=== PATIENT | female | born 1955 | race Caucasian/White ===

== ENCOUNTER 2019-11-22 09:13 | Inpatient (IN) ==
[2019-11-22] MEDS ORDERED: 0.9 % SODIUM CHLORIDE 1,000 ML IV ONE ×3 (09:20→16:19)
[2019-11-22] MEDS ORDERED: cefTRIAXone 1 GM VIAL IV ONE (09:20)
--- NOTE | 2019-11-22 09:20 | Emergency Department Note ---
HPI General Chief complaint: Trauma Stated complaint: blood sugar Time Seen by Provider: 11/22/19 09:17 Mode of arrival: wheelchair History of Present Illness HPI Narrative: 64-year-old patient presenting to the emergency department chief complaint of altered mentation. Historical clues assessed for include recent febrile illness, history of organ failure, medication list evaluation, alcohol drug abuse, recent depression. Patient is confused at time of evaluation and history is limited. There are no exacerbating or ameliorating factors identified at this time. Time course is acute on chronic. Patient with multiple falls history of elevated blood sugar does have a blood sugar monitor continuously assesses her blood sugar and sends updates to her 's phone. received a text alert saying her blood sugar was elevated he went into check on her and noted that she was face down and with decreased responsiveness. EMS was notified and patient was brought into the emergency department. Patient had line started in the field no medications or other actions were taken. Patient was responsive to name and questioning during stay and initial presentation to the ED. Related Data Home Medications Medication Instructions Recorded Confirmed albuterol sulfate [ProAir HFA] 1 - 2 puff IH PRN PRN 12/30/14 01/29/17 mdiavpzxkb-xabhpqwxqk-uof-cod 1 cap PO DAILYP PRN 12/30/14 01/29/17 cholecalciferol (vitamin D3) 2,000 unit PO QDAY 12/30/14 01/29/17 cilostazol [Pletal] 200 mg PO BID 12/30/14 01/29/17 furosemide 40 mg PO BIDD 12/30/14 01/29/17 glucosamine sulfate 2KCl 1,000 mg PO BID 12/30/14 01/29/17 insulin aspart U-100 [Novolog 24 - 28 unit SQ TID 12/30/14 01/29/17 U-100 Insulin aspart] insulin glargine U-300 conc 34 unit SQ HS 12/30/14 01/29/17 [Toujeo SoloStar U-300 Insulin] hzbndmhmntew-dnha-apsbi acid 1 ea PO QDAY 12/30/14 01/29/17 [Centrum Complete] nitroglycerin 0.4 mg SL Q5M PRN 12/30/14 01/29/17 potassium chloride 10 meq PO BIDCC 12/30/14 01/29/17 pregabalin [Lyrica] 150 mg PO TID 12/30/14 01/29/17 venlafaxine 75 mg PO BID 12/30/14 01/29/17 zolpidem 10 mg PO HSP PRN 12/30/14 01/29/17 rabeprazole [AcipHex] 20 mg PO ACB 10/13/15 01/29/17 Hydrocodone/Apap 7.5/325mg [[place] 1 tab PO TIDP PRN 02/01/16 01/29/17 7.5-325mg] aspirin 325 mg PO DAILY 02/07/16 01/29/17 amiodarone 200 mg tablet 200 mg PO .unknown tab 09/09/19 09/09/19 apixaban 5 mg tablet 5 mg PO .unknown tab 09/09/19 09/09/19 calcipotriene 0.005 % topical cream 1 applic TOPICAL .unknown g 09/09/19 09/09/19 carbidopa 10 mg-levodopa 100 mg 1 tab PO .unknown tab 09/09/19 09/09/19 tablet lorazepam 2 mg tablet 2 mg PO .unknown PRN tab 09/09/19 09/09/19 metoprolol tartrate 100 mg tablet 100 mg PO .unknown tab 09/09/19 09/09/19 morphine 15 mg tablet,extended 15 mg PO BID tab 09/09/19 09/09/19 release naloxone 4 mg/actuation nasal spray 4 mg INTRANASAL Q2M PRN 09/09/19 09/09/19 pregabalin 75 mg capsule 75 mg PO QID cap 09/09/19 09/09/19 Previous Rx's Medication Instructions Recorded methocarbamol 750 mg PO Q6HP PRN #30 tablet 02/09/16 Allergies Allergy/AdvReac Type Severity Reaction Status Date / Time indomethacin [From Indocin] Allergy Severe Rash Verified 05/28/16 09:16 Amoxicillin [From Augmentin] Allergy Intermediate Rash Verified 05/28/16 09:16 clavulanic acid Allergy Intermediate Rash Verified 05/28/16 09:16 [From Augmentin] Penicillins Allergy Intermediate Rash Verified 05/28/16 09:16 fentanyl Allergy burning Verified 09/09/19 13:32 sesation throughout body hydromorphone [From Dilaudid] Allergy HTN, Verified 09/09/19 13:32 Migraines NSAIDS (Non-Steroidal Allergy unknown Verified 09/09/19 13:32 Anti-Inflamma pregabalin [From Lyrica] Allergy Edema Verified 09/09/19 13:32 clonidine [From Catapres] AdvReac Severe Hypertensio Verified 05/28/16 09:16 n gabapentin [From Neurontin] AdvReac Severe Abdominal Verified 05/28/16 09:16 Pain Iodinated Contrast Media AdvReac Severe Hives Verified 05/28/16 09:16 [Iodinated Contrast Media - IV Dye] methadone [Methadone] AdvReac Severe Swelling Verified 05/28/16 09:16 propranolol [From Inderal LA] AdvReac Severe Difficulty Verified 05/28/16 09:16 Breathing ziconotide [From Prialt] AdvReac Severe Other Verified 05/28/16 09:16 Review of Systems All systems ED: reviewed and negative except as stated. [facility] Medical/Surgical/Family History All Active Problems (Updated 11/22/19 @ 19:07 by Simone Young MD) Sepsis (Acute) Complex regional pain syndrome i of upper limb, bilateral (Chronic) Complex regional pain syndrome i of lower limb, bilateral (Chronic) Chronic pain (Chronic) Cervical spondylosis with radiculopathy (Chronic) Spondylosis without myelopathy or radiculopathy, lumbar region (Chronic) Knee osteoarthritis (Acute) S/P total knee arthroplasty (Acute) Urinary tract infection (Acute) Medical History (Updated 11/22/19 @ 19:07 by Simone Young MD) Cervical spondylosis with radiculopathy (Chronic) Chronic pain (Chronic) Complex regional pain syndrome i of lower limb, bilateral (Chronic) Complex regional pain syndrome i of upper limb, bilateral (Chronic) Knee osteoarthritis (Acute) Spondylosis without myelopathy or radiculopathy, lumbar region (Chronic) Urinary tract infection (Acute) Surgical History (Updated 10/18/16 @ 14:10 by [employer] [place]) S/P total knee arthroplasty (Acute) Social History Smoking Status: Former smoker Exam Narrative Narrative: General: Alert, somnolent poorly interactive initially this did improve during stay in the emergency department store salesperson: Atraumatic, normocephalic Eyes: Extraocular movements intact, sclera anicteric, no conjunctival injection Ears: Pinnae normal, no discharge Mouth: Oral mucosa moist, no acute swelling or evidence of infection Nares: No nasal discharge, patent bilaterally Neck: Trachea midline, full range of motion Chest: Symmetrical chest wall rise, breathing normally; nonlabored respirations Cardiovascular: Patient with excellent perfusion to the extremities; without tachycardia/bradycardia Skin: Patient without area of erythema, patient is without rash, no ascending lymphangitis or lymphadenopathy Extremities: Full range of motion joints, no obvious deformities; patient with erythema and some swelling to the left distal leg, states that this has been present for at least a month Neuro: Alert, disoriented except to person, cranial nerves II through XII grossly intact, patient without lateralizing findings such as weakness, or abnormal reflexes Psychiatric: Patient with some altered mentation Course Course Course Narrative: 64-year-old female noted to have elevated blood sugar by and was found facedown. Patient here noted to be febrile with some confusion and altered mentation. Patient with elevated lactate as well as white blood cell count. Chest x-ray and routine labs are otherwise negative do not indicate a source. Blood cultures are obtained CT chest abdomen pelvis is also obtained, considered spinal tap run initial attempt with a 4-1/2 inch needle was only able to get to bony structures with needle fully inserted. Patient is also had prior back surgery as result radiology is called to perform spinal tap. We did attempt in the ED 2 separate spinal tap. Initially with a 4-1/2 inch needle and then a 7-1/2 inch needle and were unable to obtain CSF. Patient did receive Rocephin immediately after blood cultures were obtained, as well as vancomycin. Patient with improved mentation after fluids and Rocephin however her lactate did increase rather than decrease additional fluids are provided. Findings include increasing temperature, elevated white blood cell count, elevated creatinine at 1.2 received a total of 3 L of IV fluids during her stay in the emergency department. Vital Signs Vital signs: Vital Signs Temperature 102.4 F H 11/22/19 09:14 Pulse Rate 81 11/22/19 09:14 Respiratory Rate 25 H 11/22/19 09:14 Blood Pressure 175/85 11/22/19 09:14 Pulse Oximetry (%) 97 11/22/19 09:14 Temperature 103.3 F H 11/22/19 18:10 Pulse Rate 102 H 11/22/19 18:20 Respiratory Rate 28 H 11/22/19 18:10 Blood Pressure 182/59 11/22/19 18:10 Pulse Oximetry (%) 95 11/22/19 18:20 MDM MDM Narrative Medical decision making narrative: 64-year-old patient presenting to the emergency department chief complaint of altered mental status. Patient's recent medical history is evaluated for infectious illnesses, history of organ failure, medication list, drug/alcohol history, and depression patient's mental status made them unable to provide significant clues to current symptoms differential diagnosis included but not limited to stroke, intracranial hemorrhage, electrolyte derangement, DKA/HHS, sepsis, toxicology including alcohol and overdose, status epilepticus. Presentation patient's vital signs are noted to be abnormal with elevated temperature. Blood cultures CBC CMP, CT head chest abdomen pelvis, chest x-ray are obtained as well as urinalysis. Patient without focus for infection identified with these methods and we attempted to obtain spinal fluid. Discussed the case with Dr. Garcia and the consensus medical opinion is to admit the patient to the ICU for ongoing care related to sepsis. Lab Data Result diagrams: 11/22/19 10:47 11/22/19 10:47 Labs: Lab Results 11/22/19 11/22/19 11/22/19 Range/Units 10:27 10:27 10:43 WBC TNP RBC TNP Hgb TNP Hct TNP MCV TNP MCH TNP MCHC TNP RDW TNP Plt Count TNP MPV TNP Gran % (38.0-78.0) % Lymph % (Auto) (15.5-49.0) % [place] % (Auto) (1.0-12.0) % Eos % (Auto) (0.0-7.0) % Baso % (Auto) (0.0-2.0) % Gran # (1.80-8.00) K/mcL Lymph # (Auto) (1.50-4.80) K/mcL [place] # (Auto) (0.10-0.90) K/mcL Eos # (Auto) (0.00-0.70) K/mcL Baso # (Auto) (0.00-0.30) K/mcL PT 14.9 H (11.9-14.5) sec INR 1.1 (0.9-1.1) VBG Lactic Acid (0.5-2.0) mmol/L Sodium TNP Potassium TNP Chloride TNP Carbon Dioxide TNP Anion Gap TNP BUN TNP Creatinine TNP GFR Calculation TNP Glucose TNP Calcium TNP Total Bilirubin TNP AST TNP ALT TNP Alkaline Phosphatase TNP Total Protein TNP Albumin TNP Globulin TNP Albumin/Globulin Ratio TNP Urine Color Urine Appearance Urine pH (5.0-9.0) Ur Specific [place] (1.000-1.035) Urine Protein (NEG) mg/dL Urine Glucose (UA) (NEG) mg/dL Urine Ketones (NEG) mg/dL Urine Occult Blood (<0.03) mg/dL Urine Nitrate (NEG) Urine Bilirubin (NEG) mg/dL Urine Urobilinogen (NEG) mg/dL Ur Leukocyte Esterase (NEG) /uL Urine RBC (0-1) /hpf Urine WBC (0-4) /hpf Ur Squamous Epith Cells (0-4) /hpf Ur Transition Epith Cell (0-2) /hpf Amorphous Crystals (0) /hpf Urine Bacteria (0) /hpf Urine Mucus (0) /hpf Ur Culture Indicated? 11/22/19 11/22/19 11/22/19 Range/Units 10:47 10:47 10:47 WBC 27.6 H RBC 4.93 Hgb 13.8 Hct 42.5 MCV 86.2 MCH 28.0 MCHC 32.5 RDW 13.9 Plt Count 201 MPV 11.4 H Gran % 94.7 H (38.0-78.0) % Lymph % (Auto) 2.2 L (15.5-49.0) % [place] % (Auto) 2.7 (1.0-12.0) % Eos % (Auto) 0.1 (0.0-7.0) % Baso % (Auto) 0.3 (0.0-2.0) % Gran # 26.15 H (1.80-8.00) K/mcL Lymph # (Auto) 0.60 L (1.50-4.80) K/mcL [place] # (Auto) 0.75 (0.10-0.90) K/mcL Eos # (Auto) 0.02 (0.00-0.70) K/mcL Baso # (Auto) 0.09 (0.00-0.30) K/mcL PT (11.9-14.5) sec INR (0.9-1.1) VBG Lactic Acid 2.9 H (0.5-2.0) mmol/L Sodium 137 Potassium 4.0 Chloride 97 Carbon Dioxide 26 Anion Gap 14.0 BUN 11 Creatinine 1.2 H GFR Calculation 48 Glucose 205 H Calcium 8.6 Total Bilirubin 0.5 AST 21 ALT 15 Alkaline Phosphatase 118 H Total Protein 6.9 Albumin 2.9 L Globulin 4.0 H Albumin/Globulin Ratio 0.7 L Urine Color Urine Appearance Urine pH (5.0-9.0) Ur Specific [place] (1.000-1.035) Urine Protein (NEG) mg/dL Urine Glucose (UA) (NEG) mg/dL Urine Ketones (NEG) mg/dL Urine Occult Blood (<0.03) mg/dL Urine Nitrate (NEG) Urine Bilirubin (NEG) mg/dL Urine Urobilinogen (NEG) mg/dL Ur Leukocyte Esterase (NEG) /uL Urine RBC (0-1) /hpf Urine WBC (0-4) /hpf Ur Squamous Epith Cells (0-4) /hpf Ur Transition Epith Cell (0-2) /hpf Amorphous Crystals (0) /hpf Urine Bacteria (0) /hpf Urine Mucus (0) /hpf Ur Culture Indicated? 11/22/19 11/22/19 Range/Units 12:38 13:30 WBC RBC Hgb Hct MCV MCH MCHC RDW Plt Count MPV Gran % (38.0-78.0) % Lymph % (Auto) (15.5-49.0) % [place] % (Auto) (1.0-12.0) % Eos % (Auto) (0.0-7.0) % Baso % (Auto) (0.0-2.0) % Gran # (1.80-8.00) K/mcL Lymph # (Auto) (1.50-4.80) K/mcL [place] # (Auto) (0.10-0.90) K/mcL Eos # (Auto) (0.00-0.70) K/mcL Baso # (Auto) (0.00-0.30) K/mcL PT (11.9-14.5) sec INR (0.9-1.1) VBG Lactic Acid 4.3 H* (0.5-2.0) mmol/L Sodium Potassium Chloride Carbon Dioxide Anion Gap BUN Creatinine GFR Calculation Glucose Calcium Total Bilirubin AST ALT Alkaline Phosphatase Total Protein Albumin Globulin Albumin/Globulin Ratio Urine Color Yellow Urine Appearance Hazy Urine pH 6.0 (5.0-9.0) Ur Specific [place] 1.016 (1.000-1.035) Urine Protein >=500 A (NEG) mg/dL Urine Glucose (UA) 50 A (NEG) mg/dL Urine Ketones Neg (NEG) mg/dL Urine Occult Blood >=1.0 A (<0.03) mg/dL Urine Nitrate Neg (NEG) Urine Bilirubin Neg (NEG) mg/dL Urine Urobilinogen Neg (NEG) mg/dL Ur Leukocyte Esterase Neg (NEG) /uL Urine RBC 176 H (0-1) /hpf Urine WBC 5 H (0-4) /hpf Ur Squamous Epith Cells 2 (0-4) /hpf Ur Transition Epith Cell 1 (0-2) /hpf Amorphous Crystals Few A (0) /hpf Urine Bacteria 0 (0) /hpf Urine Mucus Few (0) /hpf Ur Culture Indicated? No CC TIME Critical Care Time Critical Care Time: Yes Total Critical Care Time: 120 Attestation: This critical care time was direct patient care exclusive of other procedures. Discharge Plan Patient/Caregiver Discharge Instructions Pt seen by ACADEMY DIRECTOR/PA only: No Clinical Impression: Sepsis Prescriptions: No Action Narcan 4 mg/actuation spray,non-aerosol 4 mg INTRANASAL Q2M PRNRF: 0 morphine 15 mg tablet extended release 15 mg PO BID RF: 0 carbidopa-levodopa 10-100 mg tablet 1 tab PO .unknown RF: 0 Eliquis 5 mg tablet 5 mg PO .unknown RF: 0 amiodarone 200 mg tablet 200 mg PO .unknown RF: 0 metoprolol tartrate 100 mg tablet 100 mg PO .unknown RF: 0 pregabalin [Lyrica] 75 mg capsule 75 mg PO QID RF: 0 lorazepam 2 mg tablet 2 mg PO .unknown PRNRF: 0 calcipotriene [Dovonex] 0.005 % cream 1 applic TOPICAL .unknown RF: 0 furosemide 40 MG tablet 40 mg PO BIDD RF: 0 venlafaxine 75 MG tablet 75 mg PO BID RF: 0 cilostazol [Pletal] 50 MG tablet 200 mg PO BID RF: 0 potassium chloride 10 MEQ tablet extended release 10 meq PO BIDCC RF: 0 insulin aspart U-100 [Novolog U-100 Insulin aspart] 100 UNIT/ML solution 24 - 28 unit SQ TID RF: 0 oktomizlit-hncsdoinym-llq-cod 1 EACH capsule 1 cap PO DAILYP PRN (Reason: Migraine Headache) RF: 0 nitroglycerin 0.4 MG tablet, sublingual 0.4 mg SL Q5M PRN (Reason: Chest Pain) RF: 0 zolpidem 10 MG tablet 10 mg PO HSP PRN (Reason: Insomnia) RF: 0 pregabalin [Lyrica] 150 MG capsule 150 mg PO TID RF: 0 insulin glargine U-300 conc [Toujeo SoloStar U-300 Insulin] 300 UNIT/ML insulin pen 34 unit SQ HS RF: 0 glucosamine sulfate 2KCl 1,000 MG tablet 1,000 mg PO BID RF: 0 cholecalciferol (vitamin D3) 2,000 UNIT tablet 2,000 unit PO QDAY RF: 0 qbxnunplvjtj-ayfj-tgrfn acid [Centrum Complete] 1 EACH tablet 1 ea PO QDAY RF: 0 albuterol sulfate [ProAir HFA] 8.5 GM HFA aerosol inhaler 1 - 2 puff IH PRN PRN (Reason: Shortness Of Breath) RF: 0 rabeprazole [AcipHex] 20 MG tablet,delayed release (DR/EC) 20 mg PO ACB RF: 0 Hydrocodone/Apap 7.5/325mg [[place] 7.5-325mg] 1 TAB Tablet 1 tab PO TIDP PRN (Reason: Pain) RF: 0 aspirin 325 MG tablet,delayed release (DR/EC) 325 mg PO DAILY RF: 0 methocarbamol 750 MG tablet 750 mg PO Q6HP PRN (Reason: Muscle Spasm) Qty: 30 RF: 0 Follow up with: Derrek Keen MD [Primary Care Provider] - Patient Disposition: Xfer As Inpt ([facility]) Overall status at discharge: patient is not back to baseline
--- NOTE | 2019-11-22 10:41 | XRay Report ---
INDICATION: CP/dyspnea TECHNIQUE: AP portable semiupright chest x-ray COMPARISON: Previous examination dated 12/23/2013 FINDINGS:Suboptimal chest x-ray due to large body habitus Lungs:Lungs are negative. No focal pulmonary parenchymal infiltrate or mass Heart, vascular:No significant cardiomegaly. Pulmonary vascularity is normal. No pulmonary edema or pulmonary congestion Mediastinum, josette:No mediastinal widening. No hilar mass Pleura:No pleural fluid. No pleural-based mass or calcification Skeletal:Negative. IMPRESSION: Negative AP portable chest x-ray Interpreted and Authenticated by: Ramses Cantor 11/22/19
[2019-11-22 12:09] LABS: Basophils # (Auto) 0.09 K/mcL (0.00-0.30); Basophils % (Auto) 0.3 % (0.0-2.0); Eosinophils # (Auto) 0.02 K/mcL (0.00-0.70); Eosinophils % (Auto) 0.1 % (0.0-7.0); Granulocytes % (Auto) 94.7 % (38.0-78.0); Hematocrit 42.5 % (34.1-44.9); Hemoglobin 13.8 g/dL (11.2-15.7); Lymphocytes % (Auto) 2.2 % (15.5-49.0); Mean Cell Volume 86.2 fL (80.0-100.0); Mean Corpuscular HGB Conc 32.5 g/dL (31.0-36.0); Mean Platelet Volume 11.4 fL (7.4-10.4); Monocytes # (Auto) 0.75 K/mcL (0.10-0.90); Monocytes % (Auto) 2.7 % (1.0-12.0); Platelet Count 201 K/mcL (140-440); RBC 4.93 M/mcL (3.59-5.38); Red Cell Distribution Width 13.9 % (11.5-14.5); WBC 27.6 K/mcL (4.50-11.00)
[2019-11-22 12:11] LABS: ALT/SGPT 15 U/l (0-40); AST/SGOT 21 U/l (0-37); Albumin 2.9 gm/dL (3.2-5.2); Albumin/Globulin Ratio 0.7 (1.0-2.3); Alkaline Phosphatase 118 U/L (39-117); Bilirubin,Total 0.5 mg/dL (0.0-1.0); Blood Urea Nitrogen 11 mg/dl (8-23); Calcium 8.6 mg/dl (8.6-10.4); Carbon Dioxide 26 mmol/L (22-30); Chloride 97 mmol/L (96-108); Glomerular Filtration Rate 48; Glucose 205 mg/dL (70-105)
--- NOTE | 2019-11-22 14:33 | Cat Scan Report ---
INDICATION: trauma, fell face down COMPARISON: None. TECHNIQUE: Axial noncontrast-enhanced images through the brain. Sagittally and coronally reformatted images. FINDINGS: Cerebral hemispheres:Negative. No intra-axial abnormality. No intra-axial hematoma. No localized mass effect. Brain volume is within normal limits. No hydrocephalus Brainstem and cerebellum:No intra-axial abnormality Extra-axial:No acute hemorrhage. No subdural or epidural hematoma. No subarachnoid hemorrhage. Basilar cisterns are normal Calvarial:No calvarial fracture. No lytic lesion Temporal bones are negative. No destructive lesions Soft tissue:Orbits and visualized facial soft tissues are grossly normal. IMPRESSION: Negative noncontrast enhanced brain CT scan The exam was performed using radiation dose optimization techniques including, but not limited to, automated exposure control, adjustment of the mA and/or kV according to patient size and use of iterative reconstruction technique. Interpreted and Authenticated by: Ramses Cantor 11/22/19
--- NOTE | 2019-11-22 14:35 | Cat Scan Report ---
INDICATION: fall COMPARISON: None. TECHNIQUE: Axial thin section images through the cervical spine. Sagittally and coronally reformatted images. The exam was performed using radiation dose optimization techniques including, but not limited to, automated exposure control, adjustment of the mA and/or kV according to patient size and use of iterative reconstruction technique. FINDINGS: Vertebral bodies, spinous processes:No vertebral body or spinous process fracture. No acute abnormality. Alignment is anatomic without anterolisthesis. Odontoid process is normal. Occipital condyles and C1 are negative. No atlantoaxial subluxation Facets:No perched or locked facet. No facet complex fracture. Disc spaces:Severe degenerative disc disease at C5-6. Mild to moderate degenerative disc disease at C4-5 and C6-7. Temporal bones:Negative. No basilar skull fracture Cervical soft tissues:Negative. No prevertebral soft tissue swelling. No focal soft tissue mass or acute abnormality Lung apices:No pneumothorax. No pulmonary contusion. IMPRESSION: 1. Degenerative disc disease 2. No cervical spine fracture Interpreted and Authenticated by: Ramses Cantor 11/22/19
[2019-11-22 14:40] LABS: Appearance,Urine HAZY; Bacteria,Urine 0 /hpf (0); Bilirubin,Urine NEG (NEG); Color,Urine YELLOW; Culture Indicated,Urine NO; Glucose,Urine (UA) 50 mg/dL (NEG); Ketones,Urine NEG (NEG); Leukocyte Esterase,Urine NEG /uL (NEG); Mucus,Urine FEW /hpf (0); Nitrate,Urine NEG (NEG); Protein,Urine >=500 mg/dL (NEG); Specific Gravity,Urine 1.016 (1.000-1.035); Urine Amorphous Crystals FEW /hpf (0); Urine Blood >=1.0 mg/dL (<0.03); Urine RBC 176 /hpf (0-1); Urine Squamous Epithelial Cell 2 /hpf (0-4); Urine Transitional Epi Cells 1 /hpf (0-2); Urine WBC 5 /hpf (0-4); Urobilinogen,Urine NEG (NEG)
--- NOTE | 2019-11-22 14:48 | Cat Scan Report ---
INDICATION: sepsis no source identified, pt with AMS/confusion COMPARISON: None. TECHNIQUE: Axial images were obtained through the chest,abdomen and pelvis. Sagittally and coronally reformatted images. Patient apparently has a contrast allergy and intravenous contrast material was not administered. Patient was unable to drink oral contrast material FINDINGS: Patient was unable to suspend respirations. Patient was scanned with her arms at her sides. This patient is also very large causing image degradation from quantum mottle Chest CT: Lungs: Lungs are suboptimally demonstrated due to shallow inspiration and inability to suspend respiration. Lungs are negative. No parenchymal infiltrate or mass. No calcified or noncalcified nodule Mediastinum:No mediastinal or hilar lymphadenopathy. Thoracic aorta is negative. No aneurysmal enlargement or dissection. Main pulmonary artery is within normal limits. Heart: Mild cardiomegaly. No pericardial effusion. There is calcified coronary artery disease Pleura:No pleural effusion. No pleural-based mass or calcification Axilla, supraclavicular regions, chest wall:No pathologic axillary or supraclavicular lymphadenopathy Musculoskeletal:No thoracic compression fracture. No lytic or sclerotic lesions. Sternum and ribs are negative Abdomen/Pelvis: Liver:Negative to the limits of noncontrast enhanced examination. No detectable mass. Liver contour is smooth Gallbladder, bilary:Previous cholecystectomy. No dilated bile ducts Spleen:No splenomegaly. Pancreas:No pancreatic mass. No pancreatic duct dilatation. No peripancreatic abnormality Adrenal glands:Negative Kidneys, ureters, bladder: Right kidney is negative for the limits of noncontrast enhanced examination. There is no hydronephrosis. No detectable mass. No calculi. Previous left nephrectomy. No hydroureter or ureteral stone No bladder calculi. There is a [place] catheter within the urinary bladder. Gastrointestinal: Previous hemicolectomy. There is a small bowel - transverse colon anastomosis. No detectable colonic mass. No evidence for diverticulitis or significant diverticulosis Small bowel is negative. No mechanical small bowel obstruction Stomach and duodenum are unremarkable. Appendix: The appendix is not present Vascular:No abdominal aortic aneurysm. Origins of the superior mesenteric artery and celiac artery are normal. There is atherosclerotic calcification of the abdominal aorta. Lymphatic:No retroperitoneal or pathologic mesenteric adenopathy Mesentery, peritoneum:No intra-peritoneal fluid. No intra-abdominal abscess. No pneumoperitoneum Reproductive:Previous hysterectomy. No adnexal mass Musculoskeletal:No compression fractures. No lytic lesions. Sacrum, pelvis, hips are negative. There is a left lumbar hernia with slight protrusion of colon. Hernia defect measures approximately 12 cm in mediolateral dimension and 13 cm in craniocaudal dimension. IMPRESSION: 1. Negative noncontrast enhanced chest CT scan. There is no pneumonia 2. Previous left nephrectomy. Previous hemicolectomy with anterolateral colonic anastomosis. Previous hysterectomy. Previous cholecystectomy 3. Left lumbar hernia with slight colonic protrusion. There is no obstruction or incarceration 4. No intra-abdominal abscess. No free intraperitoneal fluid The exam was performed using radiation dose optimization techniques including, but not limited to, automated exposure control, adjustment of the mA and/or kV according to patient size and use of iterative reconstruction technique. Interpreted and Authenticated by: Ramses Cantor 11/22/19
[2019-11-22] MEDS ORDERED: VANCOMYCIN 1,000 MG in 0.9 % SODIUM CHLORIDE 250 ML IV ONE (16:20)
[2019-11-22] MEDS ORDERED: ACETAMINOPHEN 1,000 MG/100 ML BOTTLE IV ONE (17:09)
[2019-11-22 17:33] LABS: INR 1.1 (0.9-1.1); Prothrombin Time 14.9 sec (11.9-14.5)
[2019-11-22] MEDS ORDERED: hydrALAZINE 20 MG/ML VIAL IV PRN ×2 (17:49→18:57)
--- NOTE | 2019-11-22 18:03 | Internal Med History&Physical ---
HPI History of Present Illness Patient information: Note initiated : 11/22/19 at 6:02 pm Service Date, if different from initiated Date: [] Patient: Bobbi Murphy a 64 y/o F admitted on for blood sugar. Chief Complaint: [] History of present illness: Ms. Murphy is a 64 year old F Who presented to the ED after her was notified via monitor that her blood sugar was elevated and checking on her she was obtunded and facedown. She actually had nearly an identical presentation in September 2018 she was found obtunded with a fever. She was started on broad-spectrum Bactrim antibiotics including acyclovir and did have a elevated lactate with the increase in her repeat lactate as well [place]. Lumbar puncture was ordered but no seen results that were ever done. Her septic picture is attributed to left lower extremity infection which she has had before and what I suspect is the current source. Does not report that her says she was a DNR but I have not talked to the and unable to gather accurate history from the given her altered mental state. She is on significant number of medications that may be contributing to her altered mental state. unAble to gather review of systems [facility] Medical History (Updated 09/09/19 @ 13:44 by Angela Uribe RN) Cervical spondylosis with radiculopathy (Chronic) Chronic pain (Chronic) Complex regional pain syndrome i of lower limb, bilateral (Chronic) Complex regional pain syndrome i of upper limb, bilateral (Chronic) Knee osteoarthritis (Acute) Spondylosis without myelopathy or radiculopathy, lumbar region (Chronic) Urinary tract infection (Acute) Surgical History (Updated 10/18/16 @ 14:10 by Brandfolder MI) S/P total knee arthroplasty (Acute) Social History (Updated 08/01/17 @ 09:32 by Kyra Bradley, CELESTE, LD, CD) smoking status: Former smoker MEDS/ALLERGIES Home Medications and Allergies Home Medications Medication Instructions Recorded Confirmed Type albuterol sulfate [ProAir HFA] 1 - 2 puff IH PRN PRN 12/30/14 01/29/17 History wcwknehzzg-mfkgortmrc-cmo-cod 1 cap PO DAILYP PRN 12/30/14 01/29/17 History cholecalciferol (vitamin D3) 2,000 unit PO QDAY 12/30/14 01/29/17 History cilostazol [Pletal] 200 mg PO BID 12/30/14 01/29/17 History furosemide 40 mg PO BIDD 12/30/14 01/29/17 History glucosamine sulfate 2KCl 1,000 mg PO BID 12/30/14 01/29/17 History insulin aspart U-100 [Novolog 24 - 28 unit SQ TID 12/30/14 01/29/17 History U-100 Insulin aspart] insulin glargine U-300 conc 34 unit SQ HS 12/30/14 01/29/17 History [Toujeo SoloStar U-300 Insulin] fmcxywrwgrdp-inzl-wxxxo acid 1 ea PO QDAY 12/30/14 01/29/17 History [Centrum Complete] nitroglycerin 0.4 mg SL Q5M PRN 12/30/14 01/29/17 History potassium chloride 10 meq PO BIDCC 12/30/14 01/29/17 History pregabalin [Lyrica] 150 mg PO TID 12/30/14 01/29/17 History venlafaxine 75 mg PO BID 12/30/14 01/29/17 History zolpidem 10 mg PO HSP PRN 12/30/14 01/29/17 History rabeprazole [AcipHex] 20 mg PO ACB 10/13/15 01/29/17 History Hydrocodone/Apap 7.5/325mg [[place] 1 tab PO TIDP PRN 02/01/16 01/29/17 History 7.5-325mg] aspirin 325 mg PO DAILY 02/07/16 01/29/17 History methocarbamol 750 mg PO Q6HP PRN #30 tablet 02/09/16 01/29/17 Rx amiodarone 200 mg tablet 200 mg PO .unknown tab 09/09/19 09/09/19 History apixaban 5 mg tablet 5 mg PO .unknown tab 09/09/19 09/09/19 History calcipotriene 0.005 % topical cream 1 applic TOPICAL .unknown g 09/09/19 09/09/19 History carbidopa 10 mg-levodopa 100 mg 1 tab PO .unknown tab 09/09/19 09/09/19 History tablet lorazepam 2 mg tablet 2 mg PO .unknown PRN tab 09/09/19 09/09/19 History metoprolol tartrate 100 mg tablet 100 mg PO .unknown tab 09/09/19 09/09/19 History morphine 15 mg tablet,extended 15 mg PO BID tab 09/09/19 09/09/19 History release naloxone 4 mg/actuation nasal spray 4 mg INTRANASAL Q2M PRN 09/09/19 09/09/19 History pregabalin 75 mg capsule 75 mg PO QID cap 09/09/19 09/09/19 History Allergies Allergy/AdvReac Type Severity Reaction Status Date / Time indomethacin [From Indocin] Allergy Severe Rash Verified 05/28/16 09:16 Amoxicillin [From Augmentin] Allergy Intermediate Rash Verified 05/28/16 09:16 clavulanic acid Allergy Intermediate Rash Verified 05/28/16 09:16 [From Augmentin] Penicillins Allergy Intermediate Rash Verified 05/28/16 09:16 fentanyl Allergy burning Verified 09/09/19 13:32 sesation throughout body hydromorphone [From Dilaudid] Allergy HTN, Verified 09/09/19 13:32 Migraines NSAIDS (Non-Steroidal Allergy unknown Verified 09/09/19 13:32 Anti-Inflamma pregabalin [From Lyrica] Allergy Edema Verified 09/09/19 13:32 clonidine [From Catapres] AdvReac Severe Hypertensio Verified 05/28/16 09:16 n gabapentin [From Neurontin] AdvReac Severe Abdominal Verified 05/28/16 09:16 Pain Iodinated Contrast Media AdvReac Severe Hives Verified 05/28/16 09:16 [Iodinated Contrast Media - IV Dye] methadone [Methadone] AdvReac Severe Swelling Verified 05/28/16 09:16 propranolol [From Inderal LA] AdvReac Severe Difficulty Verified 05/28/16 09:16 Breathing ziconotide [From Prialt] AdvReac Severe Other Verified 05/28/16 09:16 EXAM Constitutional Vitals: Temp Pulse Resp BP Pulse Ox 103.7 F H 85 26 H 211/71 90 11/22/19 16:19 11/22/19 16:19 11/22/19 16:19 11/22/19 16:10 11/22/19 16:19 Exam: General: Appears agitated, confused, obese Eyes/N/T: EOMI, PERRL, Head/Neck: neck supple, normocephalic atraumatic CV: RRR, 2/6 SM Pulm: Clear b/l, no wheezing/rhonchi/rales Abd: soft, nontender, +BS x4 Ext: no clubbing/cyanosis, b/l LE 2-3+ edema. LLE erythematous/hot to touch/tender to touch Neuro: awake, occasionally follows a command but otherwise not following most. Answered only a couple questions, seemed to understand some of my questions but nodded head no that she was unable to answer correctly skin: warm/dry DATA Data Completed and Pending Labs on day of discharge: Labs from last 24 hours 11/22/19 11/22/19 11/22/19 13:30 12:38 10:47 WBC RBC Hgb Hct MCV MCH MCHC RDW Plt Count MPV Gran % Lymph % (Auto) Kerr % (Auto) Eos % (Auto) Baso % (Auto) Gran # Lymph # (Auto) Kerr # (Auto) Eos # (Auto) Baso # (Auto) PT INR VBG Lactic Acid 4.3 H* Sodium 137 Potassium 4.0 Chloride 97 Carbon Dioxide 26 Anion Gap 14.0 BUN 11 Creatinine 1.2 H GFR Calculation 48 Glucose 205 H Calcium 8.6 Total Bilirubin 0.5 AST 21 ALT 15 Alkaline Phosphatase 118 H Total Protein 6.9 Albumin 2.9 L Globulin 4.0 H Albumin/Globulin Ratio 0.7 L Urine Color Yellow Urine Appearance Hazy Urine pH 6.0 Ur Specific [place] 1.016 Urine Protein >=500 A Urine Glucose (UA) 50 A Urine Ketones Neg Urine Occult Blood >=1.0 A Urine Nitrate Neg Urine Bilirubin Neg Urine Urobilinogen Neg Ur Leukocyte Esterase Neg Urine RBC 176 H Urine WBC 5 H Ur Squamous Epith Cells 2 Ur Transition Epith Cell 1 Amorphous Crystals Few A Urine Bacteria 0 Urine Mucus Few Ur Culture Indicated? No 11/22/19 11/22/19 11/22/19 10:47 10:47 10:43 WBC 27.6 H RBC 4.93 Hgb 13.8 Hct 42.5 MCV 86.2 MCH 28.0 MCHC 32.5 RDW 13.9 Plt Count 201 MPV 11.4 H Gran % 94.7 H Lymph % (Auto) 2.2 L Kerr % (Auto) 2.7 Eos % (Auto) 0.1 Baso % (Auto) 0.3 Gran # 26.15 H Lymph # (Auto) 0.60 L Kerr # (Auto) 0.75 Eos # (Auto) 0.02 Baso # (Auto) 0.09 PT 14.9 H INR 1.1 VBG Lactic Acid 2.9 H Sodium Potassium Chloride Carbon Dioxide Anion Gap BUN Creatinine GFR Calculation Glucose Calcium Total Bilirubin AST ALT Alkaline Phosphatase Total Protein Albumin Globulin Albumin/Globulin Ratio Urine Color Urine Appearance Urine pH Ur Specific [place] Urine Protein Urine Glucose (UA) Urine Ketones Urine Occult Blood Urine Nitrate Urine Bilirubin Urine Urobilinogen Ur Leukocyte Esterase Urine RBC Urine WBC Ur Squamous Epith Cells Ur Transition Epith Cell Amorphous Crystals Urine Bacteria Urine Mucus Ur Culture Indicated? 11/22/19 11/22/19 10:27 10:27 WBC TNP RBC TNP Hgb TNP Hct TNP MCV TNP MCH TNP MCHC TNP RDW TNP Plt Count TNP MPV TNP Gran % Lymph % (Auto) Kerr % (Auto) Eos % (Auto) Baso % (Auto) Gran # Lymph # (Auto) Kerr # (Auto) Eos # (Auto) Baso # (Auto) PT INR VBG Lactic Acid Sodium TNP Potassium TNP Chloride TNP Carbon Dioxide TNP Anion Gap TNP BUN TNP Creatinine TNP GFR Calculation TNP Glucose TNP Calcium TNP Total Bilirubin TNP AST TNP ALT TNP Alkaline Phosphatase TNP Total Protein TNP Albumin TNP Globulin TNP Albumin/Globulin Ratio TNP Urine Color Urine Appearance Urine pH Ur Specific [place] Urine Protein Urine Glucose (UA) Urine Ketones Urine Occult Blood Urine Nitrate Urine Bilirubin Urine Urobilinogen Ur Leukocyte Esterase Urine RBC Urine WBC Ur Squamous Epith Cells Ur Transition Epith Cell Amorphous Crystals Urine Bacteria Urine Mucus Ur Culture Indicated? A/P Narrative A/P Narrative: A: *Sepsis: 2/2 likely LLE *Lactic acidosis: 2/2 above *Cellulitis LLE: *Encephalopathy, acute: 2/2 above + polypharmacy *HTN urgency: *FABIAN, mild: *DM: On insulin at home *PAF: On amiodarone and apixaban *Polypharmacy: *CKD III: *Depression/anxiety: *Morbid obesity: *PVD: On cilostazol *GERD: *Complex regional pain syndrome: Follows with Dr. Bernard *?home med Sinemet P: -IVF, f/u lactate -pending LP -Vanc/Cefepime, pending BC -UDS/ABG/PCT pending -prn hydralazine, monitor bp closely; clarify if on home BP meds -basal and ssi -cont home amio -clarify home meds - -pt/ot -ppx:apixaban/home ppi Time Spent With Patient Time: Total time spent is greater than 50% in coordination of care (as documented) at patient's floor/unit and/or counseling patient:
[2019-11-22] MEDS ORDERED: LORazepam 2 MG/ML VIAL IV ONE (18:26)
--- NOTE | 2019-11-22 18:53 | XRay Report ---
INDICATION: Elevated WBC. TECHNIQUE: Fluoroscopic lumbar puncture was attempted. The emergency room nurses were present to sedate the patient. Despite giving intravenous medication this patient would not stop moving. She was combative and we were unable to successfully perform a lumbar puncture. IMPRESSION: Unsuccessful attempt at fluoroscopic guided lumbar puncture due to patient combativeness Interpreted and Authenticated by: Ramses Cantor 11/22/19
[2019-11-22] MEDS ORDERED: BISACODYL 10 MG SUPP.RECT PR PRN (18:57)
[2019-11-22] MEDS ORDERED: SENNOSIDES 1 TABLET PO PRN (18:57)
[2019-11-22] MEDS ORDERED: ONDANSETRON 4 MG/2 ML VIAL IV PRN (18:57)
[2019-11-22] MEDS ORDERED: METOCLOPRAMIDE 10 MG/2 ML VIAL IV PRN ×2 (18:57→19:45)
[2019-11-22] MEDS ORDERED: LORazepam 2 MG/ML VIAL IV PRN (18:57)
[2019-11-22] MEDS ORDERED: ACETAMINOPHEN 650 MG SUPP.RECT PR PRN (18:57)
[2019-11-22] MEDS ORDERED: VANCOMYCIN PER PHARMACY IV SCH (18:57)
[2019-11-22] MEDS: LACTATED RINGERS 1,000 ML IV SCH (19:21)
[2019-11-22] MEDS: CEFEPIME 2 GM VIAL IV SCH (19:34)
[2019-11-22 19:57] LABS: Estimated Average Glucose(eAG) 174 mg/dL; Hemoglobin A1C 7.7 % HGB (4.0-6.0)
[2019-11-22 20:11] LABS: INR 1.1 (0.9-1.1); Prothrombin Time 14.8 sec (11.9-14.5)
[2019-11-22] MEDS ORDERED: LACTATED RINGERS 1,000 ML IV ONE (20:21)
[2019-11-22 20:27] LABS: Insulin 63.4 uU/mL (2.6-24.9)
[2019-11-22 20:51] LABS: POC Blood Urea Nitrogen 13 mg/dl (8-23); POC CO2 21 mmol/L (22-30); POC Calcium, Ionized 0.99 mmol/L (1.16-1.32); POC Chloride 104 mmol/L (96-108); POC Creatinine 1.1 mg/dl (0.6-1.1); POC Glucose, Random 254 mg/dL (70-105); POC Potassium 3.5 mmol/L (3.3-5.1); POC Sodium 140 mmol/L (133-145)
[2019-11-22] MEDS ORDERED: CLINDAMYCIN 900 MG in DEXTROSE 5% IN WATER 50 ML IV ONE (21:00)
[2019-11-22] MEDS ORDERED: VANCOMYCIN 500 MG in 0.9 % SODIUM CHLORIDE 100 ML IV ONE (21:00)
[2019-11-22] MEDS: DOCUSATE SODIUM 100 MG CAPSULE PO SCH (22:01)
[2019-11-22] MEDS: 0.9 % SODIUM CHLORIDE 10 ML SYRINGE IV SCH (22:01)
[2019-11-22 22:02] LABS: Amphetamine Screen,Urine NONE DETECTED (NONDETECTED); Barbiturate Screen,Urine SUSPECT POSITIVE (NONDETECTED); Benzodiazepines Screen,Urine NONE DETECTED (NONDETECTED); Cannabinoid Screen,Urine NONE DETECTED (NONDETECTED); Cocaine Screen,Urine NONE DETECTED (NONDETECTED); Opiate Screen,Urine SUSPECT POSITIVE (NONDETECTED); Oxycodone, Urine Screen NONE DETECTED (NONDETECTED); Phencyclidine Screen,Urine NONE DETECTED (NONDETECTED)
[2019-11-22] MEDS ORDERED: ACYCLOVIR SODIUM 500 MG VIAL IV SCH (23:00)
[2019-11-22] MEDS: LORazepam 2 MG/ML VIAL IV PRN (23:00)
[2019-11-22] MEDS ORDERED: DEXMEDETOMIDINE 100 ML IV ONE (23:12)
[2019-11-22] MEDS: DEXMEDETOMIDINE 400 MCG in PREMIX 1 BAG IV SCH (23:20)
[2019-11-23] MEDS ORDERED: VANCOMYCIN 750 MG in 0.9 % SODIUM CHLORIDE 250 ML IV ONE
[2019-11-23] MEDS ORDERED: ACETAMINOPHEN 1,000 MG/100 ML BOTTLE IV ONE (00:51)
[2019-11-23] MEDS: INSULIN LISPRO 1 UNIT/0.01 ML UNIT SQ SCH ×5 (01:19→21:21)
[2019-11-23] MEDS: FAMOTIDINE/PF 20 MG/2 ML VIAL IV SCH ×3 (01:22→21:21)
[2019-11-23] MEDS: DEXMEDETOMIDINE 400 MCG in PREMIX 1 BAG IV SCH ×4 (04:36→20:29)
[2019-11-23] MEDS ORDERED: DEXMEDETOMIDINE 100 ML IV ONE (04:39)
--- NOTE | 2019-11-23 05:32 | Cat Scan Report ---
INDICATION: Leg pain and erythema. Possible necrotizing fasciitis TECHNIQUE: Axial images through the left lower extremity. Sagittal and coronal reformatted images COMPARISON: None. FINDINGS: The examination was initially interpreted by [facility] Patient has undergone previous left total knee arthroplasty. There is beam hardening artifact. In the left lower extremity caudal to the knee replacement there is subcutaneous edema. This is anterior, posterior, and lateral with relative sparing medially. Appearance is consistent with nonspecific edema. No focal fluid collection identified. No soft tissue gas or radiopaque foreign body. Cellulitis is possible. Deep muscle compartments are grossly normal. No detectable compartmental mass. No soft tissue gas. No detectable abscess. Tibia and fibula are negative for new cortical destruction. No evidence for osteomyelitis IMPRESSION: 1. Diffuse subcutaneous edema. No discrete abscess 2. No soft tissue gas. No deep compartment abnormality Interpreted and Authenticated by: Ramses Cantor 11/23/19
[2019-11-23 06:56] LABS: INR 1.3 (0.9-1.1); Prothrombin Time 16.6 sec (11.9-14.5)
[2019-11-23 07:00] LABS: ALT/SGPT 12 U/l (0-40); AST/SGOT 23 U/l (0-37); Albumin 2.2 gm/dL (3.2-5.2); Alkaline Phosphatase 78 U/L (39-117); Bilirubin,Direct < 0.2 mg/dL (0.0-0.3); Bilirubin,Total 0.3 mg/dL (0.0-1.0); Blood Urea Nitrogen 17 mg/dl (8-23); Calcium 7.6 mg/dl (8.6-10.4); Carbon Dioxide 23 mmol/L (22-30); Chloride 102 mmol/L (96-108); Glomerular Filtration Rate 48; Glucose 218 mg/dL (70-105); Lactate Dehydrogenase 301 U/L (94-250); Triglycerides 76 mg/dl (<150)
[2019-11-23] MEDS ORDERED: ACYCLOVIR SODIUM IV SCH (07:00)
[2019-11-23] MEDS ORDERED: SODIUM CHLORIDE 0.9% IV SCH (07:00)
[2019-11-23 07:01] LABS: Albumin/Globulin Ratio 0.7 (1.0-2.3); Globulin 3.3 gm/dL (2.2-3.7); Phosphorous 1.6 mg/dL (2.7-4.5)
--- NOTE | 2019-11-23 07:19 | Internal Med Progress Note ---
SUBJECTIVE Subjective Patient information: Note initiated : 11/23/19 at 7:14 am Service Date, if different from initiated Date: [] Patient: Bobbi Murphy a 64 y/o F admitted on 11/22/19 for blood sugar. Chief Complaint: [] Ms. Murphy is a 64 year old F Who presented to the ED after her was notified via monitor that her blood sugar was elevated and checking on her she was obtunded and facedown. She actually had nearly an identical presentation in September 2018 she was found obtunded with a fever. She was started on broad-spectrum Bactrim antibiotics including acyclovir and did have a elevated lactate with the increase in her repeat lactate as well [place]. Lumbar puncture was ordered but no seen results that were ever done. Her septic picture is attributed to left lower extremity infection which she has had before and what I suspect is the current source. Does not report that her says she was a DNR but I have not talked to the and unable to gather accurate history from the given her altered mental state. She is on significant number of medications that may be contributing to her altered mental state. unAble to gather review of systems 11/22 Patient was on Precedex drip last night for agitation and confusion concern for risk of pulling out lines. On drip this morning but does respond to voice but otherwise does not follow commands. Lactic acid improving, leukocytosis improving. Fever curve improving. Good urine output. Unable to gather review of systems given current mentation Constitutional Vitals: Vital Signs Temp Pulse Resp BP Pulse Ox 100.6 F H 66 27 H 120/51 97 11/23/19 07:01 11/23/19 07:01 11/23/19 07:01 11/23/19 07:01 11/23/19 07:01 Period Temp Pulse Resp BP Sys/Nichols Pulse Ox Last 24 Hr 100.5 F-104.0 F 66-102 16-41 109-228/31-128 90-100 Intake and Output 11/22/19 11/23/19 11/23/19 21:59 05:59 13:59 Intake Total 2350 429 Output Total 1803 580 Balance 547 -151 Weight 144.696 kg Intake & Output: Intake & Output 11/22/19 11/23/19 11/23/19 21:59 05:59 13:59 Intake Total 2350 429 Output Total 1803 580 Balance 547 -151 Weight 144.696 kg Intake: IV 2350 429 Sodium Chloride 0.9% 1,000 ml @ 2000 Wide Open IV BOLUS ONE Rx#: [id number] Precedex 400 Mcg/100 ml 106 Dextrose 400 Mcg In Premix 1 Bag @ 0.2 MCG/KG/HR 7.552 mls/ hr IV .[id number] [facility], [facility] Rx#: [id number] Lactated Ringers 1,000 ml @ 100 100 323 mls/hr IV .Q10H [facility], [facility]1983 Rx#: [id number] Vancomycin 1,000 mg In Sodium 250 Chloride 0.9% 250 ml @ 250 mls/ hr IV ONCE ONE Rx#:[id number] Output: Urine Catheter Amount 1800 580 # of times incontinent of urine 3 Other: Urine Appearance Clear Clear Urine Color Light Ashwini Light Ashwini Urine Odor Foul Stool Size Moderate Stool Color Brown Stool Consistency Soft Loose # of times incontinent of 1 Bowels Exam: General: confused, obese, no acute distress Eyes/N/T: EOMI, Head/Neck: neck supple, CV: RRR, 2/6 SM Pulm: Clear b/l, no wheezing/rhonchi/rales Abd: soft, nontender, +BS x4 Ext: no clubbing/cyanosis, b/l LE 2-3+ edema. LLE erythematous/warm tender to touch Neuro: Confusion, does partially open eyes to voice, does not follow commands but moves all extremities spontaneously skin: warm/dry OBJ DATA Labs CBC & Chem 7: 11/23/19 04:22 11/23/19 04:22 Labs: Abnormal Lab Results 11/23/19 11/23/19 11/23/19 04:22 04:22 04:22 WBC MPV Gran % Lymph % (Auto) Gran # Lymph # (Auto) ESR PT 16.6 H INR 1.3 H VBG Lactic Acid 2.6 H POC Total CO2 Creatinine 1.2 H Glucose 218 H POC Glucose Hemoglobin A1c Insulin Level Calcium 7.6 L POC WB Ioniz Calcium Phosphorus 1.6 L GGT 147 H Alkaline Phosphatase Lactate Dehydrogenase 301 H C-Reactive Protein Total Protein 5.5 L Albumin 2.2 L Globulin Albumin/Globulin Ratio 0.7 L Urine Protein Urine Glucose (UA) Urine Occult Blood Urine RBC Urine WBC Amorphous Crystals Urine Opiates Screen Ur Barbiturates Screen 11/22/19 11/22/19 11/22/19 20:52 20:43 19:10 WBC MPV Gran % Lymph % (Auto) Gran # Lymph # (Auto) ESR PT INR VBG Lactic Acid POC Total CO2 21 L Creatinine Glucose POC Glucose 254 H Hemoglobin A1c Insulin Level Calcium POC WB Ioniz Calcium 0.99 L Phosphorus GGT Alkaline Phosphatase Lactate Dehydrogenase C-Reactive Protein 13.9 H Total Protein Albumin Globulin Albumin/Globulin Ratio Urine Protein Urine Glucose (UA) Urine Occult Blood Urine RBC Urine WBC Amorphous Crystals Urine Opiates Screen Suspect positive A Ur Barbiturates Screen Suspect positive A 11/22/19 11/22/19 11/22/19 19:10 19:10 19:10 WBC MPV Gran % Lymph % (Auto) Gran # Lymph # (Auto) ESR 54 H PT 14.8 H INR VBG Lactic Acid POC Total CO2 Creatinine Glucose POC Glucose Hemoglobin A1c 7.7 H Insulin Level 63.4 H Calcium POC WB Ioniz Calcium Phosphorus GGT Alkaline Phosphatase Lactate Dehydrogenase C-Reactive Protein Total Protein Albumin Globulin Albumin/Globulin Ratio Urine Protein Urine Glucose (UA) Urine Occult Blood Urine RBC Urine WBC Amorphous Crystals Urine Opiates Screen Ur Barbiturates Screen 11/22/19 11/22/19 11/22/19 18:56 13:30 12:38 WBC MPV Gran % Lymph % (Auto) Gran # Lymph # (Auto) ESR PT INR VBG Lactic Acid 5.5 H* 4.3 H* POC Total CO2 Creatinine Glucose POC Glucose Hemoglobin A1c Insulin Level Calcium POC WB Ioniz Calcium Phosphorus GGT Alkaline Phosphatase Lactate Dehydrogenase C-Reactive Protein Total Protein Albumin Globulin Albumin/Globulin Ratio Urine Protein >=500 A Urine Glucose (UA) 50 A Urine Occult Blood >=1.0 A Urine RBC 176 H Urine WBC 5 H Amorphous Crystals Few A Urine Opiates Screen Ur Barbiturates Screen 11/22/19 11/22/19 11/22/19 10:47 10:47 10:47 WBC 27.6 H MPV 11.4 H Gran % 94.7 H Lymph % (Auto) 2.2 L Gran # 26.15 H Lymph # (Auto) 0.60 L ESR PT INR VBG Lactic Acid 2.9 H POC Total CO2 Creatinine 1.2 H Glucose 205 H POC Glucose Hemoglobin A1c Insulin Level Calcium POC WB Ioniz Calcium Phosphorus GGT Alkaline Phosphatase 118 H Lactate Dehydrogenase C-Reactive Protein Total Protein Albumin 2.9 L Globulin 4.0 H Albumin/Globulin Ratio 0.7 L Urine Protein Urine Glucose (UA) Urine Occult Blood Urine RBC Urine WBC Amorphous Crystals Urine Opiates Screen Ur Barbiturates Screen 11/22/19 10:43 WBC MPV Gran % Lymph % (Auto) Gran # Lymph # (Auto) ESR PT 14.9 H INR VBG Lactic Acid POC Total CO2 Creatinine Glucose POC Glucose Hemoglobin A1c Insulin Level Calcium POC WB Ioniz Calcium Phosphorus GGT Alkaline Phosphatase Lactate Dehydrogenase C-Reactive Protein Total Protein Albumin Globulin Albumin/Globulin Ratio Urine Protein Urine Glucose (UA) Urine Occult Blood Urine RBC Urine WBC Amorphous Crystals Urine Opiates Screen Ur Barbiturates Screen Meds: Medications Acetaminophen (Tylenol) 650 mg NV Q4-6HP PRN PRN Reason: PAIN/FEVER > 101 Bisacodyl (Dulcolax) 10 mg NV Q2-3DAYS PRN PRN Reason: Constipation Cefepime HCl (Maxipime) 2 gm IV Q12H [facility], [facility]; Protocol Last Admin: 11/22/19 19:34 Dose: 2 gm Documented by: Docusate Sodium (Colace) 100 mg PO BID [facility] Last Admin: 11/22/19 22:01 Dose: Not Given Documented by: Famotidine (Pepcid) 20 mg IV Q12 [facility] Last Admin: 11/23/19 01:22 Dose: Not Given Documented by: Hydralazine HCl (Apresoline) 0 mg IV Q2HP PRN PRN Reason: Hypertension Last Admin: 11/23/19 01:25 Dose: 20 mg Documented by: Lactated Ringer's (Lactated Ringers) 1,000 mls @ 100 mls/hr IV .Q10H [facility] Stop: 11/23/19 14:56 Last Infusion: 11/23/19 04:40 Dose: 100 mls/hr Documented by: Vancomycin HCl 1,500 mg/ (Sodium Chloride) 500 mls @ 333.3 mls/hr IV Q12H [facility], [facility] Clindamycin Phosphate 600 mg/ (Dextrose) 54 mls @ 100 mls/hr IV Q8H [facility], [facility]; Protocol Dexmedetomidine HCl 400 mcg/ (Premix) 100 mls @ 7.552 mls/hr IV .[id number] [facility], [facility]; Protocol Last Titration: 11/23/19 05:08 Dose: 0.5 mcg/kg/hr, 18.881 mls/hr Documented by: Acetaminophen (Ofirmev) 650 mg in 65 mls @ 130 mls/hr IV Q6HP PRN; Protocol PRN Reason: PAIN/FEVER > 101 Acyclovir Sodium 870 mg/ (Sodium Chloride) 150 mls @ 150 mls/hr IV Q8H [facility] Insulin Human Lispro (Humalog) 0 unit SQ ACHS [facility], [facility]; Protocol Last Admin: 11/23/19 01:19 Dose: Not Given Documented by: Lorazepam (Ativan) 0.5 mg IV Q4HP PRN PRN Reason: ANXIETY/SEDATION Last Admin: 11/22/19 23:00 Dose: 0.5 mg Documented by: Metoclopramide HCl (Reglan) 10 mg IV Q6HP PRN PRN Reason: nausea Morphine Sulfate (Morphine) 1 - 4 mg IV Q3HP PRN; Protocol PRN Reason: Per Pain Protocol Last Admin: 11/23/19 03:29 Dose: 2 mg Documented by: Ondansetron HCl (Zofran) 4 mg IV Q4-6HP PRN PRN Reason: Nausea And Vomiting Senna (Senokot) 1 tab PO HSP PRN PRN Reason: Constipation Sodium Chloride (Saline Flush) 10 ml IV Q8 [facility] Last Admin: 11/22/19 22:01 Dose: Not Given Documented by: Vancomycin HCl (Vancomycin Per Pharmacy) 1 [place] [facility] [place] Protocol A/P Narrative A/P Narrative: A: *Sepsis: 2/2 appears to be LLE cellulitis, -fever curve improving - *Lactic acidosis: 2/2 above -improving *Cellulitis LLE: -CT leg no gas/deep compartment abnormality, diffuse edema/cellulitis *Encephalopathy, acute: 2/2 above + polypharmacy *HTN urgency: improved *?FABIAN mild, on CKD III: *DM: On insulin at home -A1c 7.7 *PAF: On amiodarone and apixaban *Polypharmacy: *CKD III: *Depression/anxiety: *Morbid obesity: *PVD: On cilostazol *GERD: *Complex regional pain syndrome: Follows with Dr. Bernard *?home med Sinemet P: -IVF maintenance until PO intake -wean off sedation -Vanc/Cefepime, pending BC, MRSA screen -electrolyte replacement prn -f/u PCT -prn hydralazine, monitor bp closely; clarify if on home BP meds -basal and ssi -cont home amio -clarify home meds - -pt/ot -ppx:apixaban/home ppi Time Spent With Patient Time: Total time spent is greater than 50% in coordination of care (as documented) at patient's floor/unit and/or counseling patient:
[2019-11-23] MEDS ORDERED: POTASSIUM PHOSPHATE 40 MEQ in DEXTROSE 5% IN WATER 500 ML IV ONE (07:25)
[2019-11-23 07:42] LABS: Hematocrit 36.4 % (34.1-44.9); Hemoglobin 11.5 g/dL (11.2-15.7); Mean Cell Volume 88.6 fL (80.0-100.0); Mean Corpuscular HGB Conc 31.6 g/dL (31.0-36.0); Mean Platelet Volume 12.1 fL (7.4-10.4); Platelet Count 165 K/mcL (140-440); RBC 4.11 M/mcL (3.59-5.38); Red Cell Distribution Width 14.6 % (11.5-14.5); WBC 20.3 K/mcL (4.50-11.00)
[2019-11-23] MEDS: CEFEPIME 2 GM VIAL IV SCH ×2 (07:47→21:21)
[2019-11-23] MEDS ORDERED: CLINDAMYCIN 600 MG/4 ML VIAL ONE (08:08)
[2019-11-23 08:30] LABS: Band Neutrophils % 11 % (0-10); Lymphocytes % 1 % (15-49); Monocytes % (Manual) 2 % (1-12); Platelet Estimate NORMAL (NORMAL); RBC Morphology NORMAL (NORMAL); Segmented Neutrophils % 86 % (38-78)
[2019-11-23] MEDS: 0.9 % SODIUM CHLORIDE 10 ML SYRINGE IV SCH ×3 (08:33→21:15)
[2019-11-23] MEDS: CLINDAMYCIN 600 MG in DEXTROSE 5% IN WATER 50 ML IV SCH ×3 (08:58→22:14)
[2019-11-23] MEDS: DOCUSATE SODIUM 100 MG CAPSULE PO SCH ×2 (09:00→21:09)
[2019-11-23] MEDS ORDERED: VANCOMYCIN 1,500 MG in 0.9 % SODIUM CHLORIDE 500 ML IV SCH (10:00)
[2019-11-23] MEDS ORDERED: [UNRECOGNIZED DRUG - OTHER] IV ONE (10:41)
[2019-11-23] MEDS: ACETAMINOPHEN 650 MG/65 ML BOTTLE IV PRN (12:04)
[2019-11-23] MEDS: LORazepam 2 MG/ML VIAL IV PRN ×2 (12:43→20:35)
[2019-11-23] MEDS: LACTATED RINGERS 1,000 ML IV SCH (15:12)
[2019-11-24] MEDS: LORazepam 2 MG/ML VIAL IV PRN (01:59)
[2019-11-24] MEDS: DEXMEDETOMIDINE 400 MCG in PREMIX 1 BAG IV SCH ×3 (02:48→15:06)
[2019-11-24] MEDS: 0.9 % SODIUM CHLORIDE 10 ML SYRINGE IV SCH ×3 (05:34→22:00)
[2019-11-24] MEDS: CLINDAMYCIN 600 MG in DEXTROSE 5% IN WATER 50 ML IV SCH ×3 (05:34→21:11)
[2019-11-24 06:17] LABS: INR 1.1 (0.9-1.1); Prothrombin Time 14.6 sec (11.9-14.5)
[2019-11-24 06:24] LABS: Hematocrit 36.4 % (34.1-44.9); Hemoglobin 11.6 g/dL (11.2-15.7); Mean Cell Volume 87.5 fL (80.0-100.0); Mean Corpuscular HGB Conc 31.9 g/dL (31.0-36.0); Platelet Count 156 K/mcL (140-440); RBC 4.16 M/mcL (3.59-5.38); Red Cell Distribution Width 14.6 % (11.5-14.5)
[2019-11-24] MEDS: INSULIN LISPRO 1 UNIT/0.01 ML UNIT SQ SCH ×4 (07:15→21:08)
[2019-11-24 07:18] LABS: Lymphocytes % 7 % (15-49); Monocytes % (Manual) 2 % (1-12); Platelet Estimate NORMAL (NORMAL); RBC Morphology NORMAL (NORMAL); Segmented Neutrophils % 91 % (38-78)
[2019-11-24] MEDS ORDERED: NON FORMULARY MEDICATION 1 DOSE MISCELL (Insulin Aspart U-100 [Novolog Flexpen U-100 Insul SUB-Q PRN (07:30)
--- NOTE | 2019-11-24 07:42 | Internal Med Progress Note ---
SUBJECTIVE Subjective Patient information: Note initiated : 11/24/19 at 7:34 am Service Date, if different from initiated Date: [] Patient: Bobbi Murphy a 64 y/o F admitted on 11/22/19 for blood sugar. Chief Complaint: [] Interval history: Ms. Murphy is a 64 year old F Who presented to the ED after her was notified via monitor that her bloo d sugar was elevated and checking on her she was obtunded and facedown. She actually had nearly an identical presentation in September 2018 she was found obtunded with a fever. She was started on broad-spectrum Bactrim antibiotics including acyclovir and did have a elevated lactate with the increase in her repeat lactate as well Ogema. Lumbar puncture was ordered but no seen results that were ever done. Her septic picture is attributed to left lower extremity infection which she has had before and what I suspect is the current source. Does not report that her says she was a DNR but I have not talked to the and unable to gather accurate history from the given her altered mental state. She is on significant number of medications that may be contributing to her alt ered mental state. unAble to gather review of systems 11/22 Patient was on Precedex drip last night for agitation and confusion concern for risk of pulling out lines. On drip this morning but does respond to voice but otherwise does not follow commands. Lactic acid improving, leukocytosis improvi ng. Fever curve improving. Good urine output. 11/23 She was weaned down on the Precedex last night but then became agitated and started pulling at lines. Started back up in the starting to wean again today. This morning she is more alert cooperative and mentation is improving. Cytosis continues to improve, no bandemia today. Renal function good Review of Systems: denies headache/fever/chills/nausea/vomiting/chest or abdominal pain/cough/dyspnea/diarrhea. Otherwise see above. Constitutional Vitals: Vital Signs Temp Pulse Resp BP Pulse Ox 100.4 F H 66 24 H 150/66 96 11/24/19 07:01 11/24/19 07:01 11/24/19 07:01 11/24/19 07:01 11/24/19 07:01 Period Temp Pulse Resp BP Sys/Nichols Pulse Ox Last 24 Hr 100.3 F-101.4 F 58-81 11-28 116-163/44-72 94-98 Intake and Output 11/23/19 11/24/19 11/24/19 21:59 05:59 13:59 Intake Total 372.0909 1154 Output Total 495 600 100 Balance -122.9091 554 -100 Weight 145.422 kg Intake & Output: Intake & Output 11/23/19 11/24/19 11/24/19 21:59 05:59 13:59 Intake Total 372.0909 1154 Output Total 495 600 100 Balance -122.9091 554 -100 Weight 145.422 kg Intake: IV 372.0909 1154 Cleocin 600 mg In Dextrose 5% 54 54 in Water 50 ml @ 100 mls/hr IV Q8H [facility] Rx#:[id number] Precedex 400 Mcg/100 ml 177 120 Dextrose 400 Mcg In Premix 1 Bag @ 0.2 MCG/KG/HR 7.552 mls/ hr IV .[id number] [facility] Rx#: [id number] Lactated Ringers 1,000 ml @ 100 82 980 mls/hr IV .Q10H [facility] Rx#: [id number] Potassium Phosphate 40 Meq In 59.0909 Dextrose 5% in Water 500 ml @ 127.273 mls/hr IV ONCE ONE Rx#: [id number] Output: Urine Catheter Amount 375 600 100 Void Amount 120 Other: Urine Appearance Clear Clear Clear Urine Color Light Ashwini Dark Ashwini Light Ashwini Urine Odor Normal Exam: General: still has some confusion but improved, calm on my exam, obese, no acute distress Eyes/N/T: EOMI, Head/Neck: neck supple, CV: RRR, 2/6 SM Pulm: Clear b/l, no wheezing/rhonchi/rales Abd: soft, nontender, +BS x4 Ext: no clubbing/cyanosis, b/l LE 2-3+ edema. LLE erythematous/warm tender to touch Neuro: Confusion improving, follows commands, extremities spontaneously, answers most questions today skin: warm/dry OBJ DATA Labs CBC & Chem 7: 11/24/19 05:00 11/24/19 05:00 Labs: Abnormal Lab Results 11/24/19 11/24/19 11/23/19 05:00 05:00 04:22 WBC 13.0 H 20.3 H RDW 14.6 H 14.6 H MPV 12.0 H 12.1 H Gran % Lymph % (Auto) Gran # Lymph # (Auto) Seg Neutrophils % 91 H 86 H Band Neutrophils % 11 H Lymphocytes % 7 L 1 L ESR PT 14.6 H INR VBG Lactic Acid POC Total CO2 Creatinine Glucose POC Glucose Hemoglobin A1c Insulin Level Calcium POC WB Ioniz Calcium Phosphorus GGT Alkaline Phosphatase Lactate Dehydrogenase C-Reactive Protein Total Protein Albumin Globulin Albumin/Globulin Ratio Prolactin Urine Protein Urine Glucose (UA) Urine Occult Blood Urine RBC Urine WBC Amorphous Crystals Urine Opiates Screen Ur Barbiturates Screen 11/23/19 11/23/19 11/23/19 04:22 04:22 04:22 WBC RDW MPV Gran % Lymph % (Auto) Gran # Lymph # (Auto) Seg Neutrophils % Band Neutrophils % Lymphocytes % ESR PT INR VBG Lactic Acid 2.6 H POC Total CO2 Creatinine 1.2 H Glucose 218 H POC Glucose Hemoglobin A1c Insulin Level Calcium 7.6 L POC WB Ioniz Calcium Phosphorus 1.6 L GGT 147 H Alkaline Phosphatase Lactate Dehydrogenase 301 H C-Reactive Protein Total Protein 5.5 L Albumin 2.2 L Globulin Albumin/Globulin Ratio 0.7 L Prolactin 23.5 H Urine Protein Urine Glucose (UA) Urine Occult Blood Urine RBC Urine WBC Amorphous Crystals Urine Opiates Screen Ur Barbiturates Screen 11/23/19 11/22/19 11/22/19 04:22 20:52 20:43 WBC RDW MPV Gran % Lymph % (Auto) Gran # Lymph # (Auto) Seg Neutrophils % Band Neutrophils % Lymphocytes % ESR PT 16.6 H INR 1.3 H VBG Lactic Acid POC Total CO2 21 L Creatinine Glucose POC Glucose 254 H Hemoglobin A1c Insulin Level Calcium POC WB Ioniz Calcium 0.99 L Phosphorus GGT Alkaline Phosphatase Lactate Dehydrogenase C-Reactive Protein Total Protein Albumin Globulin Albumin/Globulin Ratio Prolactin Urine Protein Urine Glucose (UA) Urine Occult Blood Urine RBC Urine WBC Amorphous Crystals Urine Opiates Screen Suspect positive A Ur Barbiturates Screen Suspect positive A 11/22/19 11/22/19 11/22/19 19:10 19:10 19:10 WBC RDW MPV Gran % Lymph % (Auto) Gran # Lymph # (Auto) Seg Neutrophils % Band Neutrophils % Lymphocytes % ESR 54 H PT INR VBG Lactic Acid POC Total CO2 Creatinine Glucose POC Glucose Hemoglobin A1c 7.7 H Insulin Level 63.4 H Calcium POC WB Ioniz Calcium Phosphorus GGT Alkaline Phosphatase Lactate Dehydrogenase C-Reactive Protein 13.9 H Total Protein Albumin Globulin Albumin/Globulin Ratio Prolactin Urine Protein Urine Glucose (UA) Urine Occult Blood Urine RBC Urine WBC Amorphous Crystals Urine Opiates Screen Ur Barbiturates Screen 11/22/19 11/22/19 11/22/19 19:10 18:56 13:30 WBC RDW MPV Gran % Lymph % (Auto) Gran # Lymph # (Auto) Seg Neutrophils % Band Neutrophils % Lymphocytes % ESR PT 14.8 H INR VBG Lactic Acid 5.5 H* POC Total CO2 Creatinine Glucose POC Glucose Hemoglobin A1c Insulin Level Calcium POC WB Ioniz Calcium Phosphorus GGT Alkaline Phosphatase Lactate Dehydrogenase C-Reactive Protein Total Protein Albumin Globulin Albumin/Globulin Ratio Prolactin Urine Protein >=500 A Urine Glucose (UA) 50 A Urine Occult Blood >=1.0 A Urine RBC 176 H Urine WBC 5 H Amorphous Crystals Few A Urine Opiates Screen Ur Barbiturates Screen 11/22/19 11/22/19 11/22/19 12:38 10:47 10:47 WBC 27.6 H RDW MPV 11.4 H Gran % 94.7 H Lymph % (Auto) 2.2 L Gran # 26.15 H Lymph # (Auto) 0.60 L Seg Neutrophils % Band Neutrophils % Lymphocytes % ESR PT INR VBG Lactic Acid 4.3 H* POC Total CO2 Creatinine 1.2 H Glucose 205 H POC Glucose Hemoglobin A1c Insulin Level Calcium POC WB Ioniz Calcium Phosphorus GGT Alkaline Phosphatase 118 H Lactate Dehydrogenase C-Reactive Protein Total Protein Albumin 2.9 L Globulin 4.0 H Albumin/Globulin Ratio 0.7 L Prolactin Urine Protein Urine Glucose (UA) Urine Occult Blood Urine RBC Urine WBC Amorphous Crystals Urine Opiates Screen Ur Barbiturates Screen 11/22/19 11/22/19 10:47 10:43 WBC RDW MPV Gran % Lymph % (Auto) Gran # Lymph # (Auto) Seg Neutrophils % Band Neutrophils % Lymphocytes % ESR PT 14.9 H INR VBG Lactic Acid 2.9 H POC Total CO2 Creatinine Glucose POC Glucose Hemoglobin A1c Insulin Level Calcium POC WB Ioniz Calcium Phosphorus GGT Alkaline Phosphatase Lactate Dehydrogenase C-Reactive Protein Total Protein Albumin Globulin Albumin/Globulin Ratio Prolactin Urine Protein Urine Glucose (UA) Urine Occult Blood Urine RBC Urine WBC Amorphous Crystals Urine Opiates Screen Ur Barbiturates Screen Meds: Medications Acetaminophen (Tylenol) 650 mg PA Q4-6HP PRN PRN Reason: PAIN/FEVER > 101 Hydrocodone Bitart/Acetaminophen ([place] 7.5/325mg) 1 tab PO TID PRN; Protocol PRN Reason: Pain Amiodarone HCl (Cordarone) 200 mg PO DAILY [facility] Apixaban (Eliquis) 5 mg PO BID [facility] Aspirin (Ecotrin) 81 mg PO DAILY [facility] Bisacodyl (Dulcolax) 10 mg PA Q2-3DAYS PRN PRN Reason: Constipation Carbidopa/Levodopa (Sinemet 10/100) 1 tab PO BID [facility] Cefepime HCl (Maxipime) 2 gm IV Q12H [facility]; Protocol Last Admin: 11/23/19 21:21 Dose: 2 gm Documented by: Diagnostic Test (Pha) (Accu-Chek) 1 each FS ACHS [facility] Last Admin: 11/24/19 07:11 Dose: 1 each Documented by: Docusate Sodium (Colace) 100 mg PO BID [facility] Last Admin: 11/23/19 21:09 Dose: Not Given Documented by: Famotidine (Pepcid) 20 mg IV Q12 [facility] Last Admin: 11/23/19 21:21 Dose: 20 mg Documented by: Hydralazine HCl (Apresoline) 0 mg IV Q2HP PRN PRN Reason: Hypertension Last Admin: 11/23/19 01:25 Dose: 20 mg Documented by: Clindamycin Phosphate 600 mg/ (Dextrose) 54 mls @ 100 mls/hr IV Q8H [facility]; Protocol Last Admin: 11/24/19 05:34 Dose: 100 mls/hr Documented by: Dexmedetomidine HCl 400 mcg/ (Premix) 100 mls @ 7.552 mls/hr IV .[id number] [facility]; Protocol Last Titration: 11/24/19 04:35 Dose: 0.5 mcg/kg/hr, 18.881 mls/hr Documented by: Acetaminophen (Ofirmev) 650 mg in 65 mls @ 130 mls/hr IV Q6HP PRN; Protocol PRN Reason: PAIN/FEVER > 101 Last Infusion: 11/23/19 13:24 Dose: Infused Documented by: Insulin Human Lispro (Humalog) 0 unit SQ ACHS [facility]; Protocol Last Admin: 11/24/19 07:15 Dose: 6 unit Documented by: Lorazepam (Ativan) 0.5 mg IV Q4HP PRN PRN Reason: ANXIETY/SEDATION Last Admin: 11/24/19 01:59 Dose: 0.5 mg Documented by: Metoclopramide HCl (Reglan) 10 mg IV Q6HP PRN PRN Reason: nausea Morphine Sulfate (Morphine) 1 - 4 mg IV Q3HP PRN; Protocol PRN Reason: Per Pain Protocol Last Admin: 11/24/19 04:42 Dose: 4 mg Documented by: Morphine Sulfate (Ms Contin) 15 mg PO BID [facility]; Protocol Non-Formulary Medication (Cilostazol [Pletal]) 200 mg PO BID [facility] Non-Formulary Medication (Insulin Glargine U-300 Conc [Toujeo Solostar U-300 Insulin]) 34 unit SQ HS [facility] Non-Formulary Medication (Metoprolol Tartrate) 100 mg PO DAILY [facility] Non-Formulary Medication (Insulin Aspart U-100 [Novolog Flexpen U-100 Insulin]) 1 unit SUB-Q PRN PRN PRN Reason: Hyperglycemia Ondansetron HCl (Zofran) 4 mg IV Q4-6HP PRN PRN Reason: Nausea And Vomiting Pregabalin (Lyrica) 150 mg PO TID [facility] Senna (Senokot) 1 tab PO HSP PRN PRN Reason: Constipation Sodium Chloride (Saline Flush) 10 ml IV Q8 [facility] Last Admin: 11/24/19 05:34 Dose: 10 ml Documented by: Venlafaxine HCl (Effexor) 75 mg PO BID [facility] A/P Narrative A/P Narrative: A: *Sepsis: 2/2 appears to be LLE cellulitis, -continued fevers but lower than initially -leukocytosis improving *Lactic acidosis: 2/2 above -improving *Cellulitis LLE: -CT leg no gas/deep compartment abnormality, diffuse edema/cellulitis *Encephalopathy, acute: 2/2 above + polypharmacy -improving *HTN urgency: improved, home meds lisinopril/lopressor *?FABIAN mild, on CKD III: *DM: On insulin at home -A1c 7.7 *PAF: On amiodarone and apixaban *Polypharmacy: *CKD III: *Depression/anxiety: *Morbid obesity: *PVD: On cilostazol/ASA *GERD: *Complex regional pain syndrome: Follows with Dr. Bernard *?home med Sinemet P: -IVF maintenance until PO intake -wean off sedation -Vanc(d/c )/Cefepime, d/c clinda after 48hrs, pending BC, MRSA screen neg and no +BC will d/c vanco -electrolyte replacement prn -f/u PCT -prn hydralazine, monitor bp closely; restart home BP meds -basal and ssi -cont home amio -cont ACEI/Lopressor, - -pt/ot -ppx:apixaban/home ppi DNR Time Spent With Patient Time: Total time spent is greater than 50% in coordination of care (as documented) at patient's floor/unit and/or counseling patient:
[2019-11-24 08:02] LABS: ALT/SGPT 12 U/l (0-40); AST/SGOT 18 U/l (0-37); Albumin 2.2 gm/dL (3.2-5.2); Albumin/Globulin Ratio 0.6 (1.0-2.3); Alkaline Phosphatase 81 U/L (39-117); Bilirubin,Direct < 0.2 mg/dL (0.0-0.3); Bilirubin,Total 0.3 mg/dL (0.0-1.0); Blood Urea Nitrogen 19 mg/dl (8-23); Calcium 7.7 mg/dl (8.6-10.4); Carbon Dioxide 25 mmol/L (22-30); Chloride 106 mmol/L (96-108); Globulin 3.6 gm/dL (2.2-3.7); Glomerular Filtration Rate 53; Glucose 226 mg/dL (70-105); Lactate Dehydrogenase 239 U/L (94-250); Triglycerides 181 mg/dl (<150); Uric Acid 5.2 mg/dL (2.5-8.0)
[2019-11-24 08:03] LABS: C-Reactive Protein 28.1 mg/dl (0.0-0.8); Phosphorous 2.5 mg/dL (2.7-4.5)
[2019-11-24] MEDS: morphine 15 MG TAB.SR.12H PO SCH ×2 (08:33→21:22)
[2019-11-24] MEDS: AMIODARONE HCL 200 MG TABLET PO SCH (08:34)
[2019-11-24] MEDS: APIXABAN 5 MG TABLET PO SCH ×2 (08:49→21:22)
[2019-11-24] MEDS: CARBIDOPA/LEVODOPA 10/100 TABLET PO SCH ×2 (08:49→21:22)
[2019-11-24] MEDS: PREGABALIN 150 MG CAPSULE PO SCH ×3 (08:49→21:22)
[2019-11-24] MEDS: CILOSTAZOL 100 MG TABLET PO SCH ×2 (08:49→21:22)
[2019-11-24] MEDS: ASPIRIN 81 MG TAB.CHEW PO SCH (08:50)
[2019-11-24] MEDS: DOCUSATE SODIUM 100 MG CAPSULE PO SCH ×2 (08:58→21:07)
[2019-11-24] MEDS ORDERED: METOPROLOL TARTRATE 50 MG TABLET PO SCH (09:00)
[2019-11-24] MEDS ORDERED: LISINOPRIL 20 MG TABLET PO SCH (09:00)
[2019-11-24] MEDS: CEFEPIME 2 GM VIAL IV SCH ×2 (09:01→21:27)
[2019-11-24] MEDS: FAMOTIDINE/PF 20 MG/2 ML VIAL IV SCH ×2 (09:06→21:12)
[2019-11-24] MEDS: LACTOBACILLUS 1 CAPSULE PO SCH ×2 (12:49→21:21)
[2019-11-24] MEDS: VENLAFAXINE 150 MG CAP.XL.24H PO SCH (12:50)
[2019-11-24] MEDS: ACETAMINOPHEN 650 MG/65 ML BOTTLE IV PRN (20:53)
[2019-11-24] MEDS ORDERED: INSULIN GLARGINE, HUMAN 1 UNIT/0.01 ML SQ SCH (21:00)
[2019-11-25] MEDS: HYDROCODONE/APAP 7.5/325MG TABLET PO PRN ×2 (00:01→11:13)
[2019-11-25] MEDS: LOPERAMIDE 2 MG CAPSULE PO PRN ×2 (00:01→09:52)
[2019-11-25] MEDS ORDERED: LOPERAMIDE 2 MG CAPSULE PO ONE (00:01)
[2019-11-25] MEDS: CLINDAMYCIN 600 MG in DEXTROSE 5% IN WATER 50 ML IV SCH (05:32)
[2019-11-25] MEDS: DEXMEDETOMIDINE 400 MCG in PREMIX 1 BAG IV SCH (06:37)
[2019-11-25] MEDS: 0.9 % SODIUM CHLORIDE 10 ML SYRINGE IV SCH ×3 (06:40→21:50)
--- NOTE | 2019-11-25 07:43 | Internal Med Progress Note ---
SUBJECTIVE Subjective Patient information: Note initiated : 11/25/19 at 7:35 am Service Date, if different from initiated Date: [] Patient: Bobbi Murphy a 64 y/o F admitted on 11/22/19 for blood sugar. Chief Complaint: [] Interval history: Narrative: Ms. Murphy is a 64 year old F Who presented to the ED after her was notified via monitor that her blood sugar was elevated and checking on her she was obtunded and facedown. She actually had nearly an identical presentation in September 2018 she was found obtunded with a fever. She was started on broad-spectrum Bactrim antibiotics including acyclovir and did have a elevated lactate with the increase in her repeat lactate as well [place]. Lumbar puncture was ordered but no seen resu lts that were ever done. Her septic picture is attributed to left lower extremity infection which she has had before and what I suspect is the current source. Does not report that her says she was a DNR but I have not talked to the and unable to gather accurate history from the given her altered mental state. She is on significant number of medications that may be contributing to her altered mental state. unAble to gather review of systems 11/22 Patient was on Precedex drip last night for agitation and confusion concern for risk of pulling out lines. On drip this morning but does respond to voice but otherwise does not follow commands. Lactic acid improving, leukocytosis improving. Fever curve improving. Good urine output. 11/23 She was weaned down on the Precedex last night but then became agitated and started pulling at lines. Started back up in the starting to wean again today. This morning she is more alert cooperative and mentation is improving. Cytosis continues to improve, no bandemia today. Renal function good *Patient was supposed to see Dr. Huber but has not yet. Patient was started on Sinemet empirically has it was difficult to get patient in to see the neurologist. 11/24 Feeling better today. Sitting up eating breakfast. Mentation resolved. Did have diarrhea last night C. difficile negative. Review of Systems: denies headache/fever/chills/nausea/vomiting/chest or abdominal pain/cough/dyspnea. Otherwise see above. Constitutional Vitals: Vital Signs Temp Pulse Resp BP Pulse Ox 97.0 F 55 L 11 L 127/57 97 11/25/19 07:01 11/25/19 07:01 11/25/19 07:01 11/25/19 07:01 11/25/19 07:01 Period Temp Pulse Resp BP Sys/Nichols Pulse Ox Last 24 Hr 96.8 F-100.4 F 50-68 9-24 76-158/26-78 91-99 Intake and Output 11/24/19 11/25/19 11/25/19 21:59 05:59 13:59 Intake Total 64 119 54 Output Total 231 186 110 Balance -167 -67 -56 Weight 146.193 kg Intake & Output: Intake & Output 11/24/19 11/25/19 11/25/19 21:59 05:59 13:59 Intake Total 64 119 54 Output Total 231 186 110 Balance -167 -67 -56 Weight 146.193 kg Intake: IV 64 119 54 Cleocin 600 mg In Dextrose 5% 54 54 54 in Water 50 ml @ 100 mls/hr IV Q8H AMAURY Rx#:[id number] Precedex 400 Mcg/100 ml 10 Dextrose 400 Mcg In Premix 1 Bag @ 0.2 MCG/KG/HR 7.552 mls/ hr IV .[id number] AMAURY Rx#: [id number] Output: Urine Catheter Amount 231 186 110 Other: Meal Dinner Percent of Meal Consumed Refused Feeding Ability Assist with Tray Set Up Urine Appearance Clear Clear Clear Uretheral ([place]) Clear Clear Urine Color Bright Yellow Light Ashwini Straw Uretheral ([place]) Light Ashwini Light Ashwini Urine Odor Normal Normal Stool Size Moderate Copious Stool Color Brown Brown Yellow Yellow Stool Consistency Watery Watery # Bowel Movements 1 # of times incontinent of 1 2 Bowels Exam: General: Alert and awake , obese, no acute distress Eyes/N/T: EOMI, Head/Neck: neck supple, CV: RRR, 2/6 SM Pulm: Clear b/l, no wheezing/rhonchi/rales Abd: soft, nontender, +BS x4 Ext: no clubbing/cyanosis, b/l LE 2+ edema. LLE erythematous/warm tender to touch -improving Neuro: Alert and awake no focal deficits, her mentation cleared, follows commands, skin: warm/dry OBJ DATA Labs CBC & Chem 7: 11/24/19 05:00 11/24/19 05:00 Labs: Abnormal Lab Results 11/24/19 11/24/19 11/24/19 05:00 05:00 05:00 WBC 13.0 H RDW 14.6 H MPV 12.0 H Gran % Lymph % (Auto) Gran # Lymph # (Auto) Seg Neutrophils % 91 H Band Neutrophils % Lymphocytes % 7 L ESR PT 14.6 H INR VBG Lactic Acid POC Total CO2 Creatinine Glucose 226 H POC Glucose Hemoglobin A1c Insulin Level Calcium 7.7 L POC WB Ioniz Calcium Phosphorus 2.5 L GGT 131 H Alkaline Phosphatase Lactate Dehydrogenase C-Reactive Protein 28.1 H Total Protein 5.8 L Albumin 2.2 L Globulin Albumin/Globulin Ratio 0.6 L Triglycerides 181 H Prolactin Urine Protein Urine Glucose (UA) Urine Occult Blood Urine RBC Urine WBC Amorphous Crystals Urine Opiates Screen Ur Barbiturates Screen 11/23/19 11/23/19 11/23/19 04:22 04:22 04:22 WBC 20.3 H RDW 14.6 H MPV 12.1 H Gran % Lymph % (Auto) Gran # Lymph # (Auto) Seg Neutrophils % 86 H Band Neutrophils % 11 H Lymphocytes % 1 L ESR PT INR VBG Lactic Acid 2.6 H POC Total CO2 Creatinine Glucose POC Glucose Hemoglobin A1c Insulin Level Calcium POC WB Ioniz Calcium Phosphorus GGT Alkaline Phosphatase Lactate Dehydrogenase C-Reactive Protein Total Protein Albumin Globulin Albumin/Globulin Ratio Triglycerides Prolactin 23.5 H Urine Protein Urine Glucose (UA) Urine Occult Blood Urine RBC Urine WBC Amorphous Crystals Urine Opiates Screen Ur Barbiturates Screen 11/23/19 11/23/19 11/22/19 04:22 04:22 20:52 WBC RDW MPV Gran % Lymph % (Auto) Gran # Lymph # (Auto) Seg Neutrophils % Band Neutrophils % Lymphocytes % ESR PT 16.6 H INR 1.3 H VBG Lactic Acid POC Total CO2 Creatinine 1.2 H Glucose 218 H POC Glucose Hemoglobin A1c Insulin Level Calcium 7.6 L POC WB Ioniz Calcium Phosphorus 1.6 L GGT 147 H Alkaline Phosphatase Lactate Dehydrogenase 301 H C-Reactive Protein Total Protein 5.5 L Albumin 2.2 L Globulin Albumin/Globulin Ratio 0.7 L Triglycerides Prolactin Urine Protein Urine Glucose (UA) Urine Occult Blood Urine RBC Urine WBC Amorphous Crystals Urine Opiates Screen Suspect positive A Ur Barbiturates Screen Suspect positive A 11/22/19 11/22/19 11/22/19 20:43 19:10 19:10 WBC RDW MPV Gran % Lymph % (Auto) Gran # Lymph # (Auto) Seg Neutrophils % Band Neutrophils % Lymphocytes % ESR 54 H PT INR VBG Lactic Acid POC Total CO2 21 L Creatinine Glucose POC Glucose 254 H Hemoglobin A1c Insulin Level Calcium POC WB Ioniz Calcium 0.99 L Phosphorus GGT Alkaline Phosphatase Lactate Dehydrogenase C-Reactive Protein 13.9 H Total Protein Albumin Globulin Albumin/Globulin Ratio Triglycerides Prolactin Urine Protein Urine Glucose (UA) Urine Occult Blood Urine RBC Urine WBC Amorphous Crystals Urine Opiates Screen Ur Barbiturates Screen 11/22/19 11/22/19 11/22/19 19:10 19:10 18:56 WBC RDW MPV Gran % Lymph % (Auto) Gran # Lymph # (Auto) Seg Neutrophils % Band Neutrophils % Lymphocytes % ESR PT 14.8 H INR VBG Lactic Acid 5.5 H* POC Total CO2 Creatinine Glucose POC Glucose Hemoglobin A1c 7.7 H Insulin Level 63.4 H Calcium POC WB Ioniz Calcium Phosphorus GGT Alkaline Phosphatase Lactate Dehydrogenase C-Reactive Protein Total Protein Albumin Globulin Albumin/Globulin Ratio Triglycerides Prolactin Urine Protein Urine Glucose (UA) Urine Occult Blood Urine RBC Urine WBC Amorphous Crystals Urine Opiates Screen Ur Barbiturates Screen 11/22/19 11/22/19 11/22/19 13:30 12:38 10:47 WBC RDW MPV Gran % Lymph % (Auto) Gran # Lymph # (Auto) Seg Neutrophils % Band Neutrophils % Lymphocytes % ESR PT INR VBG Lactic Acid 4.3 H* POC Total CO2 Creatinine 1.2 H Glucose 205 H POC Glucose Hemoglobin A1c Insulin Level Calcium POC WB Ioniz Calcium Phosphorus GGT Alkaline Phosphatase 118 H Lactate Dehydrogenase C-Reactive Protein Total Protein Albumin 2.9 L Globulin 4.0 H Albumin/Globulin Ratio 0.7 L Triglycerides Prolactin Urine Protein >=500 A Urine Glucose (UA) 50 A Urine Occult Blood >=1.0 A Urine RBC 176 H Urine WBC 5 H Amorphous Crystals Few A Urine Opiates Screen Ur Barbiturates Screen 11/22/19 11/22/19 11/22/19 10:47 10:47 10:43 WBC 27.6 H RDW MPV 11.4 H Gran % 94.7 H Lymph % (Auto) 2.2 L Gran # 26.15 H Lymph # (Auto) 0.60 L Seg Neutrophils % Band Neutrophils % Lymphocytes % ESR PT 14.9 H INR VBG Lactic Acid 2.9 H POC Total CO2 Creatinine Glucose POC Glucose Hemoglobin A1c Insulin Level Calcium POC WB Ioniz Calcium Phosphorus GGT Alkaline Phosphatase Lactate Dehydrogenase C-Reactive Protein Total Protein Albumin Globulin Albumin/Globulin Ratio Triglycerides Prolactin Urine Protein Urine Glucose (UA) Urine Occult Blood Urine RBC Urine WBC Amorphous Crystals Urine Opiates Screen Ur Barbiturates Screen Meds: Medications Acetaminophen (Tylenol) 650 mg MI Q4-6HP PRN PRN Reason: PAIN/FEVER > 101 Hydrocodone Bitart/Acetaminophen ([place] 7.5/325mg) 1 tab PO TIDP PRN; Protocol PRN Reason: Pain Last Admin: 11/25/19 00:01 Dose: 1 tab Documented by: [facility] Last Admin: 11/24/19 08:34 Dose: 200 mg Documented by: Apixaban (Eliquis) 5 mg PO BID PENDING SALE TO [facility] Last Admin: 11/24/19 21:22 Dose: 5 mg Documented by: Aspirin (Aspirin) 81 mg PO DAILY PENDING SALE TO [facility] Last Admin: 11/24/19 08:50 Dose: 81 mg Documented by: Bisacodyl (Dulcolax) 10 mg MI Q2-3DAYS PRN PRN Reason: Constipation Carbidopa/Levodopa (Sinemet 10/100) 1 tab PO BID PENDING SALE TO [facility] Last Admin: 11/24/19 21:22 Dose: 1 tab Documented by: Cefepime HCl (Maxipime) 2 gm IV Q12H PENDING SALE TO [facility]; Protocol Last Admin: 11/24/19 21:27 Dose: 2 gm Documented by: Cilostazol (Pletal) 200 mg PO BID PENDING SALE TO [facility] Last Admin: 11/24/19 21:22 Dose: 200 mg Documented by: Diagnostic Test (Pha) (Accu-Chek) 1 each FS ACHS PENDING SALE TO [facility] Last Admin: 11/25/19 05:04 Dose: 1 each Documented by: Docusate Sodium (Colace) 100 mg PO BID PENDING SALE TO [facility] Last Admin: 11/24/19 21:07 Dose: Not Given Documented by: Famotidine (Pepcid) 20 mg IV Q12 PEND[facility] SALE TO [facility] Last Admin: 11/24/19 21:12 Dose: 20 mg Documented by: Hydralazine HCl (Apresoline) 0 mg IV Q2HP PRN PRN Reason: Hypertension Last Admin: 11/23/19 01:25 Dose: 20 mg Documented by: Clindamycin Phosphate 600 mg/ (Dextrose) 54 mls @ 100 mls/hr IV Q8H PENDING SALE TO [facility]; Pro tocol Last Infusion: 11/25/19 06:38 Dose: Infused Documented by: Dexmedetomidine HCl 400 mcg/ (Premix) 100 mls @ 7.552 mls/hr IV .[id number] PENDING SALE TO [facility]; Protocol Last Admin: 11/25/19 06:37 Dose: Not Given Documented by: Acetaminophen (Ofirmev) 650 mg in 65 mls @ 130 mls/hr IV Q6HP PRN; Protocol PRN Reason: PAIN/FEVER > 101 Last Infusion: 11/25/19 00:54 Dose: Infused Documented by: Insulin Glargine (Lantus) 34 unit SQ HS PENDING SALE TO [facility] Last Admin: 11/24/19 21:26 Dose: 34 units Documented by: Insulin Human Lispro (Humalog) 0 unit SQ ACHS PENDING SALE TO [facility]; Protocol Last Admin: 11/24/19 21:08 Dose: Not Given Documented by: Lactobacillus Rhamnosus (Culturelle) 1 cap PO BID PENDING SALE TO [facility] Last Admin: 11/24/19 21:21 Dose: 1 cap Documented by: Lisinopril (Zestril) 20 mg PO DAILY PENDING SALE TO [facility] Last Admin: 11/24/19 09:06 Dose: 20 mg Documented by: Loperamide HCl (Imodium) 2 mg PO PRN PRN PRN Reason: Diarrhea Last Admin: 11/25/19 00:01 Dose: 2 mg Documented by: Lorazepam (Ativan) 0.5 mg IV Q4HP PRN PRN Reason: ANXIETY/SEDATION Last Admin: 11/24/19 01:59 Dose: 0.5 mg Documented by: Metoclopramide HCl (Reglan) 10 mg IV Q6HP PRN PRN Reason: nausea Metoprolol Succinate (Toprol Xl) 100 mg PO DAILY PENDING SALE TO [facility] Morphine Sulfate (Morphine) 1 - 4 mg IV Q3HP PRN; Protocol PRN Reason: Per Pain Protocol Last Admin: 11/25/19 05:31 Dose: 2 mg Documented by: Morphine Sulfate (Ms Contin) 15 mg PO BID PENDING SALE TO [facility]; Protocol Last Admin: 11/24/19 21:22 Dose: 15 mg Documented by: Ondansetron HCl (Zofran) 4 mg IV Q4-6HP PRN PRN Reason: Nausea And Vomiting Last Admin: 11/25/19 05:32 Dose: 4 mg Documented by: Pregabalin (Lyrica) 150 mg PO TID PENDING SALE TO [facility] Last Admin: 11/24/19 21:22 Dose: 150 mg Documented by: Rakan (Senokot) 1 tab PO HSP PRN PRN Reason: Constipation Sodium Chloride (Saline Flush) 10 ml IV Q8 PENDING SALE TO [facility] Last Admin: 11/25/19 06:40 Dose: 10 ml Documented by: Venlafaxine HCl (Effexor Xr) 150 mg PO DAILY PENDING SALE TO [facility] Last Admin: 11/24/19 12:50 Dose: 150 mg Documented by: A/P Narrative A/P Narrative: Narrative: A: *Sepsis: 2/2 LLE cellulitis -afebrile now, leukocytosis improving -BC neg *Lactic acidosis: 2/2 above -improvED *Cellulitis LLE: -CT leg no gas/deep compartment abnormality, diffuse edema/cellulitis *Encephalopathy, acute: 2/2 above + polypharmacy -resolved *HTN urgency: improved, home meds lisinopril/lopressor *?FABIAN mild, on CKD III: *DM: On insulin at home -A1c 7.7 *PAF: On amiodarone and apixaban *Polypharmacy: *CKD III: *Depression/anxiety: *Morbid obesity: *PVD: On cilostazol/ASA *GERD: *Complex regional pain syndrome: Follows with Dr. Bernard *on sinemet for tremors: started outpt empirically until seen by neurology P: -Cefepime, d/c clinda, pending final BC -electrolyte replacement prn -f/u PCT -prn hydralazine; bp now low overnight, hold lisinopril, cont toprol -cont home amio --basal and ssi -pt/ot -ppx:apixaban/home ppi DNR Time Spent With Patient Time: Total time spent is greater than 50% in coordination of care (as documented) at patient's floor/unit and/or counseling patient:
--- NOTE | 2019-11-25 07:48 | Internal Med Progress Note ---
SUBJECTIVE Subjective Patient information: Note initiated : 11/25/19 at 7:43 am Service Date, if different from initiated Date: [] Patient: Bobbi Murphy 64 y/o F admitted on 11/22/19 for blood sugar. Chief Complaint: [] Interval history: Narrative: Ms. Collins is a 89 year old F Presents from [facility] living [facility] for weakness and fall with bruising around her right breast. Fell at some point, I believe off a recliner, falling onto right chest area. She is tachycardic and hypotensive, she was afebrile. She did have leukocytosi s. Her INR was 5. And her creatinine was elevated above baseline. She appeared dry and was given a little fluid initially cautiously given her history of heart failure however blood pressure continued to decline and she was much up on vasopressors. Repeat hemoglobin showed a 7.9 to a 6.7 drop. She is given 3 units of blood and imaging was obtained which showed a large hematoma with concern for possible abscess. She was treated for infection with broad-spectrum antibiotics. The question was is a septic or hemorrhagic shock, appears to be more of hemorrhagic as radiologist was able to draw out blood but no purulence, however this does not mean the hematoma is not infected. He had 3 L of IV fluid in ED prior to Levophed starting. He was given vitamin K and fresh frozen plasma. Lactate went from 7.4 to 3.2. Procalcitonin was unremarkable. Circumstances were discussed with her POA multiple times. She is a DNR status and he would like to continue current measures, vasopressors are okay for now. Willing for drainage of the fluid collection. Otherwise no other aggressive interventions. 11/23 Poor sleep last night. Still on vasopressors but nurses have come down a little bit this morning. Leukocytosis improved, renal function improved. Patient states she is ready to go home. *given a large amount of congealed blood this patient will likely need an incision with washout surgically. Will discuss case with family and then subsequent [place] Dr. Portillo tomorrow. Hemoglobin has dropped but it stable from this afternoon repeat imaging appears to be stable. But more extravasation into the tissue. 1 PRBC ordered and IV fluid bolus. Coags checked. Review of Systems: denies headache/fever/chills/nausea/vomiting/chest or abdominal pain/cough/dyspnea/diarrhea. Otherwise see above. Constitutional Vitals: Vital Signs Temp Pulse Resp BP Pulse Ox 97.0 F 55 L 11 L 127/57 97 11/25/19 07:01 11/25/19 07:01 11/25/19 07:01 11/25/19 07:01 11/25/19 07:01 Period Temp Pulse Resp BP Sys/Nichols Pulse Ox Last 24 Hr 96.8 F-100.4 F 50-68 9-24 76-158/26-78 91-99 Intake and Output 11/24/19 11/25/19 11/25/19 21:59 05:59 13:59 Intake Total 64 119 54 Output Total 231 186 110 Balance - -67 -56 Weight 146.193 kg Intake & Output: Intake & Output 11/24/19 11/25/19 11/25/19 21:59 05:59 13:59 Intake Total 64 119 54 Output Total 231 186 110 Balance - - -56 Weight 146.193 kg Intake: IV 64 119 54 Cleocin 600 mg In Dextrose 5% 54 54 54 in Water 50 ml @ 100 mls/hr IV Q8H [facility] Rx#:[id number] Precedex 400 Mcg/100 ml 10 Dextrose 400 Mcg In Premix 1 Bag @ 0.2 MCG/KG/HR 7.552 mls/ hr IV .[id number] [facility] Rx#: [id number] Output: Urine Catheter Amount 231 186 110 Other: Meal Dinner Percent of Meal Consumed Refused Feeding Ability Assist with Tray Set Up Urine Appearance Clear Clear Clear Uretheral ([place]) Clear Clear Urine Color Bright Yellow Light Ashwini Straw Uretheral ([place]) Light Ashwini Light Ashwini Urine Odor Normal Normal Stool Size Moderate Copious Stool Color Brown Brown Yellow Yellow Stool Consistency Watery Watery # Bowel Movements 1 # of times incontinent of 1 2 Bowels Exam: General: Alert, Awake, No acute Distress, obese Eyes/N/T: EOMI, Head/Neck: neck supple, CV: irreg irreg tachycardic, No murmurs, Chest: Large area of ecchymosis over right lateral breast into axilla Pulm: Diminished b/l, no wheezing/ronchi Abd: soft, nontender, +BS x4 Ext: no clubbing/cyanosis , 3+ chronic b/l LE edema Neuro: Alert, no focal deficits, moves all extremities, Skin: warm/dry OBJ DATA Labs CBC & Chem 7: 11/24/19 05:00 11/24/19 05:00 Labs: Abnormal Lab Results 11/24/19 11/24/19 11/24/19 05:00 05:00 05:00 WBC 13.0 H RDW 14.6 H MPV 12.0 H Gran % Lymph % (Auto) Gran # Lymph # (Auto) Seg Neutrophils % 91 H Band Neutrophils % Lymphocytes % 7 L ESR PT 14.6 H INR VBG Lactic Acid POC Total CO2 Creatinine Glucose 226 H POC Glucose Hemoglobin A1c Insulin Level Calcium 7.7 L POC WB Ioniz Calcium Phosphorus 2.5 L GGT 131 H Alkaline Phosphatase Lactate Dehydrogenase C-Reactive Protein 28.1 H Total Protein 5.8 L Albumin 2.2 L Globulin Albumin/Globulin Ratio 0.6 L Triglycerides 181 H Prolactin Urine Protein Urine Glucose (UA) Urine Occult Blood Urine RBC Urine WBC Amorphous Crystals Urine Opiates Screen Ur Barbiturates Screen 11/23/19 11/23/19 11/23/19 04:22 04:22 04:22 WBC 20.3 H RDW 14.6 H MPV 12.1 H Gran % Lymph % (Auto) Gran # Lymph # (Auto) Seg Neutrophils % 86 H Band Neutrophils % 11 H Lymphocytes % 1 L ESR PT INR VBG Lactic Acid 2.6 H POC Total CO2 Creatinine Glucose POC Glucose Hemoglobin A1c Insulin Level Calcium POC WB Ioniz Calcium Phosphorus GGT Alkaline Phosphatase Lactate Dehydrogenase C-Reactive Protein Total Protein Albumin Globulin Albumin/Globulin Ratio Triglycerides Prolactin 23.5 H Urine Protein Urine Glucose (UA) Urine Occult Blood Urine RBC Urine WBC Amorphous Crystals Urine Opiates Screen Ur Barbiturates Screen 11/23/19 11/23/19 11/22/19 04:22 04:22 20:52 WBC RDW MPV Gran % Lymph % (Auto) Gran # Lymph # (Auto) Seg Neutrophils % Band Neutrophils % Lymphocytes % ESR PT 16.6 H INR 1.3 H VBG Lactic Acid POC Total CO2 Creatinine 1.2 H Glucose 218 H POC Glucose Hemoglobin A1c Insulin Level Calcium 7.6 L POC WB Ioniz Calcium Phosphorus 1.6 L GGT 147 H Alkaline Phosphatase Lactate Dehydrogenase 301 H C-Reactive Protein Total Protein 5.5 L Albumin 2.2 L Globulin Albumin/Globulin Ratio 0.7 L Triglycerides Prolactin Urine Protein Urine Glucose (UA) Urine Occult Blood Urine RBC Urine WBC Amorphous Crystals Urine Opiates Screen Suspect positive A Ur Barbiturates Screen Suspect positive A 11/22/19 11/22/19 11/22/19 20:43 19:10 19:10 WBC RDW MPV Gran % Lymph % (Auto) Gran # Lymph # (Auto) Seg Neutrophils % Band Neutrophils % Lymphocytes % ESR 54 H PT INR VBG Lactic Acid POC Total CO2 21 L Creatinine Glucose POC Glucose 254 H Hemoglobin A1c Insulin Level Calcium POC WB Ioniz Calcium 0.99 L Phosphorus GGT Alkaline Phosphatase Lactate Dehydrogenase C-Reactive Protein 13.9 H Total Protein Albumin Globulin Albumin/Globulin Ratio Triglycerides Prolactin Urine Protein Urine Glucose (UA) Urine Occult Blood Urine RBC Urine WBC Amorphous Crystals Urine Opiates Screen Ur Barbiturates Screen 11/22/19 11/22/19 11/22/19 19:10 19:10 18:56 WBC RDW MPV Gran % Lymph % (Auto) Gran # Lymph # (Auto) Seg Neutrophils % Band Neutrophils % Lymphocytes % ESR PT 14.8 H INR VBG Lactic Acid 5.5 H* POC Total CO2 Creatinine Glucose POC Glucose Hemoglobin A1c 7.7 H Insulin Level 63.4 H Calcium POC WB Ioniz Calcium Phosphorus GGT Alkaline Phosphatase Lactate Dehydrogenase C-Reactive Protein Total Protein Albumin Globulin Albumin/Globulin Ratio Triglycerides Prolactin Urine Protein Urine Glucose (UA) Urine Occult Blood Urine RBC Urine WBC Amorphous Crystals Urine Opiates Screen Ur Barbiturates Screen 11/22/19 11/22/19 11/22/19 13:30 12:38 10:47 WBC RDW MPV Gran % Lymph % (Auto) Gran # Lymph # (Auto) Seg Neutrophils % Band Neutrophils % Lymphocytes % ESR PT INR VBG Lactic Acid 4.3 H* POC Total CO2 Creatinine 1.2 H Glucose 205 H POC Glucose Hemoglobin A1c Insulin Level Calcium POC WB Ioniz Calcium Phosphorus GGT Alkaline Phosphatase 118 H Lactate Dehydrogenase C-Reactive Protein Total Protein Albumin 2.9 L Globulin 4.0 H Albumin/Globulin Ratio 0.7 L Triglycerides Prolactin Urine Protein >=500 A Urine Glucose (UA) 50 A Urine Occult Blood >=1.0 A Urine RBC 176 H Urine WBC 5 H Amorphous Crystals Few A Urine Opiates Screen Ur Barbiturates Screen 11/22/19 11/22/19 11/22/19 10:47 10:47 10:43 WBC 27.6 H RDW MPV 11.4 H Gran % 94.7 H Lymph % (Auto) 2.2 L Gran # 26.15 H Lymph # (Auto) 0.60 L Seg Neutrophils % Band Neutrophils % Lymphocytes % ESR PT 14.9 H INR VBG Lactic Acid 2.9 H POC Total CO2 Creatinine Glucose POC Glucose Hemoglobin A1c Insulin Level Calcium POC WB Ioniz Calcium Phosphorus GGT Alkaline Phosphatase Lactate Dehydrogenase C-Reactive Protein Total Protein Albumin Globulin Albumin/Globulin Ratio Triglycerides Prolactin Urine Protein Urine Glucose (UA) Urine Occult Blood Urine RBC Urine WBC Amorphous Crystals Urine Opiates Screen Ur Barbiturates Screen Meds: Medications Acetaminophen (Tylenol) 650 mg MS Q4-6HP PRN PRN Reason: PAIN/FEVER > 101 Hydrocodone Bitart/Acetaminophen ([place] 7.5/325mg) 1 tab PO TIDP PRN; Protocol PRN Reason: Pain Last Admin: 11/25/19 00:01 Dose: 1 tab Documented by: Amiodarone HCl (Cordarone) 200 mg PO [facility] Last Admin: 11/24/19 08:34 Dose: 200 mg Documented by: Apixaban (Eliquis) 5 mg PO BID [facility] Last Admin: 11/24/19 21:22 Dose: 5 mg Documented by: Aspirin (Aspirin) 81 mg PO DAILY [facility] Last Admin: 11/24/19 08:50 Dose: 81 mg Documented by: Bisacodyl (Dulcolax) 10 mg MS Q2-3DAYS PRN PRN Reason: Constipation Carbidopa/Levodopa (Sinemet 10/100) 1 tab PO BID [facility] Last Admin: 11/24/19 21:22 Dose: 1 tab Documented by: Cefepime HCl (Maxipime) 2 gm IV Q12H [facility]; Protocol Last Admin: 11/24/19 21:27 Dose: 2 gm Documented by: Cilostazol (Pletal) 200 mg PO BID [facility] Last Admin: 11/24/19 21:22 Dose: 200 mg Documented by: Diagnostic Test (Pha) (Accu-Chek) 1 each FS ACHS [facility] Last Admin: 11/25/19 05:04 Dose: 1 each Documented by: Docusate Sodium (Colace) 100 mg PO BID [facility] Last Admin: 11/24/19 21:07 Dose: Not Given Documented by: Famotidine (Pepcid) 20 mg IV Q12 [facility] Last Admin: 11/24/19 21:12 Dose: 20 mg Documented by: Hydralazine HCl (Apresoline) 0 mg IV Q2HP PRN PRN Reason: Hypertension Last Admin: 11/23/19 01:25 Dose: 20 mg Documented by: Dexmedetomidine HCl 400 mcg/ (Premix) 100 mls @ 7.552 mls/hr IV .[id number] [facility]; Protocol Last Admin: 11/25/19 06:37 Dose: Not Given Documented by: Acetaminophen (Ofirmev) 650 mg in 65 mls @ 130 mls/hr IV Q6HP PRN; Protocol PRN Reason: PAIN/FEVER > 101 Last Infusion: 11/25/19 00:54 Dose: Infused Documented by: Insulin Glargine (Lantus) 34 unit SQ HS [facility] Last Admin: 11/24/19 21:26 Dose: 34 units Documented by: Insulin Human Lispro (Humalog) 0 unit SQ ACHS [facility]; Protocol Last Admin: 11/24/19 21:08 Dose: Not Given Documented by: Lactobacillus Rhamnosus (Culturelle) 1 cap PO BID [facility] Last Admin: 11/24/19 21:21 Dose: 1 cap Documented by: Loperamide HCl (Imodium) 2 mg PO PRN PRN PRN Reason: Diarrhea Last Admin: 11/25/19 00:01 Dose: 2 mg Documented by: Lorazepam (Ativan) 0.5 mg IV Q4HP PRN PRN Reason: ANXIETY/SEDATION Last Admin: 11/24/19 01:59 Dose: 0.5 mg Documented by: Metoclopramide HCl (Reglan) 10 mg IV Q6HP PRN PRN Reason: nausea Metoprolol Succinate (Toprol Xl) 100 mg PO DAILY [facility] Morphine Sulfate (Morphine) 1 - 4 mg IV Q3HP PRN; Protocol PRN Reason: Per Pain Protocol Last Admin: 11/25/19 05:31 Dose: 2 mg Documented by: Morphine Sulfate (Ms Contin) 15 mg PO BID [facility]; Protocol Last Admin: 11/24/19 21:22 Dose: 15 mg Documented by: Ondansetron HCl (Zofran) 4 mg IV Q4-6HP PRN PRN Reason: Nausea And Vomiting Last Admin: 11/25/19 05:32 Dose: 4 mg Documented by: Pregabalin (Lyrica) 150 mg PO TID [facility] Last Admin: 11/24/19 21:22 Dose: 150 mg Documented by: Rakan (Senokot) 1 tab PO HSP PRN PRN Reason: Constipation Sodium Chloride (Saline Flush) 10 ml IV Q8 [facility] Last Admin: 11/25/19 06:40 Dose: 10 ml Documented by: Venlafaxine HCl (Effexor Xr) 150 mg PO DAILY [facility] Last Admin: 11/24/19 12:50 Dose: 150 mg Documented by: A/P Narrative A/P Narrative: Narrative: A: *Hemorrhagic shock: 2/2 large hematoma from fall with supratherapeutic INR *Doubt Infected hematoma/sepsis: Gram stain no organisms, pending culture -leukocytosis but no bandemia, low PCT. drainage of hematoma not purulent per rads. *Acute blood loss anemia: -s/p 3PRBC (11/22) *FABIAN, likely ATN: 2/2 above -good UOP *Hyponatremia: resolved *Coagulopathy w/supratherapeutic INR: 2/2 warfarin, 2.1 this morning *Lactic acidosis: resolved *AFib w/RVR: was on warfarin and BB *CAD w/cabg: on BB/anticoag *iCMP with systolic/diastolic dysfxn: *COPD/pulmonary fibrosis (no home oxygen): *CKD IIIB: Follows with Dr. Maldonado *HTN: *Hypothyroidism: *Dementia: *Goals of care: continue current therapies but no escalation of care or Transfer if needed * P: -wean off vasopressors, -Monitor H&H and INR, s/p FFP & Vit K in ED -Continue IV antibiotics for now pending cultures -d/w with surg for washout vs transfer for embolization -cont home lopressor for heart rate control, will be difficult while on levophed, wouldn't switch to phenylephrine given the FABIAN, may try Vasopressin to decrease levophed need. -hold diuretics until off vasopressors and BP improved -cont home IH's, IS -PT/ OT -CM for eventual placement -ppx: SCDs/TEDS, no chemical prophylaxis given bleeding/hematoma DNR Time Spent With Patient Time: Total time spent is greater than 50% in coordination of care (as documented) at patient's floor/unit and/or counseling patient:
[2019-11-25] MEDS: INSULIN LISPRO 1 UNIT/0.01 ML UNIT SQ SCH ×5 (07:51→20:48)
[2019-11-25] MEDS ORDERED: METOPROLOL SUCCINATE 50 MG TAB.XL.24H PO SCH (09:00)
[2019-11-25] MEDS: DOCUSATE SODIUM 100 MG CAPSULE PO SCH ×2 (09:38→21:04)
[2019-11-25] MEDS: FAMOTIDINE/PF 20 MG/2 ML VIAL IV SCH ×2 (09:50→21:05)
[2019-11-25] MEDS: AMIODARONE HCL 200 MG TABLET PO SCH (09:51)
[2019-11-25] MEDS: APIXABAN 5 MG TABLET PO SCH ×2 (09:51→20:52)
[2019-11-25] MEDS: LACTOBACILLUS 1 CAPSULE PO SCH ×2 (09:51→20:52)
[2019-11-25] MEDS: VENLAFAXINE 150 MG CAP.XL.24H PO SCH (09:51)
[2019-11-25] MEDS: CEFEPIME 2 GM VIAL IV SCH ×2 (09:51→20:58)
[2019-11-25] MEDS: ASPIRIN 81 MG TAB.CHEW PO SCH (09:51)
[2019-11-25] MEDS: CILOSTAZOL 100 MG TABLET PO SCH ×2 (09:51→20:53)
[2019-11-25] MEDS: morphine 15 MG TAB.SR.12H PO SCH ×2 (09:51→20:53)
[2019-11-25] MEDS: PREGABALIN 150 MG CAPSULE PO SCH ×3 (09:52→21:04)
[2019-11-25] MEDS: CARBIDOPA/LEVODOPA 10/100 TABLET PO SCH ×2 (09:52→21:25)
[2019-11-25 10:09] LABS: Basophils # (Auto) 0.07 K/mcL (0.00-0.30); Basophils % (Auto) 0.7 % (0.0-2.0); Eosinophils # (Auto) 0.54 K/mcL (0.00-0.70); Eosinophils % (Auto) 5.3 % (0.0-7.0); Granulocytes % (Auto) 63.1 % (38.0-78.0); Hematocrit 38.2 % (34.1-44.9); Hemoglobin 11.9 g/dL (11.2-15.7); Lymphocytes # (Auto) 2.25 K/mcL (1.50-4.80); Lymphocytes % (Auto) 22.1 % (15.5-49.0); Mean Cell Volume 88.8 fL (80.0-100.0); Mean Corpuscular HGB Conc 31.2 g/dL (31.0-36.0); Mean Platelet Volume 11.5 fL (7.4-10.4); Monocytes % (Auto) 8.8 % (1.0-12.0); Platelet Count 209 K/mcL (140-440); Red Cell Distribution Width 14.5 % (11.5-14.5); WBC 10.2 K/mcL (4.50-11.00)
[2019-11-25 10:31] LABS: ALT/SGPT 12 U/l (0-40); AST/SGOT 18 U/l (0-37); Albumin 2.4 gm/dL (3.2-5.2); Albumin/Globulin Ratio 0.6 (1.0-2.3); Alkaline Phosphatase 85 U/L (39-117); Bilirubin,Direct < 0.2 mg/dL (0.0-0.3); Bilirubin,Total 0.3 mg/dL (0.0-1.0); Blood Urea Nitrogen 31 mg/dl (8-23); Calcium 8.3 mg/dl (8.6-10.4); Carbon Dioxide 24 mmol/L (22-30); Chloride 100 mmol/L (96-108); Globulin 4.1 gm/dL (2.2-3.7); Glomerular Filtration Rate 37; Glucose 185 mg/dL (70-105); Lactate Dehydrogenase 243 U/L (94-250); Phosphorous 3.3 mg/dL (2.7-4.5); Triglycerides 195 mg/dl (<150); Uric Acid 6.6 mg/dL (2.5-8.0)
[2019-11-25] MEDS ORDERED: 0.9 % SODIUM CHLORIDE 1,000 ML IV SCH ×2 (11:15→12:21)
[2019-11-25] MEDS ORDERED: LORazepam 2 MG/ML VIAL IV PRN (12:21)
[2019-11-25] MEDS ORDERED: ACETAMINOPHEN 650 MG SUPP.RECT PR PRN (12:21)
[2019-11-25] MEDS ORDERED: HYDROCODONE/APAP 7.5/325MG TABLET PO PRN (12:21)
[2019-11-25] MEDS ORDERED: METOCLOPRAMIDE 10 MG/2 ML VIAL IV PRN (12:21)
[2019-11-25] MEDS ORDERED: BISACODYL 10 MG SUPP.RECT PR PRN (12:21)
[2019-11-25] MEDS ORDERED: SENNOSIDES 1 TABLET PO PRN (12:21)
[2019-11-25] MEDS: ACETAMINOPHEN 650 MG/65 ML BOTTLE IV PRN ×2 (15:46→20:59)
[2019-11-25] MEDS: INSULIN GLARGINE, HUMAN 1 UNIT/0.01 ML SQ SCH (20:49)
[2019-11-25] MEDS: ONDANSETRON 4 MG/2 ML VIAL IV PRN (22:29)
[2019-11-26] MEDS: 0.9 % SODIUM CHLORIDE 10 ML SYRINGE IV SCH ×3 (05:21→22:07)
[2019-11-26 08:15] LABS: ALT/SGPT 7 U/l (0-40); AST/SGOT 18 U/l (0-37); Albumin 2.2 gm/dL (3.2-5.2); Albumin/Globulin Ratio 0.6 (1.0-2.3); Alkaline Phosphatase 85 U/L (39-117); Bilirubin,Direct < 0.2 mg/dL (0.0-0.3); Bilirubin,Total 0.2 mg/dL (0.0-1.0); Calcium 7.8 mg/dl (8.6-10.4); Carbon Dioxide 21 mmol/L (22-30); Chloride 103 mmol/L (96-108); Globulin 3.7 gm/dL (2.2-3.7); Glucose 176 mg/dL (70-105); Lactate Dehydrogenase 243 U/L (94-250); Triglycerides 172 mg/dl (<150)
[2019-11-26] MEDS: VENLAFAXINE 150 MG CAP.XL.24H PO SCH (08:20)
[2019-11-26] MEDS: CARBIDOPA/LEVODOPA 10/100 TABLET PO SCH ×2 (08:21→21:58)
[2019-11-26] MEDS: AMIODARONE HCL 200 MG TABLET PO SCH (08:21)
[2019-11-26] MEDS: LACTOBACILLUS 1 CAPSULE PO SCH ×2 (08:21→21:57)
[2019-11-26] MEDS: PREGABALIN 150 MG CAPSULE PO SCH (08:22)
[2019-11-26] MEDS: ASPIRIN 81 MG TAB.CHEW PO SCH (08:22)
[2019-11-26] MEDS: APIXABAN 5 MG TABLET PO SCH ×2 (08:22→21:58)
[2019-11-26] MEDS: morphine 15 MG TAB.SR.12H PO SCH (08:22)
[2019-11-26 08:23] LABS: Blood Urea Nitrogen 24 mg/dl (8-23); Glomerular Filtration Rate 28; Phosphorous 4.6 mg/dL (2.7-4.5)
[2019-11-26] MEDS: CILOSTAZOL 100 MG TABLET PO SCH ×2 (08:23→21:58)
[2019-11-26] MEDS: METOPROLOL SUCCINATE 50 MG TAB.XL.24H PO SCH (08:23)
[2019-11-26] MEDS: FAMOTIDINE/PF 20 MG/2 ML VIAL IV SCH ×2 (08:24→21:27)
[2019-11-26] MEDS: INSULIN LISPRO 1 UNIT/0.01 ML UNIT SQ SCH ×4 (08:25→21:25)
[2019-11-26] MEDS: CEFEPIME 2 GM VIAL IV SCH ×2 (08:25→21:26)
[2019-11-26] MEDS: DOCUSATE SODIUM 100 MG CAPSULE PO SCH ×2 (08:31→21:58)
--- NOTE | 2019-11-26 13:58 | Internal Med Progress Note ---
SUBJECTIVE Subjective Patient information: Note initiated : 11/26/19 at 1:56 pm Service Date, if different from initiated Date: [] Patient: Bobbi Murphy 64 y/o F admitted on 11/22/19 for blood sugar. Chief Complaint: She actually had nearly an identical presentation in September 2018 she was found obtunded with a fever. She was started on broad-spectrum Bactrim antibiotics including acyclovir and did have a elevated lactate with the increase in her repeat lactate as well [place]. Lumbar puncture was ordered but no seen results that were ever done. Her septic picture is attributed to left lower extremity infection which she has had before and what I suspect is the current source. Does not report that her says she was a DNR but I have not talked to the and unable to gather accurate history from the given her altered mental state. She is on significant number of medications that may be contributing to her altered mental state. unAble to gather review of systems 11/22 Patient was on Precedex drip last night for agitation and confusion concern for risk of pulling out lines. On drip this morning but does respond to voice but otherwise does not follow commands. Lactic acid improving, leukocytosis improving. Fever curve improving. Good urine output. 11/23 She was weaned down on the Precedex last night but then became agitated and started pulling at lines. Started back up in the starting to wean again today. This morning she is more alert cooperative and mentation is improving. Cytosis continues to improve, no bandemia today. Renal function good *Patient was supposed to see Dr. Huber but has not yet. Patient was started on Sinemet empirically has it was difficult to get patient in to see the neurologist. 11/24 Feeling better today. Sitting up eating breakfast. Mentation resolved. Did have diarrhea last night C. difficile negative. 11/25 Mentation seems to be better she is alert oriented able to recognize people Continuing broad-spectrum antibiotic and added gram-positive coverage I will continue the vancomycin with her history of multiple hospital stay Ordered ultrasound of the lower extremity to look for any DVT Interval history: Narrative: Review of system Constitutional-complaining of leg pain, Head and neck-no headache no oral cavity symptoms no ear pain Respiratory-no shortness of breath diminished lung sounds Cardiac-denies any chest pain or palpitation Abdomen-distended no diarrhea Neuro-no focal neuro deficit no headache she appears to be drowsy Psychiatry-no anxiety no depression Constitutional Vitals: Vital Signs Temp Pulse Resp BP Pulse Ox 97.8 F 78 16 94/42 95 11/26/19 12:00 11/26/19 12:00 11/26/19 12:00 11/26/19 12:00 11/26/19 12:00 Period Temp Pulse Resp BP Sys/Nichols Pulse Ox Last 24 Hr 97.2 F-98.7 F 74-89 16-20 94-125/42-54 90-96 Intake and Output 11/25/19 11/26/19 11/26/19 21:59 05:59 13:59 Intake Total 430 440 480 Output Total 2 125 350 Balance 428 315 130 Weight 338 lb 1.6 oz Intake & Output: Intake & Output 11/25/19 11/26/19 11/26/19 21:59 05:59 13:59 Intake Total 430 440 480 Output Total 2 125 350 Balance 428 315 130 Weight 338 lb 1.6 oz Intake: IV 130 Sodium Chloride 0.9% 1,000 ml @ 0 100 mls/hr IV .Q10H [facility] Rx#: [id number] Oral 300 440 480 Output: Void Amount 1 125 350 # of times incontinent of urine 1 Other: Meal Dinner Breakfast Percent of Meal Consumed 50% 100% Feeding Ability Assist with Tray Set Up Urine Appearance Clear Clear Urine Color Bright Yellow Pale Urine Odor Normal Stool Size Moderate Stool Color Brown Stool Consistency Liquid # Voids 1 General appearance: mild distress and obese Head Head exam: Present atraumatic and normal inspection Eye Eye exam: Present EOMI; Absent periorbital swelling and scleral icterus Neck Neck exam: Absent lymphadenopathy, meningismus and tenderness Respiratory Respiratory exam: Present decreased breath sounds; Absent rhonchi and wheezes Cardiovascular Cardiovascular exam: Present irregular rhythm; Absent rubs and +S3 GI/Abdominal GI/Abdominal exam: Present distended; Absent guarding and tenderness Extremities Exam Extremities exam: Present calf tenderness and pedal edema; Absent full ROM Additional comments: Cellulitis extending below knee Neurological Exam Neurological exam: Present CN II-XII intact; Absent motor sensory deficit Psychiatric Psychiatric exam: Absent agitated, anxious and depressed OBJ DATA Labs CBC & Chem 7: 11/25/19 09:35 11/26/19 05:55 Labs: Abnormal Lab Results 11/26/19 11/25/19 11/25/19 05:55 09:35 09:35 WBC RDW MPV 11.5 H Seg Neutrophils % Lymphocytes % PT Carbon Dioxide 21 L BUN 24 H 31 H Creatinine 1.9 H 1.5 H Glucose 176 H 185 H Calcium 7.8 L 8.3 L Phosphorus 4.6 H GGT 109 H 125 H C-Reactive Protein Total Protein Albumin 2.2 L 2.4 L Globulin 4.1 H Albumin/Globulin Ratio 0.6 L 0.6 L Triglycerides 172 H 195 H 11/25/19 11/24/19 11/24/19 09:35 05:00 05:00 WBC RDW MPV Seg Neutrophils % Lymphocytes % PT 14.6 H Carbon Dioxide BUN Creatinine Glucose 226 H Calcium 7.7 L Phosphorus 2.5 L GGT 131 H C-Reactive Protein 19.5 H 28.1 H Total Protein 5.8 L Albumin 2.2 L Globulin Albumin/Globulin Ratio 0.6 L Triglycerides 181 H 11/24/19 05:00 WBC 13.0 H RDW 14.6 H MPV 12.0 H Seg Neutrophils % 91 H Lymphocytes % 7 L PT Carbon Dioxide BUN Creatinine Glucose Calcium Phosphorus GGT C-Reactive Protein Total Protein Albumin Globulin Albumin/Globulin Ratio Triglycerides Meds: Medications Acetaminophen (Tylenol) 650 mg ID Q4-6HP PRN PRN Reason: PAIN/FEVER > 101 Hydrocodone Bitart/Acetaminophen ([place] 7.5/325mg) 1 tab PO TIDP PRN; Protocol PRN Reason: Pain Last Admin: 11/26/19 03:04 Dose: 1 tab Documented by: Amiodarone HCl (Cordarone) 200 mg PO [facility] Last Admin: 11/26/19 08:21 Dose: 200 mg Documented by: Apixaban (Eliquis) 5 mg PO BID [facility] Last Admin: 11/26/19 08:22 Dose: 5 mg Documented by: Aspirin (Aspirin) 81 mg PO DAILY [facility] Last Admin: 11/26/19 08:22 Dose: 81 mg Documented by: Bisacodyl (Dulcolax) 10 mg ID Q2-3DAYS PRN PRN Reason: Constipation Carbidopa/Levodopa (Sinemet 10/100) 1 tab PO BID [facility] Last Admin: 11/26/19 08:21 Dose: 1 tab Documented by: Cefepime HCl (Maxipime) 2 gm IV Q12H [facility]; Protocol Last Admin: 11/26/19 08:25 Dose: 2 gm Documented by: Cilostazol (Pletal) 200 mg PO BID [facility] Last Admin: 11/26/19 08:23 Dose: 200 mg Documented by: Diagnostic Test (Pha) (Accu-Chek) 1 each FS [facility] Last Admin: 11/26/19 11:42 Dose: 1 each Documented by: Docusate Sodium (Colace) 100 mg PO BID [facility] Last Admin: 11/26/19 08:31 Dose: Not Given Documented by: Famotidine (Pepcid) 20 mg IV Q12 [facility] Last Admin: 11/26/19 08:24 Dose: 20 mg Documented by: Hydralazine HCl (Apresoline) 0 mg IV Q2HP PRN PRN Reason: Hypertension Acetaminophen (Ofirmev) 650 mg in 65 mls @ 130 mls/hr IV Q6HP PRN; Protocol PRN Reason: PAIN/FEVER > 101 Last Infusion: 11/25/19 21:48 Dose: Infused Documented by: Insulin Glargine (Lantus) 34 unit SQ [facility] Last Admin: 11/25/19 20:49 Dose: 34 units Documented by: Insulin Human Lispro (Humalog) 0 unit SQ [facility]; Protocol Last Admin: 11/26/19 11:47 Dose: 4 units Documented by: Lactobacillus Rhamnosus (Culturelle) 1 cap PO BID [facility] Last Admin: 11/26/19 08:21 Dose: 1 cap Documented by: Loperamide HCl (Imodium) 2 mg PO PRN PRN PRN Reason: Diarrhea Lorazepam (Ativan) 0.5 mg IV Q4HP PRN PRN Reason: ANXIETY/SEDATION Metoclopramide HCl (Reglan) 10 mg IV Q6HP PRN PRN Reason: nausea Metoprolol Succinate (Toprol Xl) 100 mg PO DAILY [facility] Last Admin: 11/26/19 08:23 Dose: 100 mg Documented by: Morphine Sulfate (Ms Contin) 15 mg PO BID [facility]; Protocol Last Admin: 11/26/19 08:22 Dose: 15 mg Documented by: Morphine Sulfate (Morphine) 1 - 4 mg IV Q3HP PRN; Protocol PRN Reason: Per Pain Protocol Last Admin: 11/25/19 22:29 Dose: 1 mg Documented by: Ondansetron HCl (Zofran) 4 mg IV Q4-6HP PRN PRN Reason: Nausea And Vomiting Last Admin: 11/25/19 22:29 Dose: 4 mg Documented by: Pregabalin (Lyrica) 150 mg PO TID [facility] Last Admin: 11/26/19 08:22 Dose: 150 mg Documented by: Senna (Senokot) 1 tab PO HSP PRN PRN Reason: Constipation Sodium Chloride (Saline Flush) 10 ml IV Q8 [facility] Last Admin: 11/26/19 05:21 Dose: 10 ml Documented by: Venlafaxine HCl (Effexor Xr) 150 mg PO DAILY [facility] Last Admin: 11/26/19 08:20 Dose: 150 mg Documented by: A/P Narrative A/P Narrative: Narrative: Sepsis secondary to left lower extremity cellulitis Sepsis improved Continued cefepime and added vancomycin as a cellulitis not improving Blood cultures so far has been negative Lactic acidosis-improved Left lower extremity cellulitis CT of the leg did not show any evidence of compartment syndrome or Continued cefepime and added vancomycin as the cellulitis did not improve significantly Ordered ultrasound of the lower extremity to look for any DVT as she was very tender Acute encephalopathy due to polypharmacy Improved We will limit some of them medication that affects her neuro status Acute renal failure Underlying CKD Monitoring Type 2 diabetes Takes insulin at home Monitor sliding scale insulin Paroxysmal atrial fibrillation Continue amiodarone and apixaban Depression anxiety Continued home medications Morbid obesity Peripheral vascular disease Continued aspirin and cilostazol DVT prophylaxis-she is on apixaban Time Spent With Patient Time: Total time spent is greater than 50% in coordination of care (as documented) at patient's floor/unit and/or counseling patient:
--- NOTE | 2019-11-26 16:23 | Ultrasound Report ---
CLINICAL INFORMATION: Bilateral leg swelling COMPARISON: None. FINDINGS: The entire deep venous system, in both lower extremities, including the common femoral, superficial femoral, popliteal and paired trifurcation calf veins are easily compressible and show normal venous blood flow on color and spectral Doppler. No evidence of thrombus IMPRESSION: Negative exam - no evidence of deep vein thrombosis in either lower extremity. Interpreted and Authenticated by: Ramses Kinney 11/26/19
[2019-11-26] MEDS ORDERED: VANCOMYCIN PER PHARMACY IV ONE (20:56)
[2019-11-26] MEDS: 0.9 % SODIUM CHLORIDE 1,000 ML IV SCH (21:01)
[2019-11-26] MEDS: INSULIN GLARGINE, HUMAN 1 UNIT/0.01 ML SQ SCH (21:26)
[2019-11-26] MEDS: PREGABALIN 25 MG CAPSULE PO SCH (21:57)
[2019-11-26] MEDS ORDERED: VANCOMYCIN 1,500 MG in 0.9 % SODIUM CHLORIDE 500 ML IV ONE (22:00)
[2019-11-27] MEDS: 0.9 % SODIUM CHLORIDE 10 ML SYRINGE IV SCH ×3 (04:45→20:53)
[2019-11-27] MEDS: ACETAMINOPHEN 650 MG/65 ML BOTTLE IV PRN ×2 (05:30→20:54)
[2019-11-27] MEDS ORDERED: VANCOMYCIN PER PHARMACY IV SCH (06:45)
[2019-11-27] MEDS: 0.9 % SODIUM CHLORIDE 1,000 ML IV SCH ×3 (07:27→15:57)
[2019-11-27] MEDS: INSULIN LISPRO 1 UNIT/0.01 ML UNIT SQ SCH ×4 (07:45→20:53)
[2019-11-27 07:47] LABS: Eosinophils # (Auto) 0.62 K/mcL (0.00-0.70); Eosinophils % (Auto) 5.9 % (0.0-7.0); Granulocytes % (Auto) 52.4 % (38.0-78.0); Hematocrit 32.7 % (34.1-44.9); Hemoglobin 10.3 g/dL (11.2-15.7); Lymphocytes # (Auto) 3.14 K/mcL (1.50-4.80); Mean Cell Volume 88.6 fL (80.0-100.0); Mean Corpuscular HGB Conc 31.5 g/dL (31.0-36.0); Mean Platelet Volume 11.5 fL (7.4-10.4); Monocytes # (Auto) 1.12 K/mcL (0.10-0.90); Monocytes % (Auto) 10.7 % (1.0-12.0); Platelet Count 238 K/mcL (140-440); RBC 3.69 M/mcL (3.59-5.38); Red Cell Distribution Width 14.4 % (11.5-14.5); WBC 10.5 K/mcL (4.50-11.00)
[2019-11-27 08:06] LABS: ALT/SGPT 7 U/l (0-40); AST/SGOT 17 U/l (0-37); Albumin 2.2 gm/dL (3.2-5.2); Albumin/Globulin Ratio 0.6 (1.0-2.3); Alkaline Phosphatase 97 U/L (39-117); Bilirubin,Total 0.2 mg/dL (0.0-1.0); Calcium 8.1 mg/dl (8.6-10.4); Carbon Dioxide 24 mmol/L (22-30); Chloride 103 mmol/L (96-108); Globulin 3.8 gm/dL (2.2-3.7); Glomerular Filtration Rate 24; Glucose 169 mg/dL (70-105)
[2019-11-27 08:15] LABS: Blood Urea Nitrogen 40 mg/dl (8-23)
[2019-11-27] MEDS: PREGABALIN 25 MG CAPSULE PO SCH ×2 (08:46→20:09)
[2019-11-27] MEDS: CARBIDOPA/LEVODOPA 10/100 TABLET PO SCH ×2 (08:46→20:08)
[2019-11-27] MEDS: LACTOBACILLUS 1 CAPSULE PO SCH ×2 (08:47→20:08)
[2019-11-27] MEDS: AMIODARONE HCL 200 MG TABLET PO SCH (08:47)
[2019-11-27] MEDS: VENLAFAXINE 150 MG CAP.XL.24H PO SCH (08:47)
[2019-11-27] MEDS: ASPIRIN 81 MG TAB.CHEW PO SCH (08:48)
[2019-11-27] MEDS: APIXABAN 5 MG TABLET PO SCH ×2 (08:48→20:08)
[2019-11-27] MEDS: FAMOTIDINE/PF 20 MG/2 ML VIAL IV SCH ×2 (08:48→20:09)
[2019-11-27] MEDS: CEFEPIME 2 GM VIAL IV SCH ×2 (08:48→20:12)
[2019-11-27] MEDS: DOCUSATE SODIUM 100 MG CAPSULE PO SCH ×3 (08:50→20:34)
[2019-11-27] MEDS: CILOSTAZOL 100 MG TABLET PO SCH ×2 (08:54→20:09)
[2019-11-27] MEDS: METOPROLOL SUCCINATE 50 MG TAB.XL.24H PO SCH ×2 (11:36→13:32)
[2019-11-27] MEDS: VANCOMYCIN 1,500 MG in 0.9 % SODIUM CHLORIDE 500 ML IV SCH (13:13)
[2019-11-27 14:04] LABS: Opiate Confirmation POSITIVE (N)
[2019-11-27] MEDS: INSULIN GLARGINE, HUMAN 1 UNIT/0.01 ML SQ SCH (20:53)
--- NOTE | 2019-11-27 21:50 | Internal Med Progress Note ---
SUBJECTIVE Subjective Patient information: Note initiated : 11/27/19 at 9:48 pm Service Date, if different from initiated Date: [] Patient: Bobbi Murphy 64 y/o F admitted on 11/22/19 for blood sugar. Chief Complaint: [ She actually had nearly an identical presentation in September 2018 she was found obtunded with a fever. She was started on broad-spectrum Bactrim antibiotics including acyclovir and did have a elevated lactate with the increase in her repeat lactate as well [place]. Lumbar puncture was ordered but no seen results that were ever done. Her septic picture is attributed to left lower extremity infection which she has had before and what I suspect is the current source. Does not report that her says she was a DNR but I have not talked to the and unable to gather accurate history from the given her altered mental state. She is on significant number of medications that may be contributing to her altered mental state. unAble to gather review of systems 11/22 Patient was on Precedex drip last night for agitation and confusion concern for risk of pulling out lines. On drip this morning but does respond to voice but otherwise does not follow commands. Lactic acid improving, leukocytosis improving. Fever curve improving. Good urine output. 11/23 She was weaned down on the Precedex last night but then became agitated and started pulling at lines. Started back up in the starting to wean again today. This morning she is more alert cooperative and mentation is improving. Cytosis continues to improve, no bandemia today. Renal function good *Patient was supposed to see Dr. Huber but has not yet. Patient was started on Sinemet empirically has it was difficult to get patient in to see the neurologist. 11/24 Feeling better today. Sitting up eating breakfast. Mentation resolved. Did have diarrhea last night C. difficile negative. 11/25 Mentation seems to be better she is alert oriented able to recognize people Continuing broad-spectrum antibiotic and added gram-positive coverage I will continue the vancomycin with her history of multiple hospital stay Ordered ultrasound of the lower extremity to look for any DVT 11/26 Patient is more alert and oriented today We held the pain medications yesterday Discussed with the patient's and patient in detail about the complications of narcotic making her drowsy and collapsed couple times I strongly recommend the patient to cut back on the narcotics and consider the pain management on a day-to-day basis then keeping a persistent dose all the time Added vancomycin in addition to cefepime for the cellulitis Worsening renal failure and started on IV fluid resuscitation and will monitor her renal status Review of system Constitutional-complaining of leg pain, Head and neck-no headache no oral cavity symptoms no ear pain Respiratory-no shortness of breath diminished lung sounds Cardiac-denies any chest pain or palpitation Abdomen-distended no diarrhea Neuro-no focal neuro deficit no headache she appears to be drowsy Psychiatry-no anxiety no depression ] Interval history: Narrative: Constitutional Vitals: Vital Signs Temp Pulse Resp BP Pulse Ox 98.5 F 68 20 157/62 94 11/27/19 21:38 11/27/19 18:50 11/27/19 21:38 11/27/19 21:38 11/27/19 21:38 Period Temp Pulse Resp BP Sys/Nichols Pulse Ox Last 24 Hr 98.2 F-98.8 F 64-86 12-20 99-159/46-71 93-98 Intake and Output 11/27/19 11/27/19 11/27/19 05:59 13:59 21:59 Intake Total 800 1697 120 Output Total 600 3 300 Balance 200 1694 -180 Weight 350 lb 6.4 oz Patient Weight 11/28/19 05:59 Weight 350 lb 6.4 oz Intake & Output: Intake & Output 11/27/19 11/27/19 11/27/19 05:59 13:59 21:59 Intake Total 800 1697 120 Output Total 600 3 300 Balance 200 1694 -180 Weight 350 lb 6.4 oz Intake: IV 500 977 Sodium Chloride 0.9% 1,000 ml @ 912 100 mls/hr IV .Q10H [facility] Rx#: [id number] Vancomycin 1,500 mg In Sodium 500 Chloride 0.9% 500 ml @ 333.3 mls/hr IV ONCE ONE Rx#: [id number] Oral 300 720 120 Output: Void Amount 400 300 # of times incontinent of urine 3 Emesis 200 Other: Meal Lunch Percent of Meal Consumed 50% Urine Appearance Cloudy Clear Urine Color Bright Yellow Dark Yellow Urine Odor Strong General appearance: no acute distress and obese Head Head exam: Present atraumatic and normal inspection Eye Eye exam: Present EOMI; Absent periorbital swelling and scleral icterus ENT ENT exam: Present normal exam, normal external ear exam and normal oropharynx Neck Neck exam: Present full ROM and normal inspection; Absent lymphadenopathy and tenderness Respiratory Respiratory exam: Present decreased breath sounds; Absent accessory muscle use, respiratory distress and wheezes Cardiovascular Cardiovascular exam: Present normal rate and rhythm; Absent bradycardia, clicks and +S3 GI/Abdominal GI/Abdominal exam: Present normal bowel sounds, soft and distended Extremities Exam Extremities exam: Present calf tenderness and pedal edema; Absent Monica's sign Additional comments: Cellulitis improving Neurological Exam Neurological exam: Present alert and oriented X3; Absent motor sensory deficit Psychiatric Psychiatric exam: Absent agitated, anxious and depressed OBJ DATA Labs CBC & Chem 7: 11/27/19 05:30 11/27/19 05:30 Labs: Abnormal Lab Results 11/27/19 11/27/19 11/26/19 05:30 05:30 05:55 Hgb 10.3 L Hct 32.7 L MPV 11.5 H [place] # (Auto) 1.12 H Carbon Dioxide 21 L Anion Gap 7.0 L BUN 40 H 24 H Creatinine 2.1 H 1.9 H Glucose 169 H 176 H Calcium 8.1 L 7.8 L Phosphorus 4.6 H GGT 109 H C-Reactive Protein Albumin 2.2 L 2.2 L Globulin 3.8 H Albumin/Globulin Ratio 0.6 L 0.6 L Triglycerides 172 H 11/25/19 11/25/19 11/25/19 09:35 09:35 09:35 Hgb Hct MPV 11.5 H [place] # (Auto) Carbon Dioxide Anion Gap BUN 31 H Creatinine 1.5 H Glucose 185 H Calcium 8.3 L Phosphorus GGT 125 H C-Reactive Protein 19.5 H Albumin 2.4 L Globulin 4.1 H Albumin/Globulin Ratio 0.6 L Triglycerides 195 H Meds: Medications Acetaminophen (Tylenol) 650 mg ND Q4-6HP PRN PRN Reason: PAIN/FEVER > 101 Amiodarone HCl (Cordarone) 200 mg PO [facility] Last Admin: 11/27/19 08:47 Dose: 200 mg Documented by: Apixaban (Eliquis) 5 mg PO BID [facility] Last Admin: 11/27/19 20:08 Dose: 5 mg Documented by: Aspirin (Aspirin) 81 mg PO DAILY [facility] Last Admin: 11/27/19 08:48 Dose: 81 mg Documented by: Bisacodyl (Dulcolax) 10 mg ND Q2-3DAYS PRN PRN Reason: Constipation Carbidopa/Levodopa (Sinemet 10/100) 1 tab PO BID [facility] Last Admin: 11/27/19 20:08 Dose: 1 tab Documented by: Cefepime HCl (Maxipime) 2 gm IV Q12H [facility]; Protocol Last Admin: 11/27/19 20:12 Dose: 2 gm Documented by: Cilostazol (Pletal) 200 mg PO BID [facility] Last Admin: 11/27/19 20:09 Dose: 200 mg Documented by: Diagnostic Test (Pha) (Accu-Chek) 1 each FS ACHS [facility] Last Admin: 11/27/19 20:34 Dose: 1 each Documented by: Docusate Sodium (Colace) 100 mg PO BID [facility] Last Admin: 11/27/19 20:34 Dose: Not Given Documented by: Famotidine (Pepcid) 20 mg IV Q12 [facility] Last Admin: 11/27/19 20:09 Dose: 20 mg Documented by: Hydralazine HCl (Apresoline) 0 mg IV Q2HP PRN PRN Reason: Hypertension Acetaminophen (Ofirmev) 650 mg in 65 mls @ 130 mls/hr IV Q6HP PRN; Protocol PRN Reason: PAIN/FEVER > 101 Last Admin: 11/27/19 21:01 Dose: 200 mls/hr Documented by: Sodium Chloride (Sodium Chloride 0.9%) 1,000 mls @ 100 mls/hr IV .Q10H [facility] Last Admin: 11/27/19 15:57 Dose: Not Given Documented by: Vancomycin HCl 1,500 mg/ (Sodium Chloride) 500 mls @ 333.3 mls/hr IV DAILY [facility] Last Admin: 11/27/19 13:13 Dose: 333.3 mls/hr Documented by: Insulin Glargine (Lantus) 34 unit SQ HS [facility] Last Admin: 11/27/19 20:53 Dose: 34 units Documented by: Insulin Human Lispro (Humalog) 0 unit SQ ACHS [facility]; Protocol Last Admin: 11/27/19 20:53 Dose: 2 units Documented by: Lactobacillus Rhamnosus (Culturelle) 1 cap PO BID [facility] Last Admin: 11/27/19 20:08 Dose: 1 cap Documented by: Loperamide HCl (Imodium) 2 mg PO PRN PRN PRN Reason: Diarrhea Metoclopramide HCl (Reglan) 10 mg IV Q6HP PRN PRN Reason: nausea Metoprolol Succinate (Toprol Xl) 100 mg PO DAILY [facility] Last Admin: 11/27/19 13:32 Dose: 100 mg Documented by: Ondansetron HCl (Zofran) 4 mg IV Q4-6HP PRN PRN Reason: Nausea And Vomiting Last Admin: 11/25/19 22:29 Dose: 4 mg Documented by: Pregabalin (Lyrica) 50 mg PO BID [facility] Last Admin: 11/27/19 20:09 Dose: 50 mg Documented by: Senna (Senokot) 1 tab PO [facility] PRN PRN Reason: Constipation Sodium Chloride (Saline Flush) 10 ml IV Q8 [facility] Last Admin: 11/27/19 20:53 Dose: 10 ml Documented by: Vancomycin HCl (Vancomycin Per Pharmacy) 1 order IV UD [facility]; Protocol Venlafaxine HCl (Effexor Xr) 150 mg PO DAILY [facility] Last Admin: 11/27/19 08:47 Dose: 150 mg Documented by: A/P Narrative A/P Narrative: Narrative: Sepsis secondary to left lower extremity cellulitis-improved Sepsis improved Continued cefepime and added vancomycin as a cellulitis not improving Blood cultures so far has been negative Lactic acidosis-improved Left lower extremity cellulitis CT of the leg did not show any evidence of compartment syndrome or Continued cefepime and added vancomycin as the cellulitis did not improve significantly Venous Doppler of the bilateral lower extremity-negative for any DVT Acute encephalopathy due to polypharmacy Improved Discontinued her narcotics and she is more awake and alert today Discussed with the patient's family extensively about the complications of narcotics and this could be life-threatening for her Strongly recommend the patient to cut back on the narcotics and consider day-to-day basis management of pain then keeping on same dose Acute renal failure probably due to hypovolemia Underlying CKD Creatinine increased up to 2.0 and patient was poor oral intake due to encephalopathy Started on IV fluid NS 100 mils per hour Monitoring Type 2 diabetes Takes insulin at home Monitor sliding scale insulin Paroxysmal atrial fibrillation Continue amiodarone and apixaban Depression anxiety Continued home medications Morbid obesity Peripheral vascular disease Continued aspirin and cilostazol DVT prophylaxis-she is on apixaban Time Spent With Patient Time: Total time spent is greater than 50% in coordination of care (as documented) at patient's floor/unit and/or counseling patient:
[2019-11-28] MEDS: 0.9 % SODIUM CHLORIDE 1,000 ML IV SCH ×2 (02:39→18:32)
[2019-11-28] MEDS: 0.9 % SODIUM CHLORIDE 10 ML SYRINGE IV SCH ×3 (05:30→20:57)
[2019-11-28 06:55] LABS: Basophils # (Auto) 0.11 K/mcL (0.00-0.30); Eosinophils # (Auto) 0.64 K/mcL (0.00-0.70); Eosinophils % (Auto) 5.9 % (0.0-7.0); Granulocytes % (Auto) 58.9 % (38.0-78.0); Hematocrit 31.8 % (34.1-44.9); Hemoglobin 10.2 g/dL (11.2-15.7); Lymphocytes # (Auto) 2.71 K/mcL (1.50-4.80); Mean Cell Volume 87.6 fL (80.0-100.0); Mean Corpuscular HGB Conc 32.1 g/dL (31.0-36.0); Mean Platelet Volume 11.4 fL (7.4-10.4); Monocytes % (Auto) 9.2 % (1.0-12.0); Platelet Count 249 K/mcL (140-440); RBC 3.63 M/mcL (3.59-5.38); Red Cell Distribution Width 14.3 % (11.5-14.5); WBC 10.8 K/mcL (4.50-11.00)
[2019-11-28 07:11] LABS: ALT/SGPT 9 U/l (0-40); AST/SGOT 18 U/l (0-37); Albumin 2.3 gm/dL (3.2-5.2); Albumin/Globulin Ratio 0.7 (1.0-2.3); Alkaline Phosphatase 94 U/L (39-117); Bilirubin,Total 0.2 mg/dL (0.0-1.0); Calcium 8.4 mg/dl (8.6-10.4); Carbon Dioxide 24 mmol/L (22-30); Chloride 108 mmol/L (96-108); Globulin 3.5 gm/dL (2.2-3.7); Glucose 168 mg/dL (70-105)
[2019-11-28 07:13] LABS: Blood Urea Nitrogen 26 mg/dl (8-23); Glomerular Filtration Rate 37
[2019-11-28] MEDS: AMIODARONE HCL 200 MG TABLET PO SCH (08:01)
[2019-11-28] MEDS: INSULIN LISPRO 1 UNIT/0.01 ML UNIT SQ SCH ×4 (08:02→20:54)
[2019-11-28] MEDS: DOCUSATE SODIUM 100 MG CAPSULE PO SCH ×2 (08:03→20:56)
[2019-11-28] MEDS: FAMOTIDINE/PF 20 MG/2 ML VIAL IV SCH ×2 (08:14→20:54)
[2019-11-28] MEDS: ASPIRIN 81 MG TAB.CHEW PO SCH (08:17)
[2019-11-28] MEDS: LACTOBACILLUS 1 CAPSULE PO SCH ×2 (08:17→20:56)
[2019-11-28] MEDS: VENLAFAXINE 150 MG CAP.XL.24H PO SCH (08:18)
[2019-11-28] MEDS: APIXABAN 5 MG TABLET PO SCH ×2 (08:19→20:57)
[2019-11-28] MEDS: PREGABALIN 25 MG CAPSULE PO SCH ×2 (08:19→21:05)
[2019-11-28] MEDS: CILOSTAZOL 100 MG TABLET PO SCH ×2 (08:20→20:56)
[2019-11-28] MEDS: CARBIDOPA/LEVODOPA 10/100 TABLET PO SCH ×2 (08:20→20:57)
[2019-11-28] MEDS: METOPROLOL SUCCINATE 50 MG TAB.XL.24H PO SCH (08:21)
[2019-11-28] MEDS: CEFEPIME 2 GM VIAL IV SCH ×2 (08:31→20:54)
[2019-11-28] MEDS: VANCOMYCIN 1,500 MG in 0.9 % SODIUM CHLORIDE 500 ML IV SCH (11:43)
--- NOTE | 2019-11-28 13:16 | Internal Med Progress Note ---
SUBJECTIVE Subjective Patient information: Note initiated : 11/28/19 at 1:15 pm Service Date, if different from initiated Date: [] Patient: Bobbi Murphy 64 y/o F admitted on 11/22/19 for blood sugar. Chief Complaint: [] She actually had nearly an identical presentation in September 2018 she was found obtunded with a fever. She was started on broad-spectrum Bactrim antibiotics including acyclovir and did have a elevated lactate with the increase in her repeat lactate as well [place]. Lumbar puncture was ordered but no seen results that were ever done. Her septic picture is attributed to left lower extremity infection which she has had before and what I suspect is the current source. Does not report that her says she was a DNR but I have not talked to the and unable to gather accurate history from the given her altered mental state. She is on significant number of medications that may be contributing to her altered mental state. unAble to gather review of systems 11/22 Patient was on Precedex drip last night for agitation and confusion concern for risk of pulling out lines. On drip this morning but does respond to voice but otherwise does not follow commands. Lactic acid improving, leukocytosis improving. Fever curve improving. Good urine output. 11/23 She was weaned down on the Precedex last night but then became agitated and started pulling at lines. Started back up in the starting to wean again today. This morning she is more alert cooperative and mentation is improving. Cytosis continues to improve, no bandemia today. Renal function good *Patient was supposed to see Dr. Huber but has not yet. Patient was started on Sinemet empirically has it was difficult to get patient in to see the neurologist. 11/24 Feeling better today. Sitting up eating breakfast. Mentation resolved. Did have diarrhea last night C. difficile negative. 11/25 Mentation seems to be better she is alert oriented able to recognize people Continuing broad-spectrum antibiotic and added gram-positive coverage I will continue the vancomycin with her history of multiple hospital stay Ordered ultrasound of the lower extremity to look for any DVT 11/26 Patient is more alert and oriented today We held the pain medications yesterday Discussed with the patient's and patient in detail about the complications of narcotic making her drowsy and collapsed couple times I strongly recommend the patient to cut back on the narcotics and consider the pain management on a day-to-day basis then keeping a persistent dose all the time Added vancomycin in addition to cefepime for the cellulitis Worsening renal failure and started on IV fluid resuscitation and will monitor her renal status 11/27 Her creatinine improving Patient appears to be drowsy this morning Otherwise no symptoms overnight Cellulitis seems to be Review of system Constitutional-complaining of leg pain, Head and neck-no headache no oral cavity symptoms no ear pain Respiratory-no shortness of breath diminished lung sounds Cardiac-denies any chest pain or palpitation Abdomen-distended no diarrhea Neuro-no focal neuro deficit no headache she appears to be drowsy Psychiatry-no anxiety no depression Interval history: Narrative: Constitutional Vitals: Vital Signs Temp Pulse Resp BP Pulse Ox 98.3 F 70 19 198/83 96 11/28/19 13:00 11/28/19 13:00 11/28/19 13:00 11/28/19 13:00 11/28/19 13:00 Period Temp Pulse Resp BP Sys/Nichols Pulse Ox Last 24 Hr 98.3 F-98.8 F 62-70 16-20 122-198/50-83 93-98 Intake and Output 11/27/19 11/28/19 11/28/19 21:59 05:59 13:59 Intake Total 1885 545 Output Total 1000 1050 986 Balance 885 -505 -986 Weight 350 lb 6.4 oz Intake & Output: Intake & Output 11/27/19 11/28/19 11/28/19 21:59 05:59 13:59 Intake Total 1885 545 Output Total 1000 1050 986 Balance 885 -505 -986 Weight 350 lb 6.4 oz Intake: Nourishment/Supplement quantity 200 (ml) IV 1565 Sodium Chloride 0.9% 1,000 ml @ 1000 100 mls/hr IV .Q10H [facility] Rx#: [id number] Vancomycin 1,500 mg In Sodium 500 Chloride 0.9% 500 ml @ 333.3 mls/hr IV DAILY [facility] Rx#: [id number] Oral 120 545 Output: Void Amount 1000 1050 725 # of times incontinent of urine 1 Urine/Stool Mix 260 Other: Meal Dinner Breakfast Percent of Meal Consumed 50% 75% Feeding Ability Assist with Tray Set Up Independent Nourishment/Supplement name Glucerna Urine Appearance Clear Clear Clear Urine Color Dark Yellow Bright Yellow Light Ashwini Urine Odor Normal Normal Stool Size Large Small Stool Color Brown Brown Stool Consistency Soft Soft Formed # Voids 1 1 # Bowel Movements 1 General appearance: mild distress and morbidly obese Head Head exam: Present atraumatic, normal inspection and normocephalic Eye Eye exam: Present EOMI; Absent conjunctival injection, nystagmus, periorbital swelling and scleral icterus ENT ENT exam: Present mucous membranes moist and normal oropharynx Neck Neck exam: Present normal inspection; Absent tenderness Respiratory Respiratory exam: Present decreased breath sounds; Absent accessory muscle use and respiratory distress Cardiovascular Cardiovascular exam: Absent bradycardia, JVD, +S3 and tachycardia GI/Abdominal GI/Abdominal exam: Present diminished bowel sounds and distended Neurological Exam Neurological exam: Present alert and oriented X3; Absent motor sensory deficit Psychiatric Psychiatric exam: Absent agitated, anxious and depressed OBJ DATA Labs CBC & Chem 7: 11/28/19 05:30 11/28/19 05:30 Labs: Abnormal Lab Results 11/28/19 11/28/19 11/27/19 05:30 05:30 05:30 Hgb 10.2 L Hct 31.8 L MPV 11.4 H [place] # (Auto) 1.00 H Carbon Dioxide Anion Gap 5.0 L 7.0 L BUN 26 H 40 H Creatinine 1.5 H 2.1 H Glucose 168 H 169 H Calcium 8.4 L 8.1 L Phosphorus GGT Total Protein 5.8 L Albumin 2.3 L 2.2 L Globulin 3.8 H Albumin/Globulin Ratio 0.7 L 0.6 L Triglycerides 11/27/19 11/26/19 05:30 05:55 Hgb 10.3 L Hct 32.7 L MPV 11.5 H [place] # (Auto) 1.12 H Carbon Dioxide 21 L Anion Gap BUN 24 H Creatinine 1.9 H Glucose 176 H Calcium 7.8 L Phosphorus 4.6 H GGT 109 H Total Protein Albumin 2.2 L Globulin Albumin/Globulin Ratio 0.6 L Triglycerides 172 H Meds: Medications Acetaminophen (Tylenol) 650 mg UT Q4-6HP PRN PRN Reason: PAIN/FEVER > 101 Amiodarone HCl (Cordarone) 200 mg PO [facility] Last Admin: 11/28/19 08:01 Dose: 200 mg Documented by: Apixaban (Eliquis) 5 mg PO BID [facility] Last Admin: 11/28/19 08:19 Dose: 5 mg Documented by: Aspirin (Aspirin) 81 mg PO DAILY [facility] Last Admin: 11/28/19 08:17 Dose: 81 mg Documented by: Bisacodyl (Dulcolax) 10 mg UT Q2-3DAYS PRN PRN Reason: Constipation Carbidopa/Levodopa (Sinemet 10/100) 1 tab PO BID [facility] Last Admin: 11/28/19 08:20 Dose: 1 tab Documented by: Cefepime HCl (Maxipime) 2 gm IV Q12H [facility]; Protocol Last Admin: 11/28/19 08:31 Dose: 2 gm Documented by: Cilostazol (Pletal) 200 mg PO BID [facility] Last Admin: 11/28/19 08:20 Dose: 200 mg Documented by: Diagnostic Test (Pha) (Accu-Chek) 1 each FS [facility] Last Admin: 11/28/19 11:58 Dose: 1 each Documented by: Docusate Sodium (Colace) 100 mg PO BID [facility] Last Admin: 11/28/19 08:03 Dose: Not Given Documented by: Famotidine (Pepcid) 20 mg IV Q12 [facility] Last Admin: 11/28/19 08:14 Dose: 20 mg Documented by: Hydralazine HCl (Apresoline) 0 mg IV Q2HP PRN PRN Reason: Hypertension Acetaminophen (Ofirmev) 650 mg in 65 mls @ 130 mls/hr IV Q6HP [facility]; Protocol PRN Reason: PAIN/FEVER > 101 Last Infusion: 11/27/19 21:25 Dose: Infused Documented by: Sodium Chloride (Sodium Chloride 0.9%) 1,000 mls @ 100 mls/hr IV .Q10H [facility] Last Admin: 11/28/19 02:39 Dose: Not Given Documented by: Vancomycin HCl 1,500 mg/ (Sodium Chloride) 500 mls @ 333.3 mls/hr IV DAILY [facility] Last Admin: 11/28/19 11:43 Dose: 333.3 mls/hr Documented by: Insulin Glargine (Lantus) 34 unit SQ HS [facility] Last Admin: 11/27/19 20:53 Dose: 34 units Documented by: Insulin Human Lispro (Humalog) 0 unit SQ [facility]; Protocol Last Admin: 11/28/19 12:04 Dose: 2 units Documented by: Lactobacillus Rhamnosus (Culturelle) 1 cap PO BID [facility] Last Admin: 11/28/19 08:17 Dose: 1 cap Documented by: Loperamide HCl (Imodium) 2 mg PO PRN PRN PRN Reason: Diarrhea Metoclopramide HCl (Reglan) 10 mg IV Q6HP PRN PRN Reason: nausea Metoprolol Succinate (Toprol Xl) 100 mg PO DAILY [facility] Last Admin: 11/28/19 08:21 Dose: 100 mg Documented by: Ondansetron HCl (Zofran) 4 mg IV Q4-6HP PRN PRN Reason: Nausea And Vomiting Last Admin: 11/25/19 22:29 Dose: 4 mg Documented by: Pregabalin (Lyrica) 50 mg PO BID [facility] Last Admin: 11/28/19 08:19 Dose: 50 mg Documented by: Senna (Senokot) 1 tab PO [facility] PRN PRN Reason: Constipation Sodium Chloride (Saline Flush) 10 ml IV Q8 [facility] Last Admin: 11/28/19 05:30 Dose: 10 ml Documented by: Vancomycin HCl (Vancomycin Per Pharmacy) [address] [facility]; Protocol Venlafaxine HCl (Effexor Xr) 150 mg PO DAILY [facility] Last Admin: 11/28/19 08:18 Dose: 150 mg Documented by: A/P Narrative A/P Narrative: Narrative: Sepsis secondary to left lower extremity cellulitis-improved Sepsis improved Continued cefepime and added vancomycin as a cellulitis not improving Blood cultures so far has been negative Vancomycin target trough level 15-20 Lactic acidosis-improved Left lower extremity cellulitis CT of the leg did not show any evidence of compartment syndrome or Continued cefepime and added vancomycin as the cellulitis did not improve s ignificantly Venous Doppler of the bilateral lower extremity-negative for any DVT Acute encephalopathy due to polypharmacy Improved Discontinued her narcotics and she is more awake and alert today Discussed with the patient's family extensively about the complications of narcotics and this could be life-threatening for her Strongly recommend the patient to cut back on the narcotics and consider day-to-day basis management of pain then keeping on same dose Acute renal failure probably due to hypovolemia Underlying CKD Creatinine increased up to 2.0 and patient was poor oral intake due to encephalopathy Started on IV fluid NS 100 mils per hour Monitoring Creatinine improved Type 2 diabetes Takes insulin at home Monitor sliding scale insulin Paroxysmal atrial fibrillation Continue amiodarone and apixaban Depression anxiety Continued home medications Morbid obesity Peripheral vascular disease Continued aspirin and cilostazol DVT prophylaxis-she is on apixaban Time Spent With Patient Time: Total time spent is greater than 50% in coordination of care (as documented) at patient's floor/unit and/or counseling patient:
[2019-11-28] MEDS: hydrALAZINE 20 MG/ML VIAL IV PRN ×3 (13:23→19:31)
[2019-11-28] MEDS: LOPERAMIDE 2 MG CAPSULE PO PRN ×2 (17:11→19:33)
[2019-11-28] MEDS: ACETAMINOPHEN 650 MG/65 ML BOTTLE IV PRN (19:31)
[2019-11-28] MEDS: INSULIN GLARGINE, HUMAN 1 UNIT/0.01 ML SQ SCH (20:55)
[2019-11-28] MEDS: ONDANSETRON 4 MG/2 ML VIAL IV PRN (22:55)
[2019-11-29] MEDS: 0.9 % SODIUM CHLORIDE 1,000 ML IV SCH ×2 (02:18→10:06)
[2019-11-29] MEDS: ACETAMINOPHEN 650 MG/65 ML BOTTLE IV PRN ×3 (02:21→19:20)
[2019-11-29 07:16] LABS: ALT/SGPT 9 U/l (0-40); AST/SGOT 17 U/l (0-37); Albumin 2.5 gm/dL (3.2-5.2); Albumin/Globulin Ratio 0.7 (1.0-2.3); Alkaline Phosphatase 85 U/L (39-117); Bilirubin,Total 0.4 mg/dL (0.0-1.0); Calcium 8.7 mg/dl (8.6-10.4); Carbon Dioxide 25 mmol/L (22-30); Chloride 108 mmol/L (96-108); Globulin 3.8 gm/dL (2.2-3.7); Glucose 130 mg/dL (70-105)
[2019-11-29 07:19] LABS: Basophils # (Auto) 0.09 K/mcL (0.00-0.30); Basophils % (Auto) 0.8 % (0.0-2.0); Eosinophils # (Auto) 0.27 K/mcL (0.00-0.70); Eosinophils % (Auto) 2.3 % (0.0-7.0); Granulocytes % (Auto) 70.5 % (38.0-78.0); Hematocrit 32.9 % (34.1-44.9); Hemoglobin 10.6 g/dL (11.2-15.7); Lymphocytes # (Auto) 2.16 K/mcL (1.50-4.80); Lymphocytes % (Auto) 18.1 % (15.5-49.0); Mean Cell Volume 86.4 fL (80.0-100.0); Mean Corpuscular HGB Conc 32.2 g/dL (31.0-36.0); Mean Platelet Volume 11.1 fL (7.4-10.4); Monocytes # (Auto) 0.99 K/mcL (0.10-0.90); Monocytes % (Auto) 8.3 % (1.0-12.0); Platelet Count 306 K/mcL (140-440); RBC 3.81 M/mcL (3.59-5.38); Red Cell Distribution Width 14.5 % (11.5-14.5); WBC 11.9 K/mcL (4.50-11.00)
[2019-11-29 07:22] LABS: Blood Urea Nitrogen 14 mg/dl (8-23); Glomerular Filtration Rate 60
[2019-11-29] MEDS: 0.9 % SODIUM CHLORIDE 10 ML SYRINGE IV SCH ×3 (07:32→21:09)
[2019-11-29] MEDS: INSULIN LISPRO 1 UNIT/0.01 ML UNIT SQ SCH ×4 (07:35→20:58)
[2019-11-29] MEDS: AMIODARONE HCL 200 MG TABLET PO SCH (07:35)
[2019-11-29] MEDS: hydrALAZINE 20 MG/ML VIAL IV PRN ×4 (07:48→19:21)
[2019-11-29] MEDS: DOCUSATE SODIUM 100 MG CAPSULE PO SCH ×2 (08:47→20:58)
[2019-11-29] MEDS: FAMOTIDINE/PF 20 MG/2 ML VIAL IV SCH ×2 (08:56→21:09)
[2019-11-29] MEDS: ONDANSETRON 4 MG/2 ML VIAL IV PRN ×2 (09:03→19:22)
[2019-11-29] MEDS: VENLAFAXINE 150 MG CAP.XL.24H PO SCH (09:20)
[2019-11-29] MEDS: PREGABALIN 25 MG CAPSULE PO SCH ×2 (09:21→21:14)
[2019-11-29] MEDS: CARBIDOPA/LEVODOPA 10/100 TABLET PO SCH ×2 (09:21→21:15)
[2019-11-29] MEDS: LACTOBACILLUS 1 CAPSULE PO SCH ×2 (09:21→21:15)
[2019-11-29] MEDS: CILOSTAZOL 100 MG TABLET PO SCH ×2 (09:22→21:14)
[2019-11-29] MEDS: APIXABAN 5 MG TABLET PO SCH ×2 (09:22→21:15)
[2019-11-29] MEDS: ASPIRIN 81 MG TAB.CHEW PO SCH (09:22)
[2019-11-29] MEDS: METOPROLOL SUCCINATE 50 MG TAB.XL.24H PO SCH (09:28)
[2019-11-29] MEDS: CEFEPIME 2 GM VIAL IV SCH ×2 (10:12→21:10)
[2019-11-29] MEDS: VANCOMYCIN 1,500 MG in 0.9 % SODIUM CHLORIDE 500 ML IV SCH (10:16)
[2019-11-29] MEDS: LOPERAMIDE 2 MG CAPSULE PO PRN ×2 (18:51→21:48)
[2019-11-29] MEDS: ALBUTEROL SULFATE 200 PUFF INHALER INH PRN (18:59)
[2019-11-29] MEDS: INSULIN GLARGINE, HUMAN 1 UNIT/0.01 ML SQ SCH (21:10)
--- NOTE | 2019-11-29 23:09 | Internal Med Progress Note ---
SUBJECTIVE Subjective Patient information: Note initiated : 11/29/19 at 11:08 pm Service Date, if different from initiated Date: [] Patient: Bobbi Murphy 64 y/o F admitted on 11/22/19 for blood sugar. Chief Complaint: She actually had nearly an identical presentation in September 2018 she was found obtunded with a fever. She was started on broad-spectrum Bactrim antibiotics including acyclovir and did have a elevated lactate with the increase in her repeat lactate as well [place]. Lumbar puncture was ordered but no seen results that were ever done. Her septic picture is attributed to left lower extremity infection which she has had before and what I suspect is the current source. Does not report that her says she was a DNR but I have not talked to the and unable to gather accurate history from the given her altered mental state. She is on significant number of medications that may be contributing to her altered mental state. unAble to gather review of systems 11/22 Patient was on Precedex drip last night for agitation and confusion concern for risk of pulling out lines. On drip this morning but does respond to voice but otherwise does not follow commands. Lactic acid improving, leukocytosis improving. Fever curve improving. Good urine output. 11/23 She was weaned down on the Precedex last night but then became agitated and started pulling at lines. Started back up in the starting to wean again today. This morning she is more alert cooperative and mentation is improving. Cytosis continues to improve, no bandemia today. Renal function good *Patient was supposed to see Dr. Huber but has not yet. Patient was started on Sinemet empirically has it was difficult to get patient in to see the neurologist. 11/24 Feeling better today. Sitting up eating breakfast. Mentation resolved. Did have diarrhea last night C. difficile negative. 11/25 Mentation seems to be better she is alert oriented able to recognize people Continuing broad-spectrum antibiotic and added gram-positive coverage I will continue the vancomycin with her history of multiple hospital stay Ordered ultrasound of the lower extremity to look for any DVT 11/26 Patient is more alert and oriented today We held the pain medications yesterday Discussed with the patient's and patient in detail about the complications of narcotic making her drowsy and collapsed couple times I strongly recommend the patient to cut back on the narcotics and consider the pain management on a day-to-day basis then keeping a persistent dose all the time Added vancomycin in addition to cefepime for the cellulitis Worsening renal failure and started on IV fluid resuscitation and will monitor her renal status 11/27 Her creatinine improving Patient appears to be drowsy this morning Otherwise no symptoms overnight Cellulitis seems to be 11/28 Cellulitis seems to be improving Creatinine normalized Continue vancomycin and cefepime Review of system Constitutional-complaining of leg pain, Head and neck-no headache no oral cavity symptoms no ear pain Respiratory-no shortness of breath diminished lung sounds Cardiac-denies any chest pain or palpitation Abdomen-distended no diarrhea Neuro-drowsiness improved Psychiatry-no anxiety no depression Interval history: Narrative: Constitutional Vitals: Vital Signs Temp Pulse Resp BP Pulse Ox 97.9 F 72 20 178/70 96 11/29/19 19:00 11/29/19 19:00 11/29/19 19:00 11/29/19 19:00 11/29/19 19:00 Period Temp Pulse Resp BP Sys/Nichols Pulse Ox Last 24 Hr 97.9 F-99.5 F 70-83 18-20 162-199/64-75 93-98 Intake and Output 11/29/19 11/29/19 11/30/19 13:59 21:59 05:59 Intake Total 565 500 Output Total 625 250 Balance -60 250 Weight 332 lb 9.6 oz Patient Weight 11/30/19 05:59 Weight 332 lb 9.6 oz Intake & Output: Intake & Output 11/29/19 11/29/19 11/30/19 13:59 21:59 05:59 Intake Total 565 500 Output Total 625 250 Balance -60 250 Weight 332 lb 9.6 oz Intake: IV 565 Vancomycin 1,500 mg In Sodium 500 Chloride 0.9% 500 ml @ 333.3 mls/hr IV DAILY [facility] Rx#: [id number] Oral 500 Output: Void Amount 225 Urine/Stool Mix 400 250 Other: Meal Breakfast Percent of Meal Consumed 0% Feeding Ability Independent Urine Appearance Clear Urine Color Straw Urine Odor Normal Stool Size Small Moderate Stool Color Brown Brown Stool Consistency Formed Loose General appearance: cooperative and morbidly obese Head Head exam: Present atraumatic, normal inspection and normocephalic Eye Eye exam: Present EOMI; Absent periorbital swelling and scleral icterus Neck Neck exam: Present full ROM; Absent lymphadenopathy, tenderness and thyromegaly Respiratory Respiratory exam: Absent rales, respiratory distress and wheezes Cardiovascular Cardiovascular exam: Absent bradycardia, JVD, +S3 and tachycardia GI/Abdominal GI/Abdominal exam: Present normal bowel sounds and distended; Absent pulsatile mass and tenderness Neurological Exam Neurological exam: Present alert and oriented X3; Absent motor sensory deficit Psychiatric Psychiatric exam: Absent agitated, anxious and depressed OBJ DATA Labs CBC & Chem 7: 11/29/19 05:20 11/29/19 05:20 Labs: Abnormal Lab Results 11/29/19 11/29/19 11/28/19 05:20 05:20 05:30 WBC 11.9 H Hgb 10.6 L Hct 32.9 L MPV 11.1 H Gran # 8.40 H [place] # (Auto) 0.99 H Anion Gap 5.0 L BUN 26 H Creatinine 1.5 H Glucose 130 H 168 H Calcium 8.4 L Total Protein 5.8 L Albumin 2.5 L 2.3 L Globulin 3.8 H Albumin/Globulin Ratio 0.7 L 0.7 L 11/28/19 11/27/19 11/27/19 05:30 05:30 05:30 WBC Hgb 10.2 L 10.3 L Hct 31.8 L 32.7 L MPV 11.4 H 11.5 H Gran # [place] # (Auto) 1.00 H 1.12 H Anion Gap 7.0 L BUN 40 H Creatinine 2.1 H Glucose 169 H Calcium 8.1 L Total Protein Albumin 2.2 L Globulin 3.8 H Albumin/Globulin Ratio 0.6 L Meds: Medications Acetaminophen (Tylenol) 650 mg MD Q4-6HP PRN PRN Reason: PAIN/FEVER > 101 Albuterol Sulfate (Ventolin) 2 puff INH Q4HP PRN PRN Reason: Shortness Of Breath Last Admin: 11/29/19 18:59 Dose: 2 puff Documented by: Amiodarone HCl (Cordarone) 200 mg PO [facility] Last Admin: 11/29/19 07:35 Dose: 200 mg Documented by: Apixaban (Eliquis) 5 mg PO BID [facility] Last Admin: 11/29/19 21:15 Dose: 5 mg Documented by: Aspirin (Aspirin) 81 mg PO DAILY [facility] Last Admin: 11/29/19 09:22 Dose: 81 mg Documented by: Bisacodyl (Dulcolax) 10 mg MD Q2-3DAYS PRN PRN Reason: Constipation Carbidopa/Levodopa (Sinemet 10/100) 1 tab PO BID [facility] Last Admin: 11/29/19 21:15 Dose: 1 tab Documented by: Cefepime HCl (Maxipime) 2 gm IV Q12H [facility]; Protocol Last Admin: 11/29/19 21:10 Dose: 2 gm Documented by: Cilostazol (Pletal) 200 mg PO BID [facility] Last Admin: 11/29/19 21:14 Dose: 200 mg Documented by: Diagnostic Test (Pha) (Accu-Chek) 1 each FS [facility] Last Admin: 11/29/19 20:58 Dose: 1 each Documented by: Docusate Sodium (Colace) 100 mg PO BID [facility] Last Admin: 11/29/19 20:58 Dose: Not Given Documented by: Famotidine (Pepcid) 20 mg IV Q12 [facility] Last Admin: 11/29/19 21:09 Dose: 20 mg Documented by: Hydralazine HCl (Apresoline) 0 mg IV Q2HP PRN PRN Reason: Hypertension Last Admin: 11/29/19 19:21 Dose: 10 mg Documented by: Acetaminophen (Ofirmev) 650 mg in 65 mls @ 130 mls/hr IV Q6HP PRN; Protocol PRN Reason: PAIN/FEVER > 101 Last Admin: 11/29/19 19:20 Dose: 130 mls/hr Documented by: Vancomycin HCl 1,500 mg/ (Sodium Chloride) 500 mls @ 333.3 mls/hr IV DAILY [facility] Last Infusion: 11/29/19 11:55 Dose: Infused Documented by: Insulin Glargine (Lantus) 34 unit SQ HS [facility] Last Admin: 11/29/19 21:10 Dose: 34 units Documented by: Insulin Human Lispro (Humalog) 0 unit SQ [facility]; Protocol Last Admin: 11/29/19 20:58 Dose: Not Given Documented by: Lactobacillus Rhamnosus (Culturelle) 1 cap PO BID [facility] Last Admin: 11/29/19 21:15 Dose: 1 cap Documented by: Loperamide HCl (Imodium) 2 mg PO PRN PRN PRN Reason: Diarrhea Last Admin: 11/29/19 21:48 Dose: 2 mg Documented by: Metoclopramide HCl (Reglan) 10 mg IV Q6HP PRN PRN Reason: nausea Last Admin: 11/29/19 11:47 Dose: 10 mg Documented by: Metoprolol Succinate (Toprol Xl) 100 mg PO DAILY [facility] Last Admin: 11/29/19 09:28 Dose: 100 mg Documented by: Ondansetron HCl (Zofran) 4 mg IV Q4-6HP PRN PRN Reason: Nausea And Vomiting Last Admin: 11/29/19 19:22 Dose: 4 mg Documented by: Pregabalin (Lyrica) 50 mg PO BID [facility] Last Admin: 11/29/19 21:14 Dose: 50 mg Documented by: Senna (Senokot) 1 tab PO [facility] PRN PRN Reason: Constipation Sodium Chloride (Saline Flush) 10 ml IV Q8 [facility] Last Admin: 11/29/19 21:09 Dose: 10 ml Documented by: Vancomycin HCl (Vancomycin Per Pharmacy) 1 order IV UD [facility]; Protocol Venlafaxine HCl (Effexor Xr) 150 mg PO DAILY [facility] Last Admin: 11/29/19 09:20 Dose: 150 mg Documented by: A/P Narrative A/P Narrative: Narrative: Sepsis secondary to left lower extremity cellulitis-improved Sepsis improved Continue cefepime and vancomycin Blood cultures so far has been negative Vancomycin target trough level 15-20 Lactic acidosis-improved Left lower extremity cellulitis CT of the leg did not show any evidence of compartment syndrome or Continue cefepime and vancomycin Venous Doppler of the bilateral lower extremity-negative for any DVT Acute encephalopathy due to polypharmacy-improved Discontinued her narcotics and she is more awake and alert today Discussed with the patient's family extensively about the complications of narcotics and this could be life-threatening for her Strongly recommend the patient to cut back on the narcotics and consider day-to-day basis management of pain then keeping on same dose Since discontinuing her narcotics and decreasing the dosing of other neuroleptic medications her mentation improved significantly now she is alert and active and able to eat regular diet Acute renal failure probably due to hypovolemia-improving creatinine increased up to 2.0 and patient was poor oral intake due to encephalopathy Started on IV fluid NS 100 mils per hour Monitoring Creatinine improved Type 2 diabetes Takes insulin at home Monitor sliding scale insulin Paroxysmal atrial fibrillation Continue amiodarone and apixaban Depression anxiety Continued home medications Morbid obesity Peripheral vascular disease Continued aspirin and cilostazol DVT prophylaxis-she is on apixaban Time Spent With Patient Time: Total time spent is greater than 50% in coordination of care (as documented) at patient's floor/unit and/or counseling patient:
[2019-11-30] MEDS: ALBUTEROL SULFATE 200 PUFF INHALER INH PRN ×3 (05:14→18:23)
[2019-11-30 06:49] LABS: Basophils % (Auto) 0.9 % (0.0-2.0); Eosinophils % (Auto) 2.7 % (0.0-7.0); Granulocytes % (Auto) 67.9 % (38.0-78.0); Hematocrit 33.3 % (34.1-44.9); Hemoglobin 10.5 g/dL (11.2-15.7); Lymphocytes # (Auto) 2.01 K/mcL (1.50-4.80); Lymphocytes % (Auto) 18.2 % (15.5-49.0); Mean Cell Volume 87.2 fL (80.0-100.0); Mean Corpuscular HGB Conc 31.5 g/dL (31.0-36.0); Mean Platelet Volume 10.8 fL (7.4-10.4); Monocytes # (Auto) 1.14 K/mcL (0.10-0.90); Monocytes % (Auto) 10.3 % (1.0-12.0); Platelet Count 294 K/mcL (140-440); RBC 3.82 M/mcL (3.59-5.38); Red Cell Distribution Width 15.4 % (11.5-14.5); WBC 11.1 K/mcL (4.50-11.00)
[2019-11-30 07:05] LABS: ALT/SGPT 12 U/l (0-40); AST/SGOT 17 U/l (0-37); Albumin 2.7 gm/dL (3.2-5.2); Albumin/Globulin Ratio 0.7 (1.0-2.3); Alkaline Phosphatase 85 U/L (39-117); Bilirubin,Total 0.4 mg/dL (0.0-1.0); Blood Urea Nitrogen 12 mg/dl (8-23); Calcium 8.6 mg/dl (8.6-10.4); Carbon Dioxide 24 mmol/L (22-30); Chloride 108 mmol/L (96-108); Globulin 3.8 gm/dL (2.2-3.7); Glomerular Filtration Rate 60; Glucose 114 mg/dL (70-105)
[2019-11-30] MEDS: INSULIN LISPRO 1 UNIT/0.01 ML UNIT SQ SCH ×4 (09:07→22:03)
[2019-11-30] MEDS: 0.9 % SODIUM CHLORIDE 10 ML SYRINGE IV SCH ×3 (09:08→21:58)
[2019-11-30] MEDS: FAMOTIDINE/PF 20 MG/2 ML VIAL IV SCH ×2 (10:48→22:06)
[2019-11-30] MEDS: LACTOBACILLUS 1 CAPSULE PO SCH ×2 (10:51→22:02)
[2019-11-30] MEDS: LOPERAMIDE 2 MG CAPSULE PO PRN (10:51)
[2019-11-30] MEDS: VENLAFAXINE 150 MG CAP.XL.24H PO SCH (10:51)
[2019-11-30] MEDS: APIXABAN 5 MG TABLET PO SCH ×2 (10:51→22:02)
[2019-11-30] MEDS: CARBIDOPA/LEVODOPA 10/100 TABLET PO SCH ×2 (10:51→22:01)
[2019-11-30] MEDS: PREGABALIN 25 MG CAPSULE PO SCH ×2 (10:53→22:02)
[2019-11-30] MEDS: CILOSTAZOL 100 MG TABLET PO SCH ×2 (10:53→22:01)
[2019-11-30] MEDS: ASPIRIN 81 MG TAB.CHEW PO SCH (10:54)
[2019-11-30] MEDS: DOCUSATE SODIUM 100 MG CAPSULE PO SCH ×2 (11:01→22:02)
[2019-11-30] MEDS: AMIODARONE HCL 200 MG TABLET PO SCH (11:01)
[2019-11-30] MEDS: LISINOPRIL 20 MG TABLET PO SCH ×2 (11:02→22:02)
[2019-11-30] MEDS: VANCOMYCIN 1,500 MG in 0.9 % SODIUM CHLORIDE 500 ML IV SCH (11:03)
[2019-11-30] MEDS: ONDANSETRON 4 MG/2 ML VIAL IV PRN (11:16)
[2019-11-30] MEDS: CEFEPIME 2 GM VIAL IV SCH ×2 (11:17→21:59)
[2019-11-30] MEDS: INSULIN GLARGINE, HUMAN 1 UNIT/0.01 ML SQ SCH (22:00)
--- NOTE | 2019-11-30 22:29 | Internal Med Progress Note ---
SUBJECTIVE Subjective Patient information: Note initiated : 11/30/19 at 10:28 pm Service Date, if different from initiated Date: [] Patient: Bobbi Murphy 64 y/o F admitted on 11/22/19 for blood sugar. Chief Complaint: She actually had nearly an identical presentation in September 2018 she was found obtunded with a fever. She was started on broad-spectrum Bactrim antibiotics including acyclovir and did have a elevated lactate with the increase in her repeat lactate as well [place]. Lumbar puncture was ordered but no seen results that were ever done. Her septic picture is attributed to left lower extremity infection which she has had before and what I suspect is the current source. Does not report that her says she was a DNR but I have not talked to the and unable to gather accurate history from the given her altered mental state. She is on significant number of medications that may be contributing to her altered mental state. unAble to gather review of systems 11/22 Patient was on Precedex drip last night for agitation and confusion concern for risk of pulling out lines. On drip this morning but does respond to voice but otherwise does not follow commands. Lactic acid improving, leukocytosis improving. Fever curve improving. Good urine output. 11/23 She was weaned down on the Precedex last night but then became agitated and started pulling at lines. Started back up in the starting to wean again today. This morning she is more alert cooperative and mentation is improving. Cytosis continues to improve, no bandemia today. Renal function good *Patient was supposed to see Dr. Huber but has not yet. Patient was started on Sinemet empirically has it was difficult to get patient in to see the neurologist. 11/24 Feeling better today. Sitting up eating breakfast. Mentation resolved. Did have diarrhea last night C. difficile negative. 11/25 Mentation seems to be better she is alert oriented able to recognize people Continuing broad-spectrum antibiotic and added gram-positive coverage I will continue the vancomycin with her history of multiple hospital stay Ordered ultrasound of the lower extremity to look for any DVT 11/26 Patient is more alert and oriented today We held the pain medications yesterday Discussed with the patient's and patient in detail about the complications of narcotic making her drowsy and collapsed couple times I strongly recommend the patient to cut back on the narcotics and consider the pain management on a day-to-day basis then keeping a persistent dose all the time Added vancomycin in addition to cefepime for the cellulitis Worsening renal failure and started on IV fluid resuscitation and will monitor her renal status 11/27 Her creatinine improving Patient appears to be drowsy this morning Otherwise no symptoms overnight Cellulitis seems to be 11/28 Cellulitis seems to be improving Creatinine normalized Continue vancomycin and cefepime 11/29 Cellulitis significantly improved Plan to continue vancomycin and cefepime 1 more day and then will change to levofloxacin Renal function normalized Patient is alert and oriented n Case management involved in looking for placement Review of system Constitutional-complaining of leg pain, Head and neck-no headache no oral cavity symptoms no ear pain Respiratory-no shortness of breath diminished lung sounds Cardiac-denies any chest pain or palpitation Abdomen-distended no diarrhea Neuro-drowsiness improved Psychiatry-no anxiety no depression Interval history: Narrative: Constitutional Vitals: Vital Signs Temp Pulse Resp BP Pulse Ox 98.1 F 84 22 150/72 96 11/30/19 19:01 11/30/19 19:01 11/30/19 19:01 11/30/19 19:01 11/30/19 19:01 Period Temp Pulse Resp BP Sys/Nichols Pulse Ox Last 24 Hr 98.0 F-98.8 F 68-84 16-22 150-181/59-74 91-96 Intake and Output 11/30/19 11/30/19 12/01/19 13:59 21:59 05:59 Intake Total 500 300 Output Total 225 Balance 275 300 Intake & Output: Intake & Output 11/30/19 11/30/19 12/01/19 13:59 21:59 05:59 Intake Total 500 300 Output Total 225 Balance 275 300 Intake: IV 500 Vancomycin 1,500 mg In Sodium 500 Chloride 0.9% 500 ml @ 333.3 mls/hr IV DAILY [facility] Rx#: [id number] Oral 300 Output: Urine/Stool Mix 225 Other: Meal Lunch Percent of Meal Consumed 100% Feeding Ability Independent Urine Appearance Clear Urine Color Straw Urine Odor Normal Stool Size Small Moderate Stool Color Brown Brown Green Stool Consistency Loose Liquid # Voids 1 # Bowel Movements 1 General appearance: no acute distress and obese Head Head exam: Present atraumatic and normal inspection Eye Eye exam: Present EOMI; Absent periorbital swelling and scleral icterus ENT ENT exam: Present normal exam, normal external ear exam and normal oropharynx Respiratory Respiratory exam: Present decreased breath sounds; Absent accessory muscle use and respiratory distress Cardiovascular Cardiovascular exam: Absent irregular rhythm, JVD and systolic murmur Neurological Exam Neurological exam: Present alert, oriented X3 and reflexes normal; Absent motor sensory deficit Psychiatric Psychiatric exam: Absent anxious, depressed and suicidal ideation OBJ DATA Labs CBC & Chem 7: 11/30/19 05:50 11/30/19 05:50 Labs: Abnormal Lab Results 11/30/19 11/30/19 11/29/19 05:50 05:50 05:20 WBC 11.1 H Hgb 10.5 L Hct 33.3 L RDW 15.4 H MPV 10.8 H Gran # [place] # (Auto) 1.14 H Anion Gap BUN Creatinine Glucose 114 H 130 H Calcium Total Protein Albumin 2.7 L 2.5 L Globulin 3.8 H 3.8 H Albumin/Globulin Ratio 0.7 L 0.7 L 11/29/19 11/28/19 11/28/19 05:20 05:30 05:30 WBC 11.9 H Hgb 10.6 L 10.2 L Hct 32.9 L 31.8 L RDW MPV 11.1 H 11.4 H Gran # 8.40 H [place] # (Auto) 0.99 H 1.00 H Anion Gap 5.0 L BUN 26 H Creatinine 1.5 H Glucose 168 H Calcium 8.4 L Total Protein 5.8 L Albumin 2.3 L Globulin Albumin/Globulin Ratio 0.7 L Meds: Medications Acetaminophen (Tylenol) 650 mg ND Q4-6HP PRN PRN Reason: PAIN/FEVER > 101 Albuterol Sulfate (Ventolin) 2 puff INH Q4HP PRN PRN Reason: Shortness Of Breath Last Admin: 11/30/19 18:23 Dose: 2 puff Documented by: Amiodarone HCl (Cordarone) 200 mg PO [facility] Last Admin: 11/30/19 11:01 Dose: 200 mg Documented by: Apixaban (Eliquis) 5 mg PO BID [facility] Last Admin: 11/30/19 22:02 Dose: 5 mg Documented by: Aspirin (Aspirin) 81 mg PO DAILY [facility] Last Admin: 11/30/19 10:54 Dose: 81 mg Documented by: Bisacodyl (Dulcolax) 10 mg ND Q2-3DAYS PRN PRN Reason: Constipation Carbidopa/Levodopa (Sinemet 10/100) 1 tab PO BID [facility] Last Admin: 11/30/19 22:01 Dose: 1 tab Documented by: Cefepime HCl (Maxipime) 2 gm IV Q12H [facility]; Protocol Last Admin: 11/30/19 21:59 Dose: 2 gm Documented by: Cilostazol (Pletal) 200 mg PO BID [facility] Last Admin: 11/30/19 22:01 Dose: 200 mg Documented by: Diagnostic Test (Pha) (Accu-Chek) 1 each FS [facility] Last Admin: 11/30/19 21:58 Dose: 1 each Documented by: Docusate Sodium (Colace) 100 mg PO BID [facility] Last Admin: 11/30/19 22:02 Dose: Not Given Documented by: Famotidine (Pepcid) 20 mg IV Q12 [facility] Last Admin: 11/30/19 22:06 Dose: 20 mg Documented by: Hydralazine HCl (Apresoline) 0 mg IV Q2HP PRN PRN Reason: Hypertension Last Admin: 11/29/19 19:21 Dose: 10 mg Documented by: Acetaminophen (Ofirmev) 650 mg in 65 mls @ 130 mls/hr IV Q6HP PRN; Protocol PRN Reason: PAIN/FEVER > 101 Last Admin: 11/29/19 19:20 Dose: 130 mls/hr Documented by: Vancomycin HCl 1,500 mg/ (Sodium Chloride) 500 mls @ 333.3 mls/hr IV DAILY [facility] Last Infusion: 11/30/19 12:40 Dose: Infused Documented by: Insulin Glargine (Lantus) [address] [facility] Last Admin: 11/30/19 22:00 Dose: 34 units Documented by: Insulin Human Lispro (Humalog) 0 unit SQ [facility]; Protocol Last Admin: 11/30/19 22:03 Dose: Not Given Documented by: Lactobacillus Rhamnosus (Culturelle) 1 cap PO BID [facility] Last Admin: 11/30/19 22:02 Dose: 1 cap Documented by: Lisinopril (Zestril) 20 mg PO BID [facility] Last Admin: 11/30/19 22:02 Dose: 20 mg Documented by: Loperamide HCl (Imodium) 2 mg PO PRN PRN PRN Reason: Diarrhea Last Admin: 11/30/19 10:51 Dose: 2 mg Documented by: Metoclopramide HCl (Reglan) 10 mg IV Q6HP PRN PRN Reason: nausea Last Admin: 11/29/19 11:47 Dose: 10 mg Documented by: Metoprolol Succinate (Toprol Xl) 100 mg PO QDAY [facility] Ondansetron HCl (Zofran) 4 mg IV Q4-6HP PRN PRN Reason: Nausea And Vomiting Last Admin: 11/30/19 11:16 Dose: 4 mg Documented by: Pregabalin (Lyrica) 50 mg PO BID [facility] Last Admin: 11/30/19 22:02 Dose: 50 mg Documented by: Senna (Senokot) 1 tab PO [facility] PRN PRN Reason: Constipation Sodium Chloride (Saline Flush) 10 ml IV Q8 [facility] Last Admin: 11/30/19 21:58 Dose: 10 ml Documented by: Vancomycin HCl (Vancomycin Per Pharmacy) 1 order IV UD [facility]; Protocol Venlafaxine HCl (Effexor Xr) 150 mg PO DAILY [facility] Last Admin: 11/30/19 10:51 Dose: 150 mg Documented by: A/P Narrative A/P Narrative: Narrative: sepsis secondary to left lower extremity cellulitis-improved Sepsis improved Continue cefepime and vancomycin for 1 more day and will change to p.o. antibiotic Blood cultures so far has been negative Vancomycin target trough level 15-20 Lactic acidosis-improved Left lower extremity cellulitis CT of the leg did not show any evidence of compartment syndrome or Continue cefepime and vancomycin Venous Doppler of the bilateral lower extremity-negative for any DVT Acute encephalopathy due to polypharmacy-improved Discontinued her narcotics and she is more awake and alert today Discussed with the patient's family extensively about the complications of narcotics and this could be life-threatening for her Strongly recommend the patient to cut back on the narcotics and consider day-to-day basis management of pain then keeping on same dose Since discontinuing her narcotics and decreasing the dosing of other neuroleptic medications her mentation improved significantly now she is alert and active and able to eat regular diet Acute renal failure probably due to hypovolemia-improving creatinine increased up to 2.0 and patient was poor oral intake due to encephalopathy Started on IV fluid NS 100 mils per hour-IV fluids stopped Monitoring Creatinine improved Hypertensive urgency Restarted home medications Started on lisinopril 20 twice daily Use hydralazine as needed Type 2 diabetes Takes insulin at home Monitor sliding scale insulin Paroxysmal atrial fibrillation Continue amiodarone and apixaban Depression anxiety Continued home medications Morbid obesity Peripheral vascular disease Continued aspirin and cilostazol DVT prophylaxis-she is on apixaban Time Spent With Patient Time: Total time spent is greater than 50% in coordination of care (as documented) at patient's floor/unit and/or counseling patient:
[2019-12-01] MEDS: 0.9 % SODIUM CHLORIDE 10 ML SYRINGE IV SCH ×2 (05:19→15:12)
[2019-12-01 06:48] LABS: Basophils # (Auto) 0.09 K/mcL (0.00-0.30); Basophils % (Auto) 0.9 % (0.0-2.0); Eosinophils # (Auto) 0.37 K/mcL (0.00-0.70); Eosinophils % (Auto) 3.8 % (0.0-7.0); Granulocytes % (Auto) 62.9 % (38.0-78.0); Hematocrit 31.4 % (34.1-44.9); Hemoglobin 9.9 g/dL (11.2-15.7); Lymphocytes # (Auto) 2.11 K/mcL (1.50-4.80); Lymphocytes % (Auto) 21.9 % (15.5-49.0); Mean Cell Volume 87.2 fL (80.0-100.0); Mean Corpuscular HGB Conc 31.5 g/dL (31.0-36.0); Mean Platelet Volume 10.7 fL (7.4-10.4); Monocytes # (Auto) 1.01 K/mcL (0.10-0.90); Monocytes % (Auto) 10.5 % (1.0-12.0); Platelet Count 280 K/mcL (140-440); Red Cell Distribution Width 15.4 % (11.5-14.5); WBC 9.7 K/mcL (4.50-11.00)
[2019-12-01 07:06] LABS: ALT/SGPT 10 U/l (0-40); AST/SGOT 18 U/l (0-37); Albumin 2.7 gm/dL (3.2-5.2); Albumin/Globulin Ratio 0.8 (1.0-2.3); Alkaline Phosphatase 85 U/L (39-117); Bilirubin,Total 0.4 mg/dL (0.0-1.0); Blood Urea Nitrogen 11 mg/dl (8-23); Calcium 8.2 mg/dl (8.6-10.4); Carbon Dioxide 26 mmol/L (22-30); Chloride 108 mmol/L (96-108); Globulin 3.6 gm/dL (2.2-3.7); Glomerular Filtration Rate 68; Glucose 88 mg/dL (70-105)
--- NOTE | 2019-12-01 07:45 | Discharge Summary ---
Discharge Provider Provider Patient information: Note initiated : 12/01/19 at 7:43 am Service Date, if different from initiated Date: [] Patient: Bobbi Murphy 64 y/o F admitted on 11/22/19 for blood sugar. Chief Complaint: [] Date of admission: 11/22/19 18:51 Discharge date: 12/01/19 Primary care physician: Derrek Keen Consults: 11/22/19 Consult to Physician [CONS] Stat Comment: Consulting Provider: Chris Maurer Reason For Exam: Physician to Consult Discharge Meds Discharge Medications Active and Home Medications: Home Medications Centrum Complete 1 ea PO QDAY 12/30/14 [History Confirmed 11/23/19 Last Taken 01/28/17] Toujeo SoloStar U-300 Insulin 34 unit SQ HS 12/30/14 [History Confirmed 11/23/19 Last Taken 01/28/17] albuterol sulfate [ProAir HFA] 1 - 2 puff IH PRN PRN 12/30/14 [History Confirmed 11/23/19 Last Taken 01/28/17] ockoqynfjt-bixirdzjzm-ijs-cod 1 cap PO PRN PRN 12/30/14 [History Confirmed 11/23/19 Last Taken 01/28/17] cholecalciferol (vitamin D3) 2,000 unit PO QDAY 12/30/14 [History Confirmed 11/23/19 Last Taken 01/28/17] cilostazol [Pletal] 200 mg PO BID 12/30/14 [History Confirmed 11/23/19 Last Taken 01/28/17] potassium chloride 10 meq PO BIDCC 12/30/14 [History Confirmed 11/23/19 Last Taken 01/28/17] zolpidem 10 mg PO HSP PRN 12/30/14 [History Confirmed 11/23/19 Last Taken 01/28/17] rabeprazole [AcipHex] 20 mg PO DAILY 10/13/15 [History Confirmed 11/23/19 Last Taken 01/28/17] aspirin 325 mg PO DAILY 02/07/16 [History Confirmed 11/23/19 Last Taken 01/28/17] amiodarone 200 mg tablet 200 mg PO DAILY tab 09/09/19 [History Confirmed 11/23/19 Last Taken Unknown] calcipotriene 0.005 % topical cream 1 applic TOPICAL .unknown g 09/09/19 [History Confirmed 11/23/19 Last Taken Unknown] carbidopa 10 mg-levodopa 100 mg tablet 1 tab PO BID tab 09/09/19 [History Confirmed 11/23/19 Last Taken Unknown] Eliquis 5 mg PO BID 11/23/19 [History Confirmed 11/23/19 Last Taken Unknown] Narcan 4 mg INTRANASAL PRN PRN 11/23/19 [History Confirmed 11/23/19 Last Taken Unknown] hydrocodone-acetaminophen 1 tab PO TID PRN 11/23/19 [History Confirmed 11/23/19 Last Taken Unknown] insulin aspart U-100 [Novolog Flexpen U-100 Insulin] See Protocol SUBCUT PRN PRN 11/23/19 [History Confirmed 11/23/19 Last Taken Unknown] metoprolol succinate 100 mg PO QDAY 11/24/19 [History Confirmed 11/24/19 Last Taken Unknown] venlafaxine 150 mg PO QDAY 11/24/19 [History Confirmed 11/24/19 Last Taken Unknown] cefpodoxime 200 mg PO BID #10 tab NS 12/01/19 [Rx Last Taken Unknown] docusate sodium 100 mg PO BID #30 cap NS 12/01/19 [Rx Last Taken Unknown] doxycycline hyclate 100 mg PO BID #10 tab NS 12/01/19 [Rx Last Taken Unknown] lisinopril 20 mg PO BID #60 tab NS 12/01/19 [Rx Last Taken Unknown] pregabalin 50 mg PO BID #60 cap NS 12/01/19 [Rx Last Taken Unknown] COURSE Hospital Course Hospital Course: She actually had nearly an identical presentation in September 2018 she was found obtunded with a fever. She was started on broad-spectrum Bactrim antibiotics including acyclovir and did have a elevated lactate with the increase in her repeat lactate as well [place]. Lumbar puncture was ordered but no seen results that were ever done. Her septic picture is attributed to left lower extremity infection which she has had before and what I suspect is the current source. Does not report that her says she was a DNR but I have not talked to the and unable to gather accurate history from the given her altered mental state. She is on significant number of medications that may be contributing to her altered mental state. unAble to gather review of systems 11/22 Patient was on Precedex drip last night for agitation and confusion concern for risk of pulling out lines. On drip this morning but does respond to voice but otherwise does not follow commands. Lactic acid improving, leukocytosis improving. Fever curve improving. Good urine output. 11/23 She was weaned down on the Precedex last night but then became agitated and started pulling at lines. Started back up in the starting to wean again today. This morning she is more alert cooperative and mentation is improving. Cytosis continues to improve, no bandemia today. Renal function good *Patient was supposed to see Dr. Huber but has not yet. Patient was started on Sinemet empirically has it was difficult to get patient in to see the neurologist. 11/24 Feeling better today. Sitting up eating breakfast. Mentation resolved. Did have diarrhea last night C. difficile negative. 11/25 Mentation seems to be better she is alert oriented able to recognize people Continuing broad-spectrum antibiotic and added gram-positive coverage I will continue the vancomycin with her history of multiple hospital stay Ordered ultrasound of the lower extremity to look for any DVT 11/26 Patient is more alert and oriented today We held the pain medications yesterday Discussed with the patient's and patient in detail about the complications of narcotic making her drowsy and collapsed couple times I strongly recommend the patient to cut back on the narcotics and consider the pain management on a day-to-day basis then keeping a persistent dose all the time Added vancomycin in addition to cefepime for the cellulitis Worsening renal failure and started on IV fluid resuscitation and will monitor her renal status 11/27 Her creatinine improving Patient appears to be drowsy this morning Otherwise no symptoms overnight Cellulitis seems to be 11/28 Cellulitis seems to be improving Creatinine normalized Continue vancomycin and cefepime 11/29 Cellulitis significantly improved Plan to continue vancomycin and cefepime 1 more day and then will change to levofloxacin Renal function normalized Patient is alert and oriented n Case management involved in looking for placement Review of system Constitutional-complaining of leg pain, Head and neck-no headache no oral cavity symptoms no ear pain Respiratory-no shortness of breath diminished lung sounds Cardiac-denies any chest pain or palpitation Abdomen-distended no diarrhea Neuro-drowsiness improved Psychiatry-no anxiety no depression sepsis secondary to left lower extremity cellulitis-improved Sepsis improved Continue cefepime and vancomycin for 1 more day and will change to p.o. antibiotic Blood cultures so far has been negative Vancomycin target trough level 15-20 Antibiotics changed to p.o. cefpodoxime and doxycycline for another 5 days Cellulitis seems to be resolved Lactic acidosis-improved Left lower extremity cellulitis CT of the leg did not show any evidence of compartment syndrome or Continue cefepime and vancomycin Venous Doppler of the bilateral lower extremity-negative for any DVT Cellulitis improved with IV vancomycin and cefepime and antibiotics changed to doxycycline and cefpodoxime for next 5 days p.o. Acute encephalopathy due to polypharmacy-improved Discontinued her narcotics and she is more awake and alert today Discussed with the patient's family extensively about the complications of narcotics and this could be life-threatening for her Strongly recommend the patient to cut back on the narcotics and consider day-to-day basis management of pain then keeping on same dose Since discontinuing her narcotics and decreasing the dosing of other neuroleptic medications her mentation improved significantly now she is alert and active and able to eat regular diet Acute renal failure probably due to hypovolemia-improving creatinine increased up to 2.0 and patient was poor oral intake due to e ncephalopathy Started on IV fluid NS 100 mils per hour-IV fluids stopped Monitoring Creatinine improved Hypertensive urgency Restarted home medications Started on lisinopril 20 twice daily Use hydralazine as needed Severe sleep apnea Patient has strong evidence of severe sleep apnea Strongly recommend the patient to get sleep study This might be contributing to her encephalopathy Type 2 diabetes Takes insulin at home Monitor sliding scale insulin Paroxysmal atrial fibrillation Continue amiodarone and apixaban Depression anxiety Continued home medications Morbid obesity Peripheral vascular disease Continued aspirin and cilostazol DVT prophylaxis-she is on apixaban Discharge diagnosis: Septic shock due to cellulitis, acute encephalopathy due to polypharmacy Time Spent with Patient Time attestation: Total time spent providing and/or coordinating discharge services: Time spent: Greater than 30 minutes Specific discharge activities: Sleep study in 1 to 2 weeks EXAM Constitutional Vitals: Temp Pulse Resp BP Pulse Ox 98.2 F 74 22 167/65 93 12/01/19 02:38 12/01/19 02:38 12/01/19 02:38 12/01/19 02:38 12/01/19 02:38 General appearance: cooperative and obese Head Head exam: Present atraumatic, normal inspection and normocephalic Eye Eye exam: Present EOMI; Absent periorbital swelling and scleral icterus ENT ENT exam: Present normal exam, normal external ear exam and normal oropharynx Neck Neck exam: Present normal inspection; Absent lymphadenopathy and tenderness Respiratory Respiratory exam: Present decreased breath sounds; Absent respiratory distress and wheezes Cardiovascular Cardiovascular exam: Absent JVD, +S4 and tachycardia GI/Abdominal GI/Abdominal exam: Present normal bowel sounds, soft and distended Neurological Exam Neurological exam: Present alert, oriented X3 and reflexes normal; Absent motor sensory deficit Psychiatric Psychiatric exam: Absent agitated, anxious and depressed Discharge Data Data Completed and Pending Labs on day of discharge: Labs from last 24 hours 12/01/19 12/01/19 11/30/19 05:32 05:32 08:01 WBC 9.7 RBC 3.60 Hgb 9.9 L Hct 31.4 L MCV 87.2 MCH 27.5 MCHC 31.5 RDW 15.4 H Plt Count 280 MPV 10.7 H Gran % 62.9 Lymph % (Auto) 21.9 [place] % (Auto) 10.5 Eos % (Auto) 3.8 Baso % (Auto) 0.9 Gran # 6.07 Lymph # (Auto) 2.11 [place] # (Auto) 1.01 H Eos # (Auto) 0.37 Baso # (Auto) 0.09 Sodium 142 Potassium 3.3 Chloride 108 Carbon Dioxide 26 Anion Gap 8.0 BUN 11 Creatinine 0.9 GFR Calculation 68 Glucose 88 Calcium 8.2 L Magnesium 1.8 Total Bilirubin 0.4 AST 18 ALT 10 Alkaline Phosphatase 85 Total Protein 6.3 Albumin 2.7 L Globulin 3.6 Albumin/Globulin Ratio 0.8 L Vancomycin Trough 13.2 Discharge Plan Patient/Caregiver Discharge Instructions Activity: ambulate only with your walker and as per physical therapy Diet: Low Sodium (2gm) Activity Restrictions/Additional Instructions: Need sleep study in 1 to 2 weeks Stop taking morphine Hydrocodone every 4 hours as needed Decrease the dose of Lyrica 50 twice daily Prescriptions: New lisinopril 20 mg Tablet 20 mg PO BID Qty: 60 RF: 2 docusate sodium 100 mg Capsule 100 mg PO BID Qty: 30 RF: 2 pregabalin 25 mg Capsule 50 mg PO BID Qty: 60 RF: 1 cefpodoxime 200 mg tablet 200 mg PO BID Qty: 10 RF: 0 doxycycline hyclate 100 mg tablet 100 mg PO BID Qty: 10 RF: 0 Continued carbidopa-levodopa 10-100 mg tablet 1 tab PO BID RF: 0 amiodarone 200 mg tablet 200 mg PO DAILY RF: 0 calcipotriene [Dovonex] 0.005 % cream 1 applic TOPICAL .unknown RF: 0 cilostazol [Pletal] 50 MG tablet 200 mg PO BID RF: 0 potassium chloride 10 MEQ tablet extended release 10 meq PO BIDCC RF: 0 auprueiosf-aekiwrghfw-yuc-cod 1 EACH capsule 1 cap PO PRN PRN (Reason: Headache) RF: 0 zolpidem 10 MG tablet 10 mg PO HSP PRN (Reason: Insomnia) RF: 0 Toujeo SoloStar U-300 Insulin 300 UNIT/ML insulin pen 34 unit SQ HS RF: 0 cholecalciferol (vitamin D3) 2,000 UNIT tablet 2,000 unit PO QDAY RF: 0 Centrum Complete 1 EACH tablet 1 ea PO QDAY RF: 0 albuterol sulfate [ProAir HFA] 8.5 GM HFA aerosol inhaler 1 - 2 puff IH PRN PRN (Reason: Shortness Of Breath) RF: 0 rabeprazole [AcipHex] 20 MG tablet,delayed release (DR/EC) 20 mg PO DAILY RF: 0 aspirin 325 MG tablet,delayed release (DR/EC) 325 mg PO DAILY RF: 0 Eliquis 5 mg tablet 5 mg PO BID RF: 0 insulin aspart U-100 [Novolog Flexpen U-100 Insulin] 100 unit/mL (3 mL) insulin pen See Protocol unit subcut PRN PRN (Reason: Hyperglycemia) RF: 0 hydrocodone-acetaminophen 7.5-325 mg tablet 1 tab PO TID PRN (Reason: Pain) RF: 0 Narcan 4 mg/actuation spray,non-aerosol 4 mg INTRANASAL PRN PRN (Reason: Sedation) RF: 0 venlafaxine 150 mg Tablet Extended Release 24hr 150 mg PO QDAY RF: 0 metoprolol succinate 50 mg Capsule,Sprinkle,Er 24hr 100 mg PO QDAY RF: 0 Discontinued morphine 15 mg tablet extended release 15 mg PO BID RF: 0 pregabalin [Lyrica] 150 MG capsule 150 mg PO TID RF: 0 lisinopril 20 mg tablet 20 mg PO DAILY RF: 0 Follow Up Plan Follow up with: Derrek Keen MD [Primary Care Provider] - (in 7 days patient need sleep study in 7-14 days) Prognosis: Good Rehab Potential: Serious I certify that the patient requires SNF services: Yes Overall status at discharge: patient is not back to baseline Discharge Orders: Discharge Order (Routine); Ordered 12/01/19 Ordered By: Alisia Hallman Discharge Comment: patient needs sleep study in 1-2 weeks
[2019-12-01] MEDS: INSULIN LISPRO 1 UNIT/0.01 ML UNIT SQ SCH ×2 (08:01→12:25)
[2019-12-01] MEDS ORDERED: METOPROLOL SUCCINATE 50 MG TAB.XL.24H PO SCH (09:00)
[2019-12-01] MEDS: LACTOBACILLUS 1 CAPSULE PO SCH (09:54)
[2019-12-01] MEDS: CARBIDOPA/LEVODOPA 10/100 TABLET PO SCH (09:54)
[2019-12-01] MEDS: VENLAFAXINE 150 MG CAP.XL.24H PO SCH (09:55)
[2019-12-01] MEDS: ASPIRIN 81 MG TAB.CHEW PO SCH (09:55)
[2019-12-01] MEDS: APIXABAN 5 MG TABLET PO SCH (09:55)
[2019-12-01] MEDS: PREGABALIN 25 MG CAPSULE PO SCH (09:55)
[2019-12-01] MEDS: LISINOPRIL 20 MG TABLET PO SCH (09:58)
[2019-12-01] MEDS: CILOSTAZOL 100 MG TABLET PO SCH (09:59)
[2019-12-01] MEDS: DOCUSATE SODIUM 100 MG CAPSULE PO SCH (09:59)
[2019-12-01] MEDS: FAMOTIDINE/PF 20 MG/2 ML VIAL IV SCH (10:00)
[2019-12-01] MEDS: AMIODARONE HCL 200 MG TABLET PO SCH (10:11)
[2019-12-01] MEDS: CEFEPIME 2 GM VIAL IV SCH (10:12)
[2019-12-01] MEDS: VANCOMYCIN 1,500 MG in 0.9 % SODIUM CHLORIDE 500 ML IV SCH (10:17)
[2019-12-01] MEDS: ACETAMINOPHEN 650 MG/65 ML BOTTLE IV PRN (13:44)
[2019-12-01] MEDS: hydrALAZINE 20 MG/ML VIAL IV PRN (13:46)
[2019-12-01] MEDS ORDERED: ENALAPRILAT 1.25 MG/ML VIAL IV ONE (15:03)
== END 2019-12-01 16:01 | disposition home or self-care (01) | DRG 871 ==
LOC: ED 09:13 → ICU 18:40 → MEDSUR 11-25 18:05
PROVIDERS: ADMIT Internal Medicine; ATTEND Internal Medicine

== ENCOUNTER 2020-06-07 09:18 | Inpatient (IN) ==
[2020-06-07] MEDS ORDERED: ONDANSETRON 4 MG/2 ML VIAL IV ONE (09:48)
--- NOTE | 2020-06-07 09:52 | Emergency Department Note ---
HPI General Chief complaint: Weakness Stated complaint: possible sepsis Time Seen by Provider: 06/07/20 09:25 Source: patient, EMS and RN notes reviewed Mode of arrival: EMS Limitations: no limitations History of Present Illness HPI Narrative: Narrative: This patient comes in because of generalized weakness and says she has fallen 8 times in the last 3 days. She does not complain of injury injury from her falls. She has had sepsis in the past and was concerned about that. She says that she has had some fever yesterday. She has had slight headache nausea slight abdominal discomfort, she has had slight cough and shortness of breath but no diarrhea. She does have a [place] catheter in place due to urinary in continence and has been in for couple of weeks. Does not complain of specific pain in her pelvis or suprapubic region. Related Data Home Medications Medication Instructions Recorded Confirmed Centrum Complete 1 ea PO QDAY 12/30/14 05/30/20 Toujeo SoloStar U-300 Insulin 34 unit SQ HS 12/30/14 05/30/20 albuterol sulfate [ProAir HFA] 1 - 2 puff IH PRN PRN 12/30/14 05/30/20 insnvdprbu-iqeshyfpav-xoa-cod 1 cap PO PRN PRN 12/30/14 06/07/20 cholecalciferol (vitamin D3) 2,000 unit PO QDAY 12/30/14 05/30/20 cilostazol [Pletal] 200 mg PO BID 12/30/14 06/07/20 potassium chloride 10 meq PO BIDCC 12/30/14 06/07/20 zolpidem 10 mg PO HSP PRN 12/30/14 06/07/20 rabeprazole [AcipHex] 20 mg PO DAILY 10/13/15 06/07/20 aspirin 325 mg PO DAILY 02/07/16 05/30/20 amiodarone 200 mg tablet 200 mg PO DAILY tab 09/09/19 06/07/20 calcipotriene 0.005 % topical cream 1 applic TOPICAL .unknown g 09/09/19 05/30/20 carbidopa 10 mg-levodopa 100 mg 1 tab PO BID tab 09/09/19 06/07/20 tablet Eliquis 5 mg PO BID 11/23/19 06/07/20 insulin aspart U-100 [Novolog See Protocol SUBCUT PRN PRN 11/23/19 06/07/20 Flexpen U-100 Insulin] metoprolol succinate 100 mg PO QDAY 11/24/19 06/07/20 venlafaxine 150 mg PO QDAY 11/24/19 06/07/20 Previous Rx's Medication Instructions Recorded docusate sodium 100 mg PO BID #30 cap NS 12/01/19 lisinopril 20 mg PO BID #60 tab NS 12/01/19 pregabalin 50 mg PO BID #60 cap NS 12/01/19 morphine 15 mg tablet,extended 15 mg PO Q12H #60 tab MDD 2 05/13/20 release naloxone 4 mg/actuation nasal spray 4 mg INTRANASAL .COMPLEX PRN #2 05/13/20 each hydrocodone 7.5 mg-acetaminophen 1 tab PO QID PRN #120 tab MDD 4 05/16/20 325 mg tablet Allergies Allergy/AdvReac Type Severity Reaction Status Date / Time propranolol [From Inderal LA] Allergy Severe Difficulty Verified 05/30/20 14:07 Breathing indomethacin [From Indocin] Allergy Mild Rash Verified 05/30/20 14:07 Iodinated Contrast Media Allergy Mild Hives Verified 05/30/20 14:07 [Iodinated Contrast Media - IV Dye] Penicillins Allergy Mild Rash Verified 05/30/20 14:07 NSAIDS (Non-Steroidal Allergy unknown Verified 05/30/20 14:07 Anti-Inflamma methadone [Methadone] AdvReac Intermediate Swelling Verified 05/30/20 14:07 clonidine [From Catapres] AdvReac Mild Hypertensio Verified 05/30/20 14:07 n fentanyl AdvReac Mild burning Verified 05/30/20 14:07 sesation throughout body gabapentin [From Neurontin] AdvReac Mild Abdominal Verified 05/30/20 14:07 Pain hydromorphone [From Dilaudid] AdvReac Mild HTN, Verified 05/30/20 14:07 Migraines pregabalin [From Lyrica] AdvReac Mild Edema Verified 05/30/20 14:07 Sulfa (Sulfonamide AdvReac Mild Unknown Verified 06/07/20 09:40 Antibiotics) ziconotide [From Prialt] AdvReac Mild Other Verified 05/30/20 14:07 Review of Systems ROS ROS Narrative: Narrative: All systems ED: reviewed and negative except as stated. PFSH Narrative Patient History Narrative: Narrative: Medical/Surgical/Family History All Active Problems (Updated 06/07/20 @ 21:52 by Renaldo Marquez MD) Congestive heart failure (Acute) correction (current) use of opiate analgesic (Chronic) Other spondylosis with radiculopathy, cervical region (Chronic) Sepsis (Acute) Complex regional pain syndrome i of upper limb, bilateral (Chronic) Complex regional pain syndrome i of lower limb, bilateral (Chronic) Chronic pain (Chronic) Cervical spondylosis with radiculopathy (Chronic) Spondylosis without myelopathy or radiculopathy, lumbar region (Chronic) Knee osteoarthritis (Acute) S/P total knee arthroplasty (Acute) Urinary tract infection (Acute) Medical History (Updated 06/07/20 @ 21:52 by Renaldo Marquez MD) Cervical spondylosis with radiculopathy (Chronic) Chronic pain (Chronic) Complex regional pain syndrome i of lower limb, bilateral (Chronic) Complex regional pain syndrome i of upper limb, bilateral (Chronic) Knee osteoarthritis (Acute) correction (current) use of opiate analgesic (Chronic) Other spondylosis with radiculopathy, cervical region (Chronic) Spondylosis without myelopathy or radiculopathy, lumbar region (Chronic) Urinary tract infection (Acute) Surgical History (Updated 10/18/16 @ 14:10 by [facility]) S/P total knee arthroplasty (Acute) Family History (Updated 03/03/20 @ 12:02 by Rafaela Maxwell) Other No pertinent family history Social History Smoking Status: Never smoker Exam Narrative Narrative: Narrative: General Limitations: no limitations Head Head: Present atraumatic, normocephalic and normal inspection Eye Eye: Present normal appearance and EOMI; Absent scleral icterus and conjunctival injection ENT ENT: Present normal exam, normal oropharynx and mucous membranes moist Neck Neck: Present normal inspection and full ROM Chest Chest: Present normal inspection and symmetric chest wall rise Respiratory Respiratory: Present normal lung sounds bilaterally; Absent respiratory dis tress, rales/crackles and wheezes Cardiovascular Cardiovascular: Present regular rate, normal rhythm and normal heart sounds Adbominal Abdominal: Present soft, tenderness and normal bowel sounds; Absent distention, guarding, rebound and rigidity Expanded Abdominal Abdominal Tenderness: Present LUQ, LLQ and mild Extremities Extremities: Present normal inspection, full ROM, pedal edema, pretibial edema and other (Stasis dermatitis changes especially in the left lower leg) Neurological Neurological: Present alert Psychiatric Psychiatric: Present normal affect Skin Skin: Present warm (WNL) and dry; Absent diaphoresis Course Vital Signs Vital signs: Vital Signs Temperature 97.2 F 06/07/20 09:34 Pulse Rate 68 06/07/20 09:34 Respiratory Rate 15 06/07/20 09:34 Blood Pressure 191/72 06/07/20 09:34 Pulse Oximetry (%) 95 06/07/20 09:34 Temperature 99.1 F H 06/07/20 18:49 Pulse Rate 66 06/07/20 20:14 Respiratory Rate 19 06/07/20 20:14 Blood Pressure 143/58 06/07/20 18:49 Pulse Oximetry (%) 96 06/07/20 20:14 MDM MDM Narrative Medical decision making narrative: Narrative: We gave her 40 mg of IV Lasix and she did diurese 875 cc. However she still hypoxic requiring oxygen to keep her sats above 90. She will be admitted to the hospital by the hospitalist service. Lab Data Lab results reviewed: Yes I reviewed the patient's lab results. Lab results narrative: This patient did have a lactic acid of 2.6 urinalysis that was clear a BNP of 483. Result diagrams: 06/07/20 09:52 06/07/20 09:52 Labs: Lab Results 06/07/20 06/07/20 06/07/20 Range/Units 09:51 09:52 09:52 WBC 5.7 (4.5-11.0) K/mcL RBC 4.03 (4.00-5.20) M/mcL Hgb 9.8 L (12.0-15.0) g/dL Hct 31.7 L (36.0-48.0) % MCV 78.7 L (80.0-100.0) fL MCH 24.3 L (26.0-34.0) pg MCHC 30.9 L (31.0-36.0) g/dL RDW 15.3 H (11.5-14.5) % Plt Count 235 (140-440) K/mcL MPV 10.8 H (7.4-10.4) fL Neut % (Auto) 62.4 (38.0-78.0) % Lymph % (Auto) 26.0 (15.0-49.0) % [place] % (Auto) 8.1 (1.0-12.0) % Eos % (Auto) 2.3 (0.0-7.0) % Baso % (Auto) 1.2 (0.0-2.0) % Lymph # (Auto) 1.48 L (1.50-4.80) K/mcL [place] # (Auto) 0.46 (0.10-0.90) K/mcL Eos # (Auto) 0.13 (0.00-0.70) K/mcL Baso # (Auto) 0.07 (0.00-0.20) K/mcL Absolute Neutrophils 3.56 (1.80-8.00) K/mcL VBG Lactic Acid (0.5-2.0) mmol/L Sodium 135 (133-145) mmol/L Potassium 4.2 (3.3-5.1) mmol/L Chloride 102 (96-108) mmol/L Carbon Dioxide 27 (22-30) mmol/L Anion Gap 6.0 L (8.0-16.0) BUN 11 (8-23) mg/dL Creatinine 1.2 H (0.6-1.1) mg/dL GFR Calculation 48 Glucose 264 H (70-105) mg/dL Calcium 8.7 (8.6-10.4) mg/dL Total Bilirubin 0.3 (0.1-1.0) mg/dL AST 26 (<32) U/L ALT < 5 (<40) U/L Alkaline Phosphatase 140 H (39-117) U/L Troponin T (<0.03) ng/mL NT-Pro-B Natriuret Pep 484.3 H (<125.0) pg/mL Total Protein 6.6 (5.9-8.4) gm/dL Albumin 2.5 L (3.2-5.2) gm/dL Globulin 4.1 H (2.2-3.7) gm/dL Albumin/Globulin Ratio 0.6 L (1.0-2.3) Procalcitonin (<0.10) ng/mL Urine Color Yellow Urine Appearance Clear (Clear) Urine pH 7.0 (5.0-9.0) Ur Specific [place] 1.012 (1.000-1.035) Urine Protein 100 A (Negative) mg/dL Urine Glucose (UA) 150 A (Negative) mg/dL Urine Ketones Negative (Negative) mg/dL Urine Occult Blood 0.03 (Negative) mg/dL Urine Nitrate Negative (Negative) Urine Bilirubin Negative (Negative) mg/dL Urine Urobilinogen Negative mg/dL Ur Leukocyte Esterase Negative (Negative) /ug Urine RBC 18 H (0-3) /hpf Urine WBC 2 (0-4) /hpf Ur Squamous Epith Cells 0 (0-4) /hpf Urine Bacteria None (0) /hpf Urine Mucus Few A (None) /hpf Ur Culture Indicated? No 06/07/20 06/07/20 06/07/20 Range/Units 09:52 09:52 09:52 WBC (4.5-11.0) K/mcL RBC (4.00-5.20) M/mcL Hgb (12.0-15.0) g/dL Hct (36.0-48.0) % MCV (80.0-100.0) fL MCH (26.0-34.0) pg MCHC (31.0-36.0) g/dL RDW (11.5-14.5) % Plt Count (140-440) K/mcL MPV (7.4-10.4) fL Neut % (Auto) (38.0-78.0) % Lymph % (Auto) (15.0-49.0) % [place] % (Auto) (1.0-12.0) % Eos % (Auto) (0.0-7.0) % Baso % (Auto) (0.0-2.0) % Lymph # (Auto) (1.50-4.80) K/mcL [place] # (Auto) (0.10-0.90) K/mcL Eos # (Auto) (0.00-0.70) K/mcL Baso # (Auto) (0.00-0.20) K/mcL Absolute Neutrophils (1.80-8.00) K/mcL VBG Lactic Acid 2.6 H (0.5-2.0) mmol/L Sodium (133-145) mmol/L Potassium (3.3-5.1) mmol/L Chloride (96-108) mmol/L Carbon Dioxide (22-30) mmol/L Anion Gap (8.0-16.0) BUN (8-23) mg/dL Creatinine (0.6-1.1) mg/dL GFR Calculation Glucose (70-105) mg/dL Calcium (8.6-10.4) mg/dL Total Bilirubin (0.1-1.0) mg/dL AST (<32) U/L ALT (<40) U/L Alkaline Phosphatase (39-117) U/L Troponin T < 0.01 (<0.03) ng/mL NT-Pro-B Natriuret Pep (<125.0) pg/mL Total Protein (5.9-8.4) gm/dL Albumin (3.2-5.2) gm/dL Globulin (2.2-3.7) gm/dL Albumin/Globulin Ratio (1.0-2.3) Procalcitonin 0.07 (<0.10) ng/mL Urine Color Urine Appearance (Clear) Urine pH (5.0-9.0) Ur Specific [place] (1.000-1.035) Urine Protein (Negative) mg/dL Urine Glucose (UA) (Negative) mg/dL Urine Ketones (Negative) mg/dL Urine Occult Blood (Negative) mg/dL Urine Nitrate (Negative) Urine Bilirubin (Negative) mg/dL Urine Urobilinogen mg/dL Ur Leukocyte Esterase (Negative) /ug Urine RBC (0-3) /hpf Urine WBC (0-4) /hpf Ur Squamous Epith Cells (0-4) /hpf Urine Bacteria (0) /hpf Urine Mucus (None) /hpf Ur Culture Indicated? Radiology Data Radiology results reviewed: Yes I reviewed the patient's radiology results. Radiology results narrative: Chest x-ray is consistent with congestive heart failure. CT of chest abdomen and pelvis with otherwise unremarkable for source of sepsis. Discharge Plan Patient/Caregiver Discharge Instructions Pt seen by NURSERY HELPER/PA only: No Clinical Impression: Congestive heart failure Patient Disposition: Xfer As Inpt ([facility]) Condition: Fair Discharge Date/Time: 06/07/20 19:02
--- NOTE | 2020-06-07 10:30 | Cat Scan Report ---
CLINICAL INFORMATION: Trauma. On anticoagulation COMPARISON: 11/22/2019. TECHNIQUE: 2.5 mm helical slices were obtained in the skull base to vertex. Following reconstruction, axial reformatted images were reviewed at bone and parenchymal windows. The exam was performed using radiation dose optimization techniques including, but not limited to, automated exposure control, adjustment of the mA and/or kV according to patient size and use of iterative reconstruction technique. FINDINGS: The ventricles, sulci, fissures, and cisterns are normal in size and configuration for age. No extra-axial fluid collections are identified. Mild chronic ischemic changes in bifrontal white matter are unchanged The cerebrum, brainstem and cerebellum are, otherwise, unremarkable. There is no evidence of hemorrhage, mass effect, or edema. Bone windows show no osseous abnormality. IMPRESSION: Mild atrophy and chronic ischemic changes in the bifrontal white matter are stable. No intracerebral hemorrhage or other acute posttraumatic change Interpreted and Authenticated by: Ramses Kinney 06/07/20
--- NOTE | 2020-06-07 10:33 | XRay Report ---
CLINICAL INFORMATION: sob COMPARISON: 11/22/2019 FINDINGS: Moderate cardiomegaly is unchanged. Mediastinum is unremarkable. Pulmonary vessels are mildly distended and there is mild peribronchovascular edema. No infiltrates. A small right pleural effusion noted IMPRESSION: Moderate CHF Interpreted and Authenticated by: Ramses Kinney 06/07/20
[2020-06-07 10:52] LABS: Basophils # (Auto) 0.07 K/mcL (0.00-0.20); Basophils % (Auto) 1.2 % (0.0-2.0); Eosinophils # (Auto) 0.13 K/mcL (0.00-0.70); Eosinophils % (Auto) 2.3 % (0.0-7.0); Hematocrit 31.7 % (36.0-48.0); Hemoglobin 9.8 g/dL (12.0-15.0); Lymphocytes # (Auto) 1.48 K/mcL (1.50-4.80); Mean Cell Volume 78.7 fL (80.0-100.0); Mean Corpuscular HGB Conc 30.9 g/dL (31.0-36.0); Mean Platelet Volume 10.8 fL (7.4-10.4); Monocytes # (Auto) 0.46 K/mcL (0.10-0.90); Monocytes % (Auto) 8.1 % (1.0-12.0); Neutrophils % (Auto) 62.4 % (38.0-78.0); Platelet Count 235 K/mcL (140-440); RBC 4.03 M/mcL (4.00-5.20); Red Cell Distribution Width 15.3 % (11.5-14.5); WBC 5.7 K/mcL (4.5-11.0)
[2020-06-07 11:05] LABS: Appearance,Urine CLEAR (Clear); Bilirubin,Urine Negative (Negative); Color,Urine YELLOW; Culture Indicated,Urine No; Glucose,Urine (UA) 150 mg/dL (Negative); Ketones,Urine Negative (Negative); Leukocyte Esterase,Urine Negative /ug (Negative); Mucus,Urine FEW /hpf; Nitrate,Urine Negative (Negative); Protein,Urine 100 mg/dL (Negative); Specific Gravity,Urine 1.012 (1.000-1.035); Urine Blood 0.03 mg/dL (Negative); Urine RBC 18 /hpf (0-3); Urine Squamous Epithelial Cell 0 /hpf (0-4); Urine WBC 2 /hpf (0-4); Urobilinogen,Urine Negative
[2020-06-07 11:13] LABS: proBNP 484.3 pg/mL (<125.0)
[2020-06-07 11:16] LABS: ALT/SGPT < 5 U/L (<40); AST/SGOT 26 U/L (<32); Albumin 2.5 gm/dL (3.2-5.2); Albumin/Globulin Ratio 0.6 (1.0-2.3); Alkaline Phosphatase 140 U/L (39-117); Bilirubin,Total 0.3 mg/dL (0.1-1.0); Blood Urea Nitrogen 11 mg/dL (8-23); Calcium 8.7 mg/dL (8.6-10.4); Carbon Dioxide 27 mmol/L (22-30); Chloride 102 mmol/L (96-108); Globulin 4.1 gm/dL (2.2-3.7); Glomerular Filtration Rate 48; Glucose 264 mg/dL (70-105)
--- NOTE | 2020-06-07 13:12 | Cat Scan Report ---
CLINICAL INFORMATION: Sepsis COMPARISON: Chest, abdomen and pelvic CT 11/22/2019 TECHNIQUE: 0.625 mm helical slices were obtained from the lung apices through the subtrochanteric regions of the femurs. Following reconstruction, 2.5 mm sagittal, coronal and axial reformatted images were processed and reviewed at multiple windows and levels. 7 mm MIP reconstructions were obtained through the lungs to optimize nodule detection.The exam was performed using radiation dose optimization techniques including, but not limited to, automated exposure control, adjustment of the mA and/or kV according to patient size and use of iterative reconstruction technique. FINDINGS: Pulmonary parenchymal windows show mild centrilobular emphysematous changes featuring chronic bronchitis with elevated lung volumes wall thickening/dilatation of bronchi and a few small bullae scattered within the upper lobes. There is subsegmental atelectasis along both posterior upper and lower lobes and tiny bilateral pleural effusions. Multiple tiny nodules are seen, predominantly within the right lung, ranging up to 6 mm the superior segment right lower lobe. A few of these may been present on previous study but were difficult to detect due to motion artifact. There were not seen on the remote [address] CT. Mediastinal windows show the heart is moderately enlarged. Heavy lipomatous infiltration of the interatrial septum with a small ASD is noted. Calcification is noted in the mitral valve and scattered calcific plaque present in the coronary arteries. The noncontrast thoracic aorta and pulmonary arteries are normal in diameter. There is no adenopathy in the mediastinal hilar or axillary regions. Esophagus is grossly normal. An 18 mm nodule projecting the posterior mid right thyroid has been stable since 2007. Abdominal images show the noncontrasted liver is unremarkable. The gallbladder is surgically absent. Intrahepatic and common bile ducts are normal caliber: CBD is 6 mm. The left kidney has been resected. The noncontrasted right kidney, adrenal glands, spleen, pancreas and aorta are normal in size, configuration and attenuation without focal lesion. There is no free air, free fluid or adenopathy. [Left nephrectomy changes again seen A broad mouth lumbar hernia in the posterior left upper quadrant spans 9.5 cm and contains contains a nonincarcerated segment of colon and retroperitoneal fat. Pelvic images show hysterectomy and oophorectomy changes. [place] catheter is properly positioned in the urinary bladder which is decompressed. A 4 cm cyst in the left pelvic region has been stable since the 11/22/2019 exam. Colectomy changes again noted. The remainder of the colon small bowel and stomach are grossly normal. Bone windows show no osseous abnormality. IMPRESSION: 1. No definite sepsis source identified in the chest, abdomen or pelvis. 2. Multiple small pulmonary nodules, predominantly within the right lung, are more likely granulomas than metastases from unknown primary carcinoma. They were not optimally seen on previous studies. Consider chest CT follow-up in three months. 3. Mild centrilobular emphysema. 4. Moderate lumbar hernia in the posterior left upper quadrant containing nonincarcerated colon and retroperitoneal fat - no change. 5. 4 cm cyst in the left false pelvis likely of ovarian origin. Hysterectomy changes noted. 6. 4.7 cm high attenuation fluid collection in Camper's fascia left lower quadrant unchanged. Likely postsurgical. 7. Marked anterior abdominal wall musculature and paraspinous musculature atrophy most severe on the left side resulting in laxity of the peritoneal contents. 8. Moderate cardiomegaly with heavy lipomatous infiltration of the intra-atrial septum and a small ASD. Moderate calcific plaque in the coronary arteries. 9. 18 mm benign adenoma posterior right thyroid gland stable since 2007 Interpreted and Authenticated by: Ramses Kinney 06/07/20
[2020-06-07] MEDS ORDERED: FUROSEMIDE 40 MG/4 ML VIAL IV ONE (13:47)
[2020-06-07] MEDS ORDERED: HYDROCODONE/APAP 7.5/325MG TABLET PO ONE (15:18)
--- NOTE | 2020-06-07 17:31 | Internal Med History&Physical ---
HPI History of Present Illness Patient information: Note initiated : 06/07/20 at 5:18 pm Service Date, if different from initiated Date: [] Patient: Bobbi Murphy a 64 y/o F admitted on for possible sepsis. Chief Complaint: [] History of present illness: Ms. Murphy is a 64 year old F Presents the ED with weakness and falls. Patient says she has been declining over the past week or so. She was put on antibiotic over week ago for a potential urinary tract infection which she thought was the case. Urine looks pretty good today although as previously mentioned she has been on antibiotics. She had a CT of the head which was unremarkable. Chest x-ray was concern for possibly some pulmonary edema. She had a CT chest abdomen pelvis rule out sepsis and further evaluation of lungs which showed bronchitis emphysema atelectasis and some very small bilateral pleural effusions. Abdomen pelvis was unremarkable for acute process. In the ED she dipped 87% on room air. And was put on several liters of oxygen. When I visited with her had her on half a liter and she was satting well. She has lower extremity edema from time to time she says tach a little bit worse today. Complained of a cough over the past week and says at times is been productive of white sputum. She is felt wheezy as well. She has some chronic shortness of breath for that she is had for at least 6 months but then noticed increased shortness of breath for 5 days ago. She does have a history of asthma no diagnosed history of COPD although CT does show emphysema type changes. She has been taking all her medications has not missed any. Review of Systems: Pertinent positives above. Plus headache. Denies fever/chills/nausea/vomiting/chest or abdominal pain/diarrhea. Otherwise see above. PFSH PFSH All Active Problems (Updated 02/12/20 @ 15:10 by Kyra Montero) nursing home (current) use of opiate analgesic (Chronic) Other spondylosis with radiculopathy, cervical region (Chronic) Sepsis (Acute) Complex regional pain syndrome i of upper limb, bilateral (Chronic) Complex regional pain syndrome i of lower limb, bilateral (Chronic) Chronic pain (Chronic) Cervical spondylosis with radiculopathy (Chronic) Spondylosis without myelopathy or radiculopathy, lumbar region (Chronic) Knee osteoarthritis (Acute) S/P total knee arthroplasty (Acute) Urinary tract infection (Acute) Medical History (Updated 02/12/20 @ 15:10 by Kyra Montero) Cervical spondylosis with radiculopathy (Chronic) Chronic pain (Chronic) Complex regional pain syndrome i of lower limb, bilateral (Chronic) Complex regional pain syndrome i of upper limb, bilateral (Chronic) Knee osteoarthritis (Acute) nursing home (current) use of opiate analgesic (Chronic) Other spondylosis with radiculopathy, cervical region (Chronic) Spondylosis without myelopathy or radiculopathy, lumbar region (Chronic) Urinary tract infection (Acute) Surgical History (Updated 10/18/16 @ 14:10 by [employer]) S/P total knee arthroplasty (Acute) Family History (Updated 03/03/20 @ 12:02 by Rafaela Maxwell) Other No pertinent family history Social History (Updated 08/01/17 @ 09:32 by Kyra Bradley, RD, LD, CD) smoking status: Never smoker MEDS/ALLERGIES Home Medications and Allergies Home Medications Medication Instructions Recorded Confirmed Type Centrum Complete 1 ea PO QDAY 12/30/14 05/30/20 History Toujeo SoloStar U-300 Insulin 34 unit SQ HS 12/30/14 05/30/20 History albuterol sulfate [ProAir HFA] 1 - 2 puff IH PRN PRN 12/30/14 05/30/20 History [id number]-ldt-cod 1 cap PO PRN PRN 12/30/14 06/07/20 History cholecalciferol (vitamin D3) 2,000 unit PO QDAY 12/30/14 05/30/20 History cilostazol [Pletal] 200 mg PO BID 12/30/14 06/07/20 History potassium chloride 10 meq PO BIDCC 12/30/14 06/07/20 History zolpidem 10 mg PO HSP PRN 12/30/14 06/07/20 History rabeprazole [AcipHex] 20 mg PO DAILY 10/13/15 06/07/20 History aspirin 325 mg PO DAILY 02/07/16 05/30/20 History amiodarone 200 mg tablet 200 mg PO DAILY tab 09/09/19 06/07/20 History calcipotriene 0.005 % topical cream 1 applic TOPICAL .unknown g 09/09/19 05/30/20 History carbidopa 10 mg-levodopa 100 mg 1 tab PO BID tab 09/09/19 06/07/20 History tablet Eliquis 5 mg PO BID 11/23/19 06/07/20 History insulin aspart U-100 [Novolog See Protocol SUBCUT PRN PRN 11/23/19 06/07/20 History Flexpen U-100 Insulin] metoprolol succinate 100 mg PO QDAY 11/24/19 06/07/20 History venlafaxine 150 mg PO QDAY 11/24/19 06/07/20 History docusate sodium 100 mg PO BID #30 cap NS 12/01/19 05/30/20 Rx lisinopril 20 mg PO BID #60 tab NS 12/01/19 06/07/20 Rx pregabalin 50 mg PO BID #60 cap NS 12/01/19 06/07/20 Rx morphine 15 mg tablet,extended 15 mg PO Q12H #60 tab MDD 2 05/13/20 06/07/20 Rx release naloxone 4 mg/actuation nasal spray 4 mg INTRANASAL .COMPLEX PRN #2 05/13/20 06/07/20 Rx each hydrocodone 7.5 mg-acetaminophen 1 tab PO QID PRN #120 tab MDD 4 05/16/20 06/07/20 Rx 325 mg tablet Allergies Allergy/AdvReac Type Severity Reaction Status Date / Time propranolol [From Inderal LA] Allergy Severe Difficulty Verified 05/30/20 14:07 Breathing indomethacin [From Indocin] Allergy Mild Rash Verified 05/30/20 14:07 Iodinated Contrast Media Allergy Mild Hives Verified 05/30/20 14:07 [Iodinated Contrast Media - IV Dye] Penicillins Allergy Mild Rash Verified 05/30/20 14:07 NSAIDS (Non-Steroidal Allergy unknown Verified 05/30/20 14:07 Anti-Inflamma methadone [Methadone] AdvReac Intermediate Swelling Verified 05/30/20 14:07 clonidine [From Catapres] AdvReac Mild Hypertensio Verified 05/30/20 14:07 n fentanyl AdvReac Mild burning Verified 05/30/20 14:07 sesation throughout body gabapentin [From Neurontin] AdvReac Mild Abdominal Verified 05/30/20 14:07 Pain hydromorphone [From Dilaudid] AdvReac Mild HTN, Verified 05/30/20 14:07 Migraines pregabalin [From Lyrica] AdvReac Mild Edema Verified 05/30/20 14:07 Sulfa (Sulfonamide AdvReac Mild Unknown Verified 06/07/20 09:40 Antibiotics) ziconotide [From Prialt] AdvReac Mild Other Verified 05/30/20 14:07 EXAM Constitutional Vitals: Temp Pulse Resp BP Pulse Ox 97.2 F 64 13 158/63 97 06/07/20 09:34 06/07/20 17:01 06/07/20 17:01 06/07/20 17:01 06/07/20 17:01 Exam: General: Alert, Awake, No acute Distress,obese Eyes/N/T: EOMI, PERRL, Head/Neck: neck supple, normocephalic atraumatic CV: Regular RR today, No murmurs, normal s1/s2 Pulm: Clear b/l, no wheezing/rhonchi/rales Abd: soft, nontender, +BS x4 Ext: no clubbing/cyanosis, 2+ RLL edema Neuro: Alert, no focal deficits, moves all extremities, CN 2-12 grossly intact, symmetrical strength b/l upper/lower, sensations intact b/l upper/lower Skin: warm/dry DATA Data Completed and Pending Labs: Labs from last 24 hours 06/07/20 06/07/20 06/07/20 09:52 09:52 09:52 WBC RBC Hgb Hct MCV MCH MCHC RDW Plt Count MPV Neut % (Auto) Lymph % (Auto) Emery % (Auto) Eos % (Auto) Baso % (Auto) Lymph # (Auto) Emery # (Auto) Eos # (Auto) Baso # (Auto) Absolute Neutrophils VBG Lactic Acid 2.6 H Sodium 135 Potassium 4.2 Chloride 102 Carbon Dioxide 27 Anion Gap 6.0 L BUN 11 Creatinine 1.2 H GFR Calculation 48 Glucose 264 H Calcium 8.7 Total Bilirubin 0.3 AST 26 ALT < 5 Alkaline Phosphatase 140 H Troponin T < 0.01 NT-Pro-B Natriuret Pep 484.3 H Total Protein 6.6 Albumin 2.5 L Globulin 4.1 H Albumin/Globulin Ratio 0.6 L Urine Color Urine Appearance Urine pH Ur Specific [place] Urine Protein Urine Glucose (UA) Urine Ketones Urine Occult Blood Urine Nitrate Urine Bilirubin Urine Urobilinogen Ur Leukocyte Esterase Urine RBC Urine WBC Ur Squamous Epith Cells Urine Bacteria Urine Mucus Ur Culture Indicated? 06/07/20 06/07/20 09:52 09:51 WBC 5.7 RBC 4.03 Hgb 9.8 L Hct 31.7 L MCV 78.7 L MCH 24.3 L MCHC 30.9 L RDW 15.3 H Plt Count 235 MPV 10.8 H Neut % (Auto) 62.4 Lymph % (Auto) 26.0 Emery % (Auto) 8.1 Eos % (Auto) 2.3 Baso % (Auto) 1.2 Lymph # (Auto) 1.48 L Emery # (Auto) 0.46 Eos # (Auto) 0.13 Baso # (Auto) 0.07 Absolute Neutrophils 3.56 VBG Lactic Acid Sodium Potassium Chloride Carbon Dioxide Anion Gap BUN Creatinine GFR Calculation Glucose Calcium Total Bilirubin AST ALT Alkaline Phosphatase Troponin T NT-Pro-B Natriuret Pep Total Protein Albumin Globulin Albumin/Globulin Ratio Urine Color Yellow Urine Appearance Clear Urine pH 7.0 Ur Specific [place] 1.012 Urine Protein 100 A Urine Glucose (UA) 150 A Urine Ketones Negative Urine Occult Blood 0.03 Urine Nitrate Negative Urine Bilirubin Negative Urine Urobilinogen Negative Ur Leukocyte Esterase Negative Urine RBC 18 H Urine WBC 2 Ur Squamous Epith Cells 0 Urine Bacteria None Urine Mucus Few A Ur Culture Indicated? No A/P Narrative A/P Narrative: A: *Acute hypoxic respiratory failure: multifactorial from acute on possibly chronic bronchitis / Atelectasis from restrictive component d/t obesity / ?cardiac component -2L in ED, now 0.5 when I examined *Bronchitis, suspect COPD w/centrilobular emphysema: *Gen Weakness/falling: is on narcotics, always potential contributor *HTN urgency: *DM/neuropathy: *CKD III: *Anemia, chronic: *PAF: On amiodarone and apixaban *Depression/anxiety: *Morbid obesity: *PVD: On cilostazol/ASA *GERD: *Complex regional pain syndrome: Follows with Dr. Bernard *on sinemet for tremors: started outpt empirically until seen by neurology *Chronic BEAUCHAMP's *incidental small pulm nodules on CT P: -empiric abx -Nebs, IS/Acapella -o2 support wean -echo, monitor Io's -RVP/covid pending -HENNY/elevate legs -cont home amiodarone/BB/aspirin/statin/cilostazol -hold ACEI for now and f/u renal fxn -basal and ssi -pt/ot -f/u CT chest in 3-months to evaluate pulm nodules -ppx:apixaban/home ppi DNR Time Spent With Patient Time: Total time spent is greater than 50% in coordination of care (as documented) at patient's floor/unit and/or counseling patient:
[2020-06-07] MEDS ORDERED: ONDANSETRON 4 MG/2 ML VIAL IV PRN (18:57)
[2020-06-07] MEDS ORDERED: DEXTROSE 31 GM ORAL.SUSP PO PRN (18:57)
[2020-06-07] MEDS ORDERED: hydrALAZINE 20 MG/ML VIAL IV PRN (18:57)
[2020-06-07] MEDS ORDERED: IPRATROPIUM/ALBUTEROL 3 ML AMPUL.NEB NEB PRN (18:57)
[2020-06-07] MEDS ORDERED: SENNOSIDES 1 TABLET PO PRN (18:57)
[2020-06-07] MEDS ORDERED: MAGNESIUM SULFATE 2 GM/50 ML BAG IV PRN (18:57)
[2020-06-07] MEDS ORDERED: NALOXONE 4 MG INTRANASAL PRN (18:57)
[2020-06-07] MEDS ORDERED: DEXTROSE 50% 50 ML VIAL IV PRN (18:57)
[2020-06-07] MEDS ORDERED: POTASSIUM CHLORIDE 20 MEQ TABLET PO PRN ×2 (18:57)
[2020-06-07] MEDS ORDERED: HYDROCODONE/APAP 7.5/325MG TABLET PO PRN (18:57)
[2020-06-07] MEDS ORDERED: POTASSIUM CHLORIDE 40 MEQ in DEXTROSE 5% IN WATER 500 ML IV PRN (18:57)
[2020-06-07] MEDS ORDERED: POLYETHYLENE GLYCOL 3350 17 GM PACKET PO PRN (18:57)
[2020-06-07] MEDS ORDERED: LACTULOSE 20 GM/30 ML ORAL.SOL PO PRN (18:57)
[2020-06-07] MEDS ORDERED: ACETAMINOPHEN 325 MG TABLET PO PRN (18:57)
[2020-06-07] MEDS ORDERED: LABETALOL 5 MG/ML ML IV PRN (18:57)
[2020-06-07] MEDS: morphine 15 MG TAB.SR.12H PO SCH (19:31)
[2020-06-07] MEDS: IPRATROPIUM/ALBUTEROL 3 ML AMPUL.NEB NEB SCH (19:40)
[2020-06-07] MEDS: LEVOFLOXACIN 750 MG/150 ML BAG IV SCH (20:46)
[2020-06-07] MEDS: DOCUSATE SODIUM 100 MG CAPSULE PO SCH (21:06)
[2020-06-07] MEDS: APIXABAN 5 MG TABLET PO SCH (21:07)
[2020-06-07] MEDS: INSULIN LISPRO 1 UNIT/0.01 ML UNIT SQ SCH (21:07)
[2020-06-07] MEDS: CILOSTAZOL 100 MG TABLET PO SCH (21:08)
[2020-06-07] MEDS: CARBIDOPA/LEVODOPA 10/100 TABLET PO SCH (21:09)
[2020-06-07] MEDS: 0.9 % SODIUM CHLORIDE 10 ML SYRINGE IV SCH (21:09)
[2020-06-07] MEDS: PREGABALIN 25 MG CAPSULE PO SCH (21:16)
[2020-06-08] MEDS: 0.9 % SODIUM CHLORIDE 10 ML SYRINGE IV SCH ×3 (06:00→21:21)
[2020-06-08] MEDS: IPRATROPIUM/ALBUTEROL 3 ML AMPUL.NEB NEB SCH ×3 (06:00→19:01)
[2020-06-08 07:07] LABS: ALT/SGPT 6 U/L (<40); AST/SGOT 19 U/L (<32); Albumin 2.4 gm/dL (3.2-5.2); Albumin/Globulin Ratio 0.7 (1.0-2.3); Alkaline Phosphatase 130 U/L (39-117); Basophils % (Auto) 1.5 % (0.0-2.0); Bilirubin,Direct < 0.2 mg/dL (<0.3); Bilirubin,Total 0.3 mg/dL (0.1-1.0); Blood Urea Nitrogen 12 mg/dL (8-23); Calcium 8.4 mg/dL (8.6-10.4); Carbon Dioxide 31 mmol/L (22-30); Chloride 96 mmol/L (96-108); Eosinophils % (Auto) 5.9 % (0.0-7.0); Globulin 3.6 gm/dL (2.2-3.7); Glomerular Filtration Rate 48; Glucose 115 mg/dL (70-105); Hematocrit 30.6 % (36.0-48.0); Hemoglobin 9.2 g/dL (12.0-15.0); Lactate Dehydrogenase 218 U/L (135-225); Lymphocytes # (Auto) 2.49 K/mcL (1.50-4.80); Lymphocytes % (Auto) 36.7 % (15.0-49.0); Mean Cell Volume 80.7 fL (80.0-100.0); Mean Corpuscular HGB Conc 30.1 g/dL (31.0-36.0); Mean Platelet Volume 11.3 fL (7.4-10.4); Monocytes # (Auto) 0.77 K/mcL (0.10-0.90); Monocytes % (Auto) 11.3 % (1.0-12.0); Neutrophils % (Auto) 44.6 % (38.0-78.0); Phosphorous 3.2 mg/dL (2.5-4.5); Platelet Count 246 K/mcL (140-440); RBC 3.79 M/mcL (4.00-5.20); Red Cell Distribution Width 15.5 % (11.5-14.5); Triglycerides 112 mg/dL (<150); WBC 6.8 K/mcL (4.5-11.0)
--- NOTE | 2020-06-08 07:21 | Internal Med Progress Note ---
SUBJECTIVE Subjective Patient information: Note initiated : 06/08/20 at 7:16 am Service Date, if different from initiated Date: [] Patient: Bobbi Murphy a 64 y/o F admitted on 06/07/20 for possible sepsis. Chief Complaint: [] Interval history: History of present illness: Ms. Murphy is a 64 year old F Presents the ED with weakness and falls. Patient says she has been declining over the past week or so. She was put on antibiotic over week ago for a potential urinary tract infection which she thought was the case. Urine looks pretty good today although as previously mentioned she has been on antibiotics. She had a CT of the head which was unremarkable. Chest x-ray was concern for possibly some pulmonary edema. She had a CT chest abdomen pelvis rule out sepsis and further evaluation of lungs which showed bronchitis emphysema atelectasis and some very small bilateral pleural effusions. Abdomen pelvis was unremarkable for acute process. In the ED she dipped 87% on room air. And was put on several liters of oxygen. When I visited with her had her on half a liter and she was satting well. She has lower extremity edema from time to time she says tach a little bit worse today. Complained of a cough over the past week and says at times is been productive of white sputum. She is felt wheezy as well. She has some chronic shortness of breath for that she is had for at least 6 months but then noticed increased shortness of breath for 5 days ago. She does have a history of asthma no diagnosed history of COPD although CT does show emphysema type changes. She has been taking all her medications has not missed any. 1/6 Poor sleep but nothing in particular other than first night hospital per the patient. No new complaints. She has a mild dry cough. She has minimal dyspnea. She is on room air while awake but did require some oxygen while sleeping. Has never been evaluated for obstructive sleep apnea. Review of Systems: denies headache/fever/chills/nausea/vomiting/chest or abdominal pain/diarrhea. Otherwise see above. Constitutional Vitals: Vital Signs Temp Pulse Resp BP Pulse Ox 99.2 F H 57 L 14 138/58 95 06/08/20 00:01 06/08/20 06:09 06/08/20 06:09 06/08/20 06:01 06/08/20 06:09 Period Temp Pulse Resp BP Sys/Nichols Pulse Ox Last 24 Hr 97.2 F-99.2 F 55-70 11-24 96-191/50-85 87-100 Intake and Output 06/07/20 06/08/20 06/08/20 21:59 05:59 13:59 Intake Total 625 Output Total 1375 750 Balance -1375 -125 Weight 147.191 kg Intake & Output: Intake & Output 06/07/20 06/08/20 06/08/20 21:59 05:59 13:59 Intake Total 625 Output Total 1375 750 Balance -1375 -125 Weight 147.191 kg Intake: IV 150 Oral 475 Output: Urine Catheter Amount 1375 750 Other: Meal snack Percent of Meal Consumed 100% Feeding Ability Independent Urine Appearance Cloudy Sediment Uretheral ([place]) Cloudy Sediment Urine Color Blood Tinged Uretheral ([place]) Blood Tinged Urine Odor Normal Exam: General: Alert, Awake, No acute Distress,obese Eyes/N/T: EOMI, Head/Neck: neck supple, CV: Regular RR today, No murmurs, Pulm: Clear b/l, no wheezing/rhonchi/rales Abd: soft, nontender, +BS x4 Ext: no clubbing/cyanosis, 1-2+ RLL edema Neuro: Alert, no focal deficits, moves all extremities, Skin: warm/dry OBJ DATA Labs CBC & Chem 7: 06/08/20 05:04 06/08/20 05:04 Labs: Abnormal Lab Results 06/08/20 06/08/20 06/07/20 05:04 05:04 09:52 RBC 3.79 L Hgb 9.2 L Hct 30.6 L MCV MCH 24.3 L MCHC 30.1 L RDW 15.5 H MPV 11.3 H Lymph # (Auto) VBG Lactic Acid 2.6 H Carbon Dioxide 31 H Anion Gap 7.0 L Creatinine 1.2 H Glucose 115 H Calcium 8.4 L GGT 90 H Alkaline Phosphatase 130 H NT-Pro-B Natriuret Pep Albumin 2.4 L Globulin Albumin/Globulin Ratio 0.7 L Urine Protein Urine Glucose (UA) Urine RBC Urine Mucus 06/07/20 06/07/20 06/07/20 09:52 09:52 09:51 RBC Hgb 9.8 L Hct 31.7 L MCV 78.7 L MCH 24.3 L MCHC 30.9 L RDW 15.3 H MPV 10.8 H Lymph # (Auto) 1.48 L VBG Lactic Acid Carbon Dioxide Anion Gap 6.0 L Creatinine 1.2 H Glucose 264 H Calcium GGT Alkaline Phosphatase 140 H NT-Pro-B Natriuret Pep 484.3 H Albumin 2.5 L Globulin 4.1 H Albumin/Globulin Ratio 0.6 L Urine Protein 100 A Urine Glucose (UA) 150 A Urine RBC 18 H Urine Mucus Few A Meds: Medications Acetaminophen (Tylenol) 650 mg PO Q6HP PRN PRN Reason: PAIN/FEVER > 101 Hydrocodone Bitart/Acetaminophen ([place] 7.5/325mg) 1 tab PO QID PRN; Protocol PRN Reason: Pain Albuterol/Ipratropium (Duoneb) 3 ml NEB Q4HP PRN PRN Reason: Shortness Of Breath Albuterol/Ipratropium (Duoneb) 3 ml NEB Q8H [facility] Last Admin: 06/08/20 06:00 Dose: Not Given Documented by: Amiodarone HCl (Cordarone) 200 mg PO [facility] Apixaban (Eliquis) 5 mg PO BID [facility] Last Admin: 06/07/20 21:07 Dose: 5 mg Documented by: Aspirin (Aspirin) 81 mg PO DAILY [facility] Carbidopa/Levodopa (Sinemet 10/100) 1 tab PO BID [facility] Last Admin: 06/07/20 21:09 Dose: 1 tab Documented by: Cilostazol (Pletal) 200 mg PO BIDAC [facility] Last Admin: 06/07/20 21:08 Dose: 200 mg Documented by: Dextrose (Dextrose 50%) 0 ml IV UD PRN PRN Reason: Hypoglycemia Diagnostic Test (Pha) (Accu-Chek) 1 each FS ACHS [facility] Last Admin: 06/07/20 21:06 Dose: 1 each Documented by: Docusate Sodium (Colace) 100 mg PO BID [facility] Last Admin: 06/07/20 21:06 Dose: Not Given Documented by: Glucose (Insta-Glucose) 15 gm PO PRN PRN PRN Reason: Hypoglycemia Hydralazine HCl (Apresoline) 0 mg IV Q2HP PRN PRN Reason: Hypertension Potassium Chloride 40 meq/ (Dextrose) 520 mls @ 130 mls/hr IV UD PRN PRN Reason: Potassium < 3 Magnesium Sulfate (Magnesium Sulfate) 2 gm in 50 mls @ 50 mls/hr IV UD PRN PRN Reason: Magnesium </= 1.6 Levofloxacin (Levaquin) 750 mg in 150 mls @ 100 mls/hr IV Q24H [facility]; Protocol Last Infusion: 06/07/20 22:16 Dose: Infused Documented by: Insulin Human Lispro (Humalog) 0 unit SQ ACHS [facility]; Protocol Last Admin: 06/07/20 21:07 Dose: 4 units Documented by: Labetalol HCl (Trandate) 0 mg IV Q2HP PRN PRN Reason: Hypertension Lactulose (Cephulac) 20 gm PO DAILYP PRN PRN Reason: Constipation Metoprolol Succinate (Toprol) 100 mg PO QDAY [facility] Morphine Sulfate (Ms Contin) 15 mg PO Q12H [facility]; Protocol Last Admin: 06/07/20 19:31 Dose: 15 mg Documented by: Non-Formulary Medication (Aqmrywlgpv-Jrsaouvjcr-Rna-Cod) 1 cap PO PRN PRN PRN Reason: Headache Non-Formulary Medication (Naloxone [Narcan]) 4 mg INTRANASAL .COMPLEX PRN PRN Reason: opioid overdose Ondansetron HCl (Zofran) 4 mg IV Q4HP PRN PRN Reason: Nausea And Vomiting Pantoprazole Sodium (Protonix) 40 mg PO QAMAC [facility] Polyethylene Glycol (Miralax) 17 gm PO DAILYP PRN PRN Reason: Constipation Potassium Chloride (Kdur) 10 meq PO BIDCC [facility] Potassium Chloride (Kdur) 40 meq PO UD PRN PRN Reason: Potssium is 3-3.5 Potassium Chloride (Kdur) 40 meq PO UD PRN PRN Reason: Potassium < 3 Pregabalin (Lyrica) 50 mg PO BID [facility] Last Admin: 06/07/20 21:16 Dose: 50 mg Documented by: Senna (Senokot) 2 tab PO DAILYP PRN PRN Reason: Constipation Sodium Chloride (Saline Flush) 10 ml IV Q8 [facility] Last Admin: 06/08/20 06:00 Dose: 10 ml Documented by: Venlafaxine HCl (Effexor Xr) 150 mg PO QDAY [facility] Zolpidem Tartrate (Ambien) 10 mg PO HSP PRN PRN Reason: Insomnia A/P Narrative A/P Narrative: A: *Acute hypoxic respiratory failure: multifactorial from acute on likely chronic bronchitis / Atelectasis from restrictive component d/t obesity / ?cardiac component -2L NC in ED, now room air while awake but did need supp while sleeping *Acute Bronchitis, suspect COPD w/centrilobular emphysema: -RVP/covid neg *Gen Weakness/falling: is on narcotics, always potential contributor *HTN urgency: improved *DM/neuropathy: *CKD III: *Anemia, chronic: *PAF: On amiodarone and apixaban *Depression/anxiety: *Morbid obesity: *PVD: On cilostazol/ASA *GERD: *Complex regional pain syndrome: Follows with Dr. Bernard *on sinemet for tremors: started outpt empirically until seen by neurology *Chronic BEAUCHAMP's *Likely ALISSA: *incidental small pulm nodules on CT P: -empiric abx -Nebs, IS/Acapella -o2 support wean -echo pending, monitor Io's -HENNY/elevate legs -cont home amiodarone/BB/aspirin/statin/cilostazol -hold ACEI for now and f/u renal fxn -basal and ssi -pt/ot -f/u with pulmonology outpt for sleep study -f/u CT chest in 3-months to evaluate pulm nodules -ppx:apixaban/home ppi DNR Time Spent With Patient Time: Total time spent is greater than 50% in coordination of care (as documented) at patient's floor/unit and/or counseling patient: QUALITY VTE Deep Vein Thrombosis/Pulmonary Embolism Present on Admission: No
[2020-06-08] MEDS: AMIODARONE HCL 200 MG TABLET PO SCH (08:05)
[2020-06-08] MEDS: PANTOPRAZOLE 40 MG TABLET PO SCH (08:06)
[2020-06-08] MEDS: VENLAFAXINE 150 MG CAP.XL.24H PO SCH (08:06)
[2020-06-08] MEDS: POTASSIUM CHLORIDE 10 MEQ TABLET PO SCH ×2 (08:07→17:58)
[2020-06-08] MEDS: APIXABAN 5 MG TABLET PO SCH ×2 (08:07→21:16)
[2020-06-08] MEDS: CILOSTAZOL 100 MG TABLET PO SCH ×2 (08:07→17:58)
[2020-06-08] MEDS: ASPIRIN 81 MG TAB.CHEW PO SCH (08:07)
[2020-06-08] MEDS ORDERED: BUTALB/ACETAMINOPHEN/CAFFEINE 1 TABLET PO PRN (08:07)
[2020-06-08] MEDS: CARBIDOPA/LEVODOPA 10/100 TABLET PO SCH ×2 (08:07→21:16)
[2020-06-08] MEDS: INSULIN LISPRO 1 UNIT/0.01 ML UNIT SQ SCH ×4 (08:08→21:17)
[2020-06-08] MEDS: DOCUSATE SODIUM 100 MG CAPSULE PO SCH ×2 (08:08→21:30)
[2020-06-08] MEDS: morphine 15 MG TAB.SR.12H PO SCH ×2 (08:09→19:57)
[2020-06-08] MEDS: PREGABALIN 25 MG CAPSULE PO SCH ×2 (08:09→21:19)
[2020-06-08] MEDS ORDERED: METOPROLOL SUCCINATE 100 MG PO SCH (09:00)
[2020-06-08] MEDS ORDERED: predniSONE 20 MG TABLET PO ONE (09:12)
--- NOTE | 2020-06-08 09:12 | Discharge Summary ---
Discharge Provider Provider Patient information: Note initiated : 06/08/20 at 9:10 am Service Date, if different from initiated Date: [] Patient: Bobbi Murphy 64 y/o F admitted on 06/07/20 for possible sepsis. Chief Complaint: [] Date of admission: 06/07/20 18:49 Primary care physician: Derrek Keen Consults: 06/07/20 Consult to Physician [CONS] Stat Comment: Consulting Provider: Chris Maurer Reason For Exam: Physician to Consult Discharge Meds Discharge Medications Home Medications Centrum Complete 1 ea PO QDAY 12/30/14 [History Confirmed 05/30/20 Last Taken 06/03/18] Toujeo SoloStar U-300 Insulin 38 unit SQ HS 12/30/14 [History Confirmed 05/30/20 Last Taken 01/28/17] albuterol sulfate [ProAir HFA] 1 - 2 puff IH PRN PRN 12/30/14 [History Confirmed 05/30/20 Last Taken 01/28/17] mjmlvubevn-vvheumppzh-dam-cod 1 cap PO PRN PRN 12/30/14 [History Confirmed 06/07/20 Last Taken 01/28/17] cholecalciferol (vitamin D3) 2,000 unit PO QDAY 12/30/14 [History Confirmed 06/08/20 Last Taken 06/07/20] cilostazol [Pletal] 200 mg PO BID 12/30/14 [History Confirmed 06/07/20 Last Taken 01/28/17] potassium chloride 10 meq PO BIDCC 12/30/14 [History Confirmed 06/07/20 Last Taken 01/28/17] zolpidem 10 mg PO HSP PRN 12/30/14 [History Confirmed 06/07/20 Last Taken 01/28/17] rabeprazole [AcipHex] 20 mg PO DAILY 10/13/15 [History Confirmed 06/07/20 Last Taken 01/28/17] aspirin 81 mg PO DAILY 02/07/16 [History Confirmed 05/30/20 Last Taken 01/28/17] amiodarone 200 mg tablet 200 mg PO DAILY tab 09/09/19 [History Confirmed 06/07/20 Last Taken Unknown] calcipotriene 0.005 % topical cream 1 applic TOPICAL .unknown g 09/09/19 [His tory Confirmed 05/30/20 Last Taken Unknown] carbidopa 10 mg-levodopa 100 mg tablet 1 tab PO BID tab 09/09/19 [History Confirmed 06/07/20 Last Taken Unknown] Eliquis 5 mg PO BID 11/23/19 [History Confirmed 06/07/20 Last Taken Unknown] insulin aspart U-100 [Novolog Flexpen U-100 Insulin] See Protocol SUBCUT PRN PRN 11/23/19 [History Confirmed 06/07/20 Last Taken Unknown] metoprolol succinate 100 mg PO QDAY 11/24/19 [History Confirmed 06/07/20 Last Taken Unknown] venlafaxine 150 mg PO QDAY 11/24/19 [History Confirmed 06/07/20 Last Taken Unknown] lisinopril 20 mg PO BID #60 tab NS 12/01/19 [Rx Confirmed 06/07/20 Last Taken Unknown] pregabalin 50 mg PO BID #60 cap NS 12/01/19 [Rx Confirmed 06/07/20 Last Taken Unknown] morphine 15 mg tablet,extended release 15 mg PO Q12H #60 tab MDD 2 05/13/20 [Rx Confirmed 06/07/20 Last Taken Unknown] naloxone 4 mg/actuation nasal spray 4 mg INTRANASAL .COMPLEX PRN #2 each 05/13/20 [Rx Confirmed 06/07/20 Last Taken Unknown] hydrocodone 7.5 mg-acetaminophen 325 mg tablet 1 tab PO QID PRN #120 tab MDD 4 05/16/20 [Rx Confirmed 06/07/20 Last Taken Unknown] COURSE Hospital Course Hospital course: History of present illness: Ms. Murphy is a 64 year old F Presents the ED with weakness and falls. Patient says she has been declining over the past week or so. She was put on antibiotic over week ago for a potential urinary tract infection which she thought was the case. Urine looks pretty good today although as previously mentioned she has been on antibiotics. She had a CT of the head which was unremarkable. Chest x-ray was concern for possibly some pulmonary edema. She had a CT chest abdomen pelvis rule out sepsis and further evaluation of lungs which showed bronchitis emphysema atelectasis and some very small bilateral pleural effusions. Abdomen pelvis was unremarkable for acute process. In the ED she dipped 87% on room air. And was put on several liters of oxygen. When I visited with her had her on half a liter and she was satting well. She has lower extremity edema from time to time she says tach a little bit worse today. Complained of a cough over the past week and says at times is been productive of white sputum. She is felt wheezy as well. She has some chronic shortness of breath for that she is had for at least 6 months but then noticed increased shortness of breath for 5 days ago. She does have a history of asthma no diagnosed history of COPD although CT does show emphysema type changes. She has been taking all her medications has not missed any. 1/6 Poor sleep but nothing in particular other than first night hospital per the patient. No new complaints. She has a mild dry cough. She has minimal dyspnea. She is on room air while awake but did require some oxygen while sleeping. Has never been evaluated for obstructive sleep apnea. A: *Acute hypoxic respiratory failure: multifactorial from acute on likely chronic bronchitis / Atelectasis from restrictive component d/t obesity / ?cardiac component (doubt) -2L NC in ED, now room air while awake but did need supp while sleeping *Acute Bronchitis, suspect COPD w/centrilobular emphysema: -RVP/covid neg *Gen Weakness/falling: is on narcotics, always potential contributor *HTN urgency: improved *DM/neuropathy: *CKD III: *Anemia, chronic: *PAF: On amiodarone and apixaban *Depression/anxiety: *Morbid obesity: *PVD: On cilostazol/ASA *GERD: *Complex regional pain syndrome: Follows with Dr. Bernard *on sinemet for tremors: started outpt empirically until seen by neurology *Chronic BEAUCHAMP's *Likely ALISSA: *incidental small pulm nodules on CT Discharge diagnosis: Acute bronchitis hypoxic respite failure generalized weakness deconditionin Secondary discharge diagnosis: Hypertension diabetes with neuropathy chronic kidney disease chronic anemia paroxysmal H fibrillation depression anxiety morbi d obesity peripheral vascular disease GERD complex regional pain syndrome chronic headaches likely obstructive sleep apnea Time Spent with Patient Time attestation: Total time spent providing and/or coordinating discharge services: Time spent: Greater than 30 minutes EXAM Constitutional Vitals: Temp Pulse Resp BP Pulse Ox 98.4 F 62 19 133/59 93 06/08/20 08:01 06/08/20 08:01 06/08/20 08:52 06/08/20 08:01 06/08/20 08:01 Discharge Data Data Completed and Pending Labs on day of discharge: Labs from last 24 hours 06/08/20 06/08/20 06/08/20 05:04 05:04 05:04 WBC 6.8 RBC 3.79 L Hgb 9.2 L Hct 30.6 L MCV 80.7 MCH 24.3 L MCHC 30.1 L RDW 15.5 H Plt Count 246 MPV 11.3 H Neut % (Auto) 44.6 Lymph % (Auto) 36.7 White % (Auto) 11.3 Eos % (Auto) 5.9 Baso % (Auto) 1.5 Lymph # (Auto) 2.49 White # (Auto) 0.77 Eos # (Auto) 0.40 Baso # (Auto) 0.10 Absolute Neutrophils 3.03 VBG Lactic Acid Sodium 134 Potassium 4.2 Chloride 96 Carbon Dioxide 31 H Anion Gap 7.0 L BUN 12 Creatinine 1.2 H GFR Calculation 48 Glucose 115 H Uric Acid 7.0 Calcium 8.4 L Phosphorus 3.2 Magnesium 1.8 Total Bilirubin 0.3 Direct Bilirubin < 0.2 GGT 90 H AST 19 ALT 6 Alkaline Phosphatase 130 H Lactate Dehydrogenase 218 Troponin T C-Reactive Protein 2.20 H NT-Pro-B Natriuret Pep Total Protein 6.0 Albumin 2.4 L Globulin 3.6 Albumin/Globulin Ratio 0.7 L Triglycerides 112 Procalcitonin Urine Color Urine Appearance Urine pH Ur Specific [place] Urine Protein Urine Glucose (UA) Urine Ketones Urine Occult Blood Urine Nitrate Urine Bilirubin Urine Urobilinogen Ur Leukocyte Esterase Urine RBC Urine WBC Ur Squamous Epith Cells Urine Bacteria Urine Mucus Ur Culture Indicated? 06/07/20 06/07/20 06/07/20 09:52 09:52 09:52 WBC RBC Hgb Hct MCV MCH MCHC RDW Plt Count MPV Neut % (Auto) Lymph % (Auto) White % (Auto) Eos % (Auto) Baso % (Auto) Lymph # (Auto) White # (Auto) Eos # (Auto) Baso # (Auto) Absolute Neutrophils VBG Lactic Acid 2.6 H Sodium Potassium Chloride Carbon Dioxide Anion Gap BUN Creatinine GFR Calculation Glucose Uric Acid Calcium Phosphorus Magnesium Total Bilirubin Direct Bilirubin GGT AST ALT Alkaline Phosphatase Lactate Dehydrogenase Troponin T < 0.01 C-Reactive Protein NT-Pro-B Natriuret Pep Total Protein Albumin Globulin Albumin/Globulin Ratio Triglycerides Procalcitonin 0.07 Urine Color Urine Appearance Urine pH Ur Specific [place] Urine Protein Urine Glucose (UA) Urine Ketones Urine Occult Blood Urine Nitrate Urine Bilirubin Urine Urobilinogen Ur Leukocyte Esterase Urine RBC Urine WBC Ur Squamous Epith Cells Urine Bacteria Urine Mucus Ur Culture Indicated? 06/07/20 06/07/20 06/07/20 09:52 09:52 09:51 WBC 5.7 RBC 4.03 Hgb 9.8 L Hct 31.7 L MCV 78.7 L MCH 24.3 L MCHC 30.9 L RDW 15.3 H Plt Count 235 MPV 10.8 H Neut % (Auto) 62.4 Lymph % (Auto) 26.0 White % (Auto) 8.1 Eos % (Auto) 2.3 Baso % (Auto) 1.2 Lymph # (Auto) 1.48 L White # (Auto) 0.46 Eos # (Auto) 0.13 Baso # (Auto) 0.07 Absolute Neutrophils 3.56 VBG Lactic Acid Sodium 135 Potassium 4.2 Chloride 102 Carbon Dioxide 27 Anion Gap 6.0 L BUN 11 Creatinine 1.2 H GFR Calculation 48 Glucose 264 H Uric Acid Calcium 8.7 Phosphorus Magnesium Total Bilirubin 0.3 Direct Bilirubin GGT AST 26 ALT < 5 Alkaline Phosphatase 140 H Lactate Dehydrogenase Troponin T C-Reactive Protein NT-Pro-B Natriuret Pep 484.3 H Total Protein 6.6 Albumin 2.5 L Globulin 4.1 H Albumin/Globulin Ratio 0.6 L Triglycerides Procalcitonin Urine Color Yellow Urine Appearance Clear Urine pH 7.0 Ur Specific [place] 1.012 Urine Protein 100 A Urine Glucose (UA) 150 A Urine Ketones Negative Urine Occult Blood 0.03 Urine Nitrate Negative Urine Bilirubin Negative Urine Urobilinogen Negative Ur Leukocyte Esterase Negative Urine RBC 18 H Urine WBC 2 Ur Squamous Epith Cells 0 Urine Bacteria None Urine Mucus Few A Ur Culture Indicated? No Discharge Plan Patient/Caregiver Discharge Instructions Activity: increase activity as tolerated Diet: Consistent Carbohydrate Activity Restrictions/Additional Instructions: Referral to see public works commissioner in 1 to 2 weeks for likely obstructive sleep apnea and COPD evaluation Prescriptions: Continued Narcan 4 mg/actuation spray,non-aerosol 4 mg INTRANASAL .COMPLEX PRN (Reason: opioid overdose) Qty: 2 RF: 0 morphine 15 mg tablet extended release 15 mg PO Q12H MDD 2 Qty: 60 RF: 0 carbidopa-levodopa 10-100 mg tablet 1 tab PO BID RF: 0 amiodarone 200 mg tablet 200 mg PO DAILY RF: 0 calcipotriene [Dovonex] 0.005 % cream 1 applic TOPICAL .unknown RF: 0 hydrocodone-acetaminophen 7.5-325 mg tablet 1 tab PO QID MDD 4 PRN (Reason: Pain) Qty: 120 RF: 0 cilostazol [Pletal] 50 MG tablet 200 mg PO BID RF: 0 potassium chloride 10 MEQ tablet extended release 10 meq PO BIDCC RF: 0 hqgxielegk-bitnpuxgan-mct-cod 1 EACH capsule 1 cap PO PRN PRN (Reason: Headache) RF: 0 zolpidem 10 MG tablet 10 mg PO HSP PRN (Reason: Insomnia) RF: 0 Toujeo SoloStar U-300 Insulin 300 UNIT/ML insulin pen 38 unit SQ HS RF: 0 cholecalciferol (vitamin D3) 2,000 UNIT tablet 2,000 unit PO QDAY RF: 0 Centrum Complete 1 EACH tablet 1 ea PO QDAY RF: 0 albuterol sulfate [ProAir HFA] 8.5 GM HFA aerosol inhaler 1 - 2 puff IH PRN PRN (Reason: Shortness Of Breath) RF: 0 rabeprazole [AcipHex] 20 MG tablet,delayed release (DR/EC) 20 mg PO DAILY RF: 0 aspirin 325 MG tablet,delayed release (DR/EC) 81 mg PO DAILY RF: 0 Eliquis 5 mg tablet 5 mg PO BID RF: 0 insulin aspart U-100 [Novolog Flexpen U-100 Insulin] 100 unit/mL (3 mL) insulin pen See Protocol unit subcut PRN PRN (Reason: Hyperglycemia) RF: 0 venlafaxine 150 mg Tablet Extended Release 24hr 150 mg PO QDAY RF: 0 metoprolol succinate 50 mg Capsule,Sprinkle,Er 24hr 100 mg PO QDAY RF: 0 lisinopril 20 mg Tablet 20 mg PO BID Qty: 60 RF: 2 pregabalin 25 mg Capsule 50 mg PO BID Qty: 60 RF: 1 Follow Up Plan Follow up with: Derrek Keen MD [Primary Care Provider] - Patient Disposition: Home, Self-Care Prognosis: Fair QUALITY VTE Deep Vein Thrombosis/Pulmonary Embolism Present on Admission: No
[2020-06-08] MEDS: METOPROLOL SUCCINATE 50 MG TAB.XL.24H PO SCH (10:20)
[2020-06-08] MEDS: LEVOFLOXACIN 750 MG/150 ML BAG IV SCH (14:00)
[2020-06-08] MEDS: ZOLPIDEM 5 MG TABLET PO PRN (21:16)
[2020-06-09] MEDS: IPRATROPIUM/ALBUTEROL 3 ML AMPUL.NEB NEB SCH ×3 (03:10→19:32)
[2020-06-09] MEDS: 0.9 % SODIUM CHLORIDE 10 ML SYRINGE IV SCH ×3 (06:18→21:36)
[2020-06-09 06:49] LABS: Blood Urea Nitrogen 19 mg/dL (8-23); Calcium 8.3 mg/dL (8.6-10.4); Carbon Dioxide 29 mmol/L (22-30); Chloride 101 mmol/L (96-108); Glomerular Filtration Rate 34; Glucose 160 mg/dL (70-105)
--- NOTE | 2020-06-09 07:20 | Internal Med Progress Note ---
SUBJECTIVE Subjective Patient information: Note initiated : 06/09/20 at 7:17 am Service Date, if different from initiated Date: [] Patient: Bobbi Murphy a 64 y/o F admitted on 06/07/20 for possible sepsis. Chief Complaint: [] Interval history: History of present illness: Ms. Murphy is a 64 year old F Presents the ED with weakness and falls. Patient says she has been declining over the past week or so. She was put on antibiotic over week ago for a potential urinary tract infection which she thought was the case. Urine looks pretty good today although as previously mentioned she has been on antibiotics. She had a CT of the head which was unremarkable. Chest x-ray was concern for possibly some pulmonary edema. She had a CT chest abdomen pelvis rule out sepsis and further evaluation of lungs which showed bronchitis emphysema atelectasis and some very small bilateral pleural effusions. Abdomen pelvis was unremarkable for acute process. In the ED she dipped 87% on room air. And was put on several liters of oxygen. When I visited with her had her on half a liter and she was satting well. She has lower extremity edema from time to time she says tach a little bit worse today. Complained of a cough over the past week and says at times is been productive of white sputum. She is felt wheezy as well. She has some chronic shortness of breath for that she is had for at least 6 months but then noticed increased shortness of breath for 5 days ago. She does have a history of asthma no diagnosed history of COPD although CT does show emphysema type changes. She has been taking all her medications has not missed any. 1/6 Poor sleep but nothing in particular other than first night hospital per the patient. No new complaints. She has a mild dry cough. She has minimal dyspnea. She is on room air while awake but did require some oxygen while sleeping. Has never been evaluated for obstructive sleep apnea. 1/7 Poor sleep but otherwise no new complaints other than her chronic headache. Creatinine did bump. Did receive Lasix in ED. Will give gentle IV fluids today. On room air while awake. Patient essentially wheelchair-bound. Case management for placement issues possible short stay at SNF but does not sound like patient will agree to it. Review of Systems: denies fever/chills/nausea/vomiting/chest or abdominal pain/diarrhea. Otherwise see above. Constitutional Vitals: Vital Signs Temp Pulse Resp BP Pulse Ox 98.5 F 67 18 133/61 93 06/09/20 03:51 06/09/20 03:54 06/08/20 23:28 06/09/20 03:54 06/09/20 03:54 Period Temp Pulse Resp BP Sys/Nichols Pulse Ox Last 24 Hr 96.7 F-98.7 F 62-69 13-23 124-139/47-109 92-97 Intake and Output 06/08/20 06/09/20 06/09/20 21:59 05:59 13:59 Intake Total 770 950 Output Total 350 Balance 770 600 Weight 147.962 kg Intake & Output: Intake & Output 06/08/20 06/09/20 06/09/20 21:59 05:59 13:59 Intake Total 770 950 Output Total 350 Balance 770 600 Weight 147.962 kg Intake: IV 150 Oral 620 950 Output: Urine Catheter Amount 350 Other: Meal Dinner Percent of Meal Consumed 100% Urine Appearance Uretheral ([place]) Cloudy Urine Color Dark Yellow Uretheral ([place]) Dark Yellow Exam: General: Alert, Awake, No acute Distress,obese Eyes/N/T: EOMI, Head/Neck: neck supple, CV: Regular RR today, No murmurs, Pulm: Clear b/l, no wheezing/rhonchi/rales Abd: soft, nontender, +BS x4 Ext: no clubbing/cyanosis, 1+ RLL edema Neuro: Alert, no focal deficits, moves all extremities, Skin: warm/dry OBJ DATA Labs CBC & Chem 7: 06/08/20 05:04 06/09/20 04:52 Labs: Abnormal Lab Results 06/09/20 06/08/20 06/08/20 04:52 05:04 05:04 RBC Hgb Hct MCV MCH MCHC RDW MPV Lymph # (Auto) VBG Lactic Acid Carbon Dioxide 31 H Anion Gap 5.0 L 7.0 L Creatinine 1.6 H 1.2 H Glucose 160 H 115 H Calcium 8.3 L 8.4 L GGT 90 H Alkaline Phosphatase 130 H C-Reactive Protein 2.20 H NT-Pro-B Natriuret Pep Albumin 2.4 L Globulin Albumin/Globulin Ratio 0.7 L Urine Protein Urine Glucose (UA) Urine RBC Urine Mucus 06/08/20 06/07/20 06/07/20 05:04 09:52 09:52 RBC 3.79 L Hgb 9.2 L Hct 30.6 L MCV MCH 24.3 L MCHC 30.1 L RDW 15.5 H MPV 11.3 H Lymph # (Auto) VBG Lactic Acid 2.6 H Carbon Dioxide Anion Gap 6.0 L Creatinine 1.2 H Glucose 264 H Calcium GGT Alkaline Phosphatase 140 H C-Reactive Protein NT-Pro-B Natriuret Pep 484.3 H Albumin 2.5 L Globulin 4.1 H Albumin/Globulin Ratio 0.6 L Urine Protein Urine Glucose (UA) Urine RBC Urine Mucus 06/07/20 06/07/20 09:52 09:51 RBC Hgb 9.8 L Hct 31.7 L MCV 78.7 L MCH 24.3 L MCHC 30.9 L RDW 15.3 H MPV 10.8 H Lymph # (Auto) 1.48 L VBG Lactic Acid Carbon Dioxide Anion Gap Creatinine Glucose Calcium GGT Alkaline Phosphatase C-Reactive Protein NT-Pro-B Natriuret Pep Albumin Globulin Albumin/Globulin Ratio Urine Protein 100 A Urine Glucose (UA) 150 A Urine RBC 18 H Urine Mucus Few A Meds: Medications Acetaminophen (Tylenol) 650 mg PO Q6HP PRN PRN Reason: PAIN/FEVER > 101 Acetaminophen/Butalbital/Caffeine (Fioricet) 1 tab PO Q4HP PRN PRN Reason: Headache Last Admin: 06/08/20 10:20 Dose: 1 tab Documented by: Hydrocodone Bitart/Acetaminophen ([place] 7.5/325mg) 1 tab PO QID PRN; Protocol PRN Reason: Pain Last Admin: 06/08/20 16:23 Dose: 1 tab Documented by: Albuterol/Ipratropium (Duoneb) 3 ml NEB Q4HP PRN PRN Reason: Shortness Of Breath Albuterol/Ipratropium (Duoneb) 3 ml NEB Q8H [facility] Last Admin: 06/09/20 03:10 Dose: Not Given Documented by: Amiodarone [facility] (Cordarone) [facility] Last Admin: 06/08/20 08:05 Dose: 200 mg Documented by: Apixaban (Eliquis) 5 mg PO BID [facility] Last Admin: 06/08/20 21:16 Dose: 5 mg Documented by: Aspirin (Aspirin) 81 mg PO DAILY [facility] Last Admin: 06/08/20 08:07 Dose: 81 mg Documented by: Carbidopa/Levodopa (Sinemet 10/100) 1 tab PO BID [facility] Last Admin: 06/08/20 21:16 Dose: 1 tab Documented by: [facility] ([facility]letal) [facility] Last Admin: 06/08/20 17:58 Dose: 200 mg Documented by: Dextrose (Dextrose 50%) 0 ml IV UD PRN PRN Reason: Hypoglycemia Diagnostic Test (Pha) (Accu-Chek) 1 each FS [facility] Last Admin: 06/08/20 21:17 Dose: 1 each Documented by: Docusate Sodium (Colace) 100 mg PO BID [facility] Last Admin: 06/08/20 21:30 Dose: Not Given Documented by: Glucose (Insta-Glucose) 15 gm PO PRN PRN PRN Reason: Hypoglycemia Hydralazine HCl (Apresoline) 0 mg IV Q2HP PRN PRN Reason: Hypertension Potassium Chloride 40 meq/ (Dextrose) 520 mls @ 130 mls/hr IV UD PRN PRN Reason: Potassium < 3 Magnesium Sulfate (Magnesium Sulfate) 2 gm in 50 mls @ 50 mls/hr IV UD PRN PRN Reason: Magnesium </= 1.6 Levofloxacin (Levaquin) 750 mg in 150 mls @ 100 mls/hr IV Q24H [facility]; Protocol Last Infusion: 06/08/20 16:16 Dose: Infused Documented by: Insulin Human Lispro (Humalog) 0 unit SQ [facility]; Protocol Last Admin: 06/08/20 21:17 Dose: 10 units Documented by: Labetalol HCl (Trandate) 0 mg IV Q2HP PRN PRN Reason: Hypertension Lactulose (Cephulac) 20 gm PO DAILYP PRN PRN Reason: Constipation Metoprolol Succinate (Toprol Xl) 100 mg PO DAILY [facility] Last Admin: 06/08/20 10:20 Dose: 100 mg Documented by: Morphine Sulfate (Ms Contin) 15 mg PO Q12H [facility]; Protocol Last Admin: 06/08/20 19:57 Dose: 15 mg Documented by: Ondansetron HCl (Zofran) 4 mg IV Q4HP PRN PRN Reason: Nausea And Vomiting Pantoprazole Sodium (Protonix) 40 mg PO QAMAC [facility] Last Admin: 06/08/20 08:06 Dose: 40 mg Documented by: Polyethylene Glycol (Miralax) 17 gm PO DAILYP PRN PRN Reason: Constipation Potassium Chloride (Kdur) 10 meq PO BIDCC [facility] Last Admin: 06/08/20 17:58 Dose: 10 meq Documented by: Potassium Chloride (Kdur) 40 meq PO UD PRN PRN Reason: Potssium is 3-3.5 Potassium Chloride (Kdur) 40 meq PO UD PRN PRN Reason: Potassium < 3 Prednisone (Prednisone) 40 mg PO [facility] Pregabalin (Lyrica) 50 mg PO BID [facility] Last Admin: 06/08/20 21:19 Dose: 50 mg Documented by: Senna (Senokot) 2 tab PO DAILYP PRN PRN Reason: Constipation Sodium Chloride (Saline Flush) 10 ml IV Q8 [facility] Last Admin: 06/09/20 06:18 Dose: 10 ml Documented by: Venlafaxine HCl (Effexor Xr) 150 mg PO QDAY [facility] Last Admin: 06/08/20 08:06 Dose: 150 mg Documented by: Zolpidem Tartrate (Ambien) 10 mg PO HSP PRN PRN Reason: Insomnia Last Admin: 06/08/20 21:16 Dose: 10 mg Documented by: A/P Narrative A/P Narrative: A: *Acute hypoxic respiratory failure: multifactorial from acute on likely chronic bronchitis / Atelectasis from restrictive component d/t obesity -2L NC in ED, now room air to 0.5 while awake but did need supp while sleeping *Acute Bronchitis, suspect COPD w/centrilobular emphysema: -RVP/covid neg *Gen Weakness/falling: is on narcotics, always potential contributor *h/o peripheral edema: -echo with good EF, grade II diastolic dysfxn. *HTN urgency: improved *DM/neuropathy: *CKD III: -Cr bumped to 1.6 *Anemia, chronic: *PAF: On amiodarone and apixaban *Depression/anxiety: *Morbid obesity: *PVD: On cilostazol/ASA *GERD: *Complex regional pain syndrome: Follows with Dr. Bernard *on sinemet for tremors: started outpt empirically until seen by neurology *Chronic BEAUCHAMP's *Likely ALISSA: *incidental small pulm nodules on CT P: -gentle IVF today -empiric abx -Nebs, IS/Acapella -o2 support wean -HENNY/elevate legs -cont home amiodarone/BB/aspirin/statin/cilostazol -hold ACEI for now and f/u renal fxn -basal and ssi -pt/ot -f/u with pulmonology outpt for sleep study -f/u CT chest in 3-months to evaluate pulm nodules -ppx:apixaban/home ppi DNR Time Spent With Patient Time: Total time spent is greater than 50% in coordination of care (as documented) at patient's floor/unit and/or counseling patient: QUALITY VTE Deep Vein Thrombosis/Pulmonary Embolism Present on Admission: No
[2020-06-09] MEDS ORDERED: 0.9 % SODIUM CHLORIDE 1,000 ML IV SCH (07:30)
[2020-06-09] MEDS: morphine 15 MG TAB.SR.12H PO SCH ×2 (08:10→21:25)
[2020-06-09] MEDS: INSULIN LISPRO 1 UNIT/0.01 ML UNIT SQ SCH ×4 (08:10→21:35)
[2020-06-09] MEDS: POTASSIUM CHLORIDE 10 MEQ TABLET PO SCH ×2 (08:11→16:40)
[2020-06-09] MEDS: AMIODARONE HCL 200 MG TABLET PO SCH (08:11)
[2020-06-09] MEDS: predniSONE 20 MG TABLET PO SCH (08:11)
[2020-06-09] MEDS: CILOSTAZOL 100 MG TABLET PO SCH ×2 (08:11→16:40)
[2020-06-09] MEDS: PANTOPRAZOLE 40 MG TABLET PO SCH (08:11)
[2020-06-09] MEDS: ASPIRIN 81 MG TAB.CHEW PO SCH (09:08)
[2020-06-09] MEDS: DOCUSATE SODIUM 100 MG CAPSULE PO SCH ×2 (09:09→21:34)
[2020-06-09] MEDS: CARBIDOPA/LEVODOPA 10/100 TABLET PO SCH ×2 (09:09→21:37)
[2020-06-09] MEDS: APIXABAN 5 MG TABLET PO SCH ×2 (09:09→21:37)
[2020-06-09] MEDS: LEVOFLOXACIN 750 MG/150 ML BAG IV SCH (09:09)
[2020-06-09] MEDS: VENLAFAXINE 150 MG CAP.XL.24H PO SCH (09:09)
[2020-06-09] MEDS: PREGABALIN 25 MG CAPSULE PO SCH (09:10)
[2020-06-09] MEDS: METOPROLOL SUCCINATE 50 MG TAB.XL.24H PO SCH (09:10)
[2020-06-09] MEDS: INSULIN GLARGINE, HUMAN 1 UNIT/0.01 ML SQ SCH (21:36)
[2020-06-09] MEDS: ZOLPIDEM 5 MG TABLET PO PRN (21:37)
[2020-06-09] MEDS: PREGABALIN 75 MG CAPSULE PO SCH (21:37)
[2020-06-10] MEDS: IPRATROPIUM/ALBUTEROL 3 ML AMPUL.NEB NEB SCH ×3 (02:22→19:20)
[2020-06-10] MEDS: 0.9 % SODIUM CHLORIDE 10 ML SYRINGE IV SCH ×3 (05:52→22:00)
[2020-06-10] MEDS: AMIODARONE HCL 200 MG TABLET PO SCH (07:03)
[2020-06-10] MEDS: PANTOPRAZOLE 40 MG TABLET PO SCH (07:04)
[2020-06-10] MEDS: POTASSIUM CHLORIDE 10 MEQ TABLET PO SCH ×2 (07:04→17:03)
[2020-06-10] MEDS: CILOSTAZOL 100 MG TABLET PO SCH ×2 (07:04→17:03)
[2020-06-10] MEDS: predniSONE 20 MG TABLET PO SCH (07:04)
[2020-06-10 07:06] LABS: Blood Urea Nitrogen 28 mg/dL (8-23); Carbon Dioxide 27 mmol/L (22-30); Chloride 103 mmol/L (96-108); Glomerular Filtration Rate 34; Glucose 171 mg/dL (70-105)
[2020-06-10] MEDS: morphine 15 MG TAB.SR.12H PO SCH ×2 (07:06→20:43)
[2020-06-10] MEDS: INSULIN LISPRO 1 UNIT/0.01 ML UNIT SQ SCH ×4 (07:19→20:45)
[2020-06-10] MEDS: VENLAFAXINE 150 MG CAP.XL.24H PO SCH (08:51)
[2020-06-10] MEDS: PREGABALIN 75 MG CAPSULE PO SCH ×2 (08:51→20:41)
[2020-06-10] MEDS: METOPROLOL SUCCINATE 50 MG TAB.XL.24H PO SCH (08:51)
[2020-06-10] MEDS: APIXABAN 5 MG TABLET PO SCH ×2 (08:51→20:42)
[2020-06-10] MEDS: CARBIDOPA/LEVODOPA 10/100 TABLET PO SCH ×2 (08:51→20:42)
[2020-06-10] MEDS: DOCUSATE SODIUM 100 MG CAPSULE PO SCH ×2 (08:52→20:46)
[2020-06-10] MEDS: ASPIRIN 81 MG TAB.CHEW PO SCH (08:52)
[2020-06-10] MEDS: LEVOFLOXACIN 750 MG/150 ML BAG IV SCH (08:57)
--- NOTE | 2020-06-10 11:26 | Internal Med Progress Note ---
SUBJECTIVE Subjective Patient information: Note initiated : 06/10/20 at 11:22 am Service Date, if different from initiated Date: [] Patient: Bobbi Murphy a 64 y/o F admitted on 06/07/20 for possible sepsis. Chief Complaint: [] Interval history: History of present illness: Ms. Murphy is a 64 year old F Presents the ED with weakness and falls. Patient says she has been declining over the past week or so. She was put on antibiotic over week ago for a potential urinary tract infection which she thought was the case. Urine looks pretty good today although as previously mentioned she has been on antibiotics. She had a CT of the head which was unremarkable. Chest x-ray was concern for possibly some pulmonary edema. She had a CT chest abdomen pelvis rule out sepsis and further evaluation of lungs which showed bronchitis emphysema atelectasis and some very small bilateral pleural effusions. Abdomen pelvis was unremarkable for acute process. In the ED she dipped 87% on room air. And was put on several liters of oxygen. When I visited with her had her on half a liter and she was satting well. She has lower extremity edema from time to time she says tach a little bit worse today. Complained of a cough over the past week and says at times is been productive of white sputum. She is felt wheezy as well. She has some chronic shortness of breath for that she is had for at least 6 months but then noticed increased shortness of breath for 5 days ago. She does have a history of asthma no diagnosed history of COPD although CT does show emphysema type changes. She has been taking all her medications has not missed any. 1/ Poor sleep but nothing in particular other than first night hospital per the patient. No new complaints. She has a mild dry cough. She has minimal dyspnea. She is on room air while awake but did require some oxygen while sleeping. Has never been evaluated for obstructive sleep apnea. 1/ Poor sleep but otherwise no new complaints other than her chronic headache. Creatinine did bump. Did receive Lasix in ED. Will give gentle IV fluids today. On room air while awake. Patient essentially wheelchair-bound. Case management for placement issues possible short stay at SNF but does not sound like patient will agree to it. 06/10-patient stable overnight with no significant events. No additional concerns per nursing staff. However Patient does not feel close to baseline, feels very fatigued lethargi and does not feel good this morning. She denies however chest pain, diarrhea. Morbidly obese with frequent apnea noted. Anticipate discharge in 24 hours with outpatient sleep study/pulmonology follow-up Constitutional Vitals: Vital Signs Temp Pulse Resp BP Pulse Ox 98.2 F 62 18 133/49 97 06/10/20 08:00 06/10/20 10:59 06/10/20 10:59 06/10/20 08:00 06/10/20 08:17 Period Temp Pulse Resp BP Sys/Nichols Pulse Ox Last 24 Hr 97.6 F-98.9 F 55-62 16-20 110-133/49-78 94-98 Intake and Output 06/09/20 06/10/20 06/10/20 21:59 05:59 13:59 Intake Total 1620 300 150 Output Total 300 175 700 Balance 1320 125 -550 Weight 148.778 kg Intake & Output: Intake & Output 06/09/20 06/10/20 06/10/20 21:59 05:59 13:59 Intake Total 1620 300 150 Output Total 300 175 700 Balance 1320 125 -550 Weight 148.778 kg Intake: IV 1000 150 Sodium Chloride 0.9% 1,000 ml @ 1000 100 mls/hr IV .Q10H [facility] Rx#: [id number] Oral 620 300 Output: Urine Catheter Amount 300 175 Void Amount 700 Other: Meal snack Breakfast Percent of Meal Consumed 100% 100% Feeding Ability Independent Urine Appearance Clear Clear Clear Uretheral ([place]) Clear Clear Urine Color Straw Bright Yellow Straw Uretheral ([place]) Straw Straw Urine Odor Normal Normal Morbidly obese Nonlabored breathing anxious [place] is draining clear urine OBJ DATA Labs CBC & Chem 7: 06/08/20 05:04 06/10/20 04:44 Labs: Abnormal Lab Results 06/10/20 06/09/20 06/08/20 04:44 04:52 05:04 RBC Hgb Hct MCH MCHC RDW MPV Carbon Dioxide Anion Gap 7.0 L 5.0 L BUN 28 H Creatinine 1.6 H 1.6 H Glucose 171 H 160 H Calcium 8.0 L 8.3 L GGT Alkaline Phosphatase C-Reactive Protein 2.20 H Albumin Albumin/Globulin Ratio 06/08/20 06/08/20 05:04 05:04 RBC 3.79 L Hgb 9.2 L Hct 30.6 L MCH 24.3 L MCHC 30.1 L RDW 15.5 H MPV 11.3 H Carbon Dioxide 31 H Anion Gap 7.0 L BUN Creatinine 1.2 H Glucose 115 H Calcium 8.4 L GGT 90 H Alkaline Phosphatase 130 H C-Reactive Protein Albumin 2.4 L Albumin/Globulin Ratio 0.7 L Meds: Medications Acetaminophen (Tylenol) 650 mg PO Q6HP PRN PRN Reason: PAIN/FEVER > 101 Acetaminophen/Butalbital/Caffeine (Fioricet) 1 tab PO Q4HP PRN PRN Reason: Headache Last Admin: 06/08/20 10:20 Dose: 1 tab Documented by: Hydrocodone Bitart/Acetaminophen ([place] 7.5/325mg) 1 tab PO QID PRN; Protocol PRN Reason: Pain Last Admin: 06/08/20 16:23 Dose: 1 tab Documented by: Albuterol/Ipratropium (Duoneb) 3 ml NEB Q4HP PRN PRN Reason: Shortness Of Breath Albuterol/Ipratropium (Duoneb) 3 ml NEB Q8H [facility] Last Admin: 06/10/20 10:58 Dose: 3 ml Documented by: [facility]iod[facility]) [facility] Last Admin: 06/10/20 07:03 Dose: 200 mg Documented by: Apixaban (Eliquis) 5 mg PO BID [facility] Last Admin: 06/10/20 08:51 Dose: 5 mg Documented by: Aspirin (Aspirin) 81 mg PO DAILY [facility] Last Admin: 06/10/20 08:52 Dose: 81 mg Documented by: Carbidopa/Levodopa (Sinemet 10/100) 1 tab PO BID [facility] Last Admin: 06/10/20 08:51 Dose: 1 tab Documented by: Cilostazol (Pletal) 200 mg PO BIDAC [facility] Last Admin: 06/10/20 07:04 Dose: 200 mg Documented by: Dextrose (Dextrose 50%) 0 ml IV UD PRN PRN Reason: Hypoglycemia Diagnostic Test (Pha) (Accu-Chek) 1 each FS ACHS [facility] Last Admin: 06/10/20 11:18 Dose: 1 each Documented by: Docusate Sodium (Colace) 100 mg PO BID [facility] Last Admin: 06/10/20 08:52 Dose: Not Given Documented by: Glucose (Insta-Glucose) 15 gm PO PRN PRN PRN Reason: Hypoglycemia Hydralazine HCl (Apresoline) 0 mg IV Q2HP PRN PRN Reason: Hypertension Potassium Chloride 40 meq/ (Dextrose) 520 mls @ 130 mls/hr IV UD PRN PRN Reason: Potassium < 3 Magnesium Sulfate (Magnesium Sulfate) 2 gm in 50 mls @ 50 mls/hr IV UD PRN PRN Reason: Magnesium </= 1.6 Levofloxacin (Levaquin) 750 mg in 150 mls @ 100 mls/hr IV Q24H [facility]; Protocol Last Infusion: 06/10/20 10:31 Dose: Infused Documented by: Insulin Glargine (Lantus) 38 unit SQ HS [facility] Last Admin: 06/09/20 21:36 Dose: 38 units Documented by: Insulin Human Lispro (Humalog) 0 unit SQ ACHS [facility]; Protocol Last Admin: 06/10/20 11:18 Dose: 8 units Documented by: Labetalol HCl (Trandate) 0 mg IV Q2HP PRN PRN Reason: Hypertension Lactulose (Cephulac) 20 gm PO DAILYP PRN PRN Reason: Constipation Metoprolol Succinate (Toprol Xl) 100 mg PO DAILY [facility] Last Admin: 06/10/20 08:51 Dose: 100 mg Documented by: Morphine Sulfate (Ms Contin) 15 mg PO Q12H [facility]; Protocol Last Admin: 06/10/20 07:06 Dose: 15 mg Documented by: Ondansetron HCl (Zofran) 4 mg IV Q4HP PRN PRN Reason: Nausea And Vomiting Pantoprazole Sodium (Protonix) 40 mg PO QAMAC [facility] Last Admin: 06/10/20 07:04 Dose: 40 mg Documented by: Polyethylene Glycol (Miralax) 17 gm PO DAILYP PRN PRN Reason: Constipation Potassium Chloride (Kdur) 10 meq PO BIDCC [facility] Last Admin: 06/10/20 07:04 Dose: 10 meq Documented by: Potassium Chloride (Kdur) 40 meq PO UD PRN PRN Reason: Potssium is 3-3.5 Potassium Chloride (Kdur) 40 meq PO UD PRN PRN Reason: Potassium < 3 Prednisone (Prednisone) 40 mg PO QAC [facility] Last Admin: 06/10/20 07:04 Dose: 40 mg Documented by: Pregabalin (Lyrica) 225 mg PO BID [facility] Last Admin: 06/10/20 08:51 Dose: 225 mg Documented by: Senna (Senokot) 2 tab PO DAILYP PRN PRN Reason: Constipation Sodium Chloride (Saline Flush) 10 ml IV Q8 [facility] Last Admin: 06/10/20 05:52 Dose: 10 ml Documented by: Venlafaxine HCl (Effexor Xr) 150 mg PO QDAY [facility] Last Admin: 06/10/20 08:51 Dose: 150 mg Documented by: Zolpidem Tartrate (Ambien) 10 mg PO HSP PRN PRN Reason: Insomnia Last Admin: 06/09/20 21:37 Dose: 10 mg Documented by: A/P Narrative A/P Narrative: A: *Acute hypoxic respiratory failure: multifactorial from acute on likely chronic bronchitis / Atelectasis from restrictive component d/t obesity. Currently on 1 L oxygen, recommend outpatient sleep study *Acute Bronchitis, suspect COPD w/centrilobular emphysema:-RVP/covid neg *Gen Weakness/falling: is on narcotics, always potential contributor. Continue PT OT eval and treatment *h/o peripheral edema:-echo with good EF, grade II diastolic dysfxn. *HTN urgency: improved *DM/neuropathy: *CKD III: Cr bumped to 1.6, plateaued *Anemia, chronic: *PAF: On amiodarone and apixaban *Depression/anxiety: *Morbid obesity: *PVD: On cilostazol/ASA *GERD: *Complex regional pain syndrome: Follows with Dr. Bernard *on sinemet for tremors: started outpt empirically until seen by neurology *Chronic BEAUCHAMP's *Likely ALISSA: *incidental small pulm nodules on CT Plan : -Possible discharge in 24 hours -empiric abx -Nebs, IS/Acapella -Wean oxygen as tolerated -cont home amiodarone/BB/aspirin/statin/cilostazol -hold ACEI for now and f/u renal fx -pt/ot -f/u with pulmonology outpt for sleep study -f/u CT chest in 3-months to evaluate pulm nodules -ppx:apixaban/home ppi DNR Time Spent With Patient Time: Total time spent is greater than 50% in coordination of care (as documented) at patient's floor/unit and/or counseling patient: QUALITY VTE Deep Vein Thrombosis/Pulmonary Embolism Present on Admission: No
[2020-06-10] MEDS: ZOLPIDEM 5 MG TABLET PO PRN (20:43)
[2020-06-10] MEDS: INSULIN GLARGINE, HUMAN 1 UNIT/0.01 ML SQ SCH (20:44)
[2020-06-11] MEDS: IPRATROPIUM/ALBUTEROL 3 ML AMPUL.NEB NEB SCH ×2 (04:31→11:16)
[2020-06-11] MEDS: 0.9 % SODIUM CHLORIDE 10 ML SYRINGE IV SCH (04:47)
[2020-06-11] MEDS: POTASSIUM CHLORIDE 10 MEQ TABLET PO SCH (07:08)
[2020-06-11] MEDS: PANTOPRAZOLE 40 MG TABLET PO SCH (07:08)
[2020-06-11] MEDS: INSULIN LISPRO 1 UNIT/0.01 ML UNIT SQ SCH ×2 (07:08→11:26)
[2020-06-11] MEDS: morphine 15 MG TAB.SR.12H PO SCH (07:08)
[2020-06-11] MEDS: AMIODARONE HCL 200 MG TABLET PO SCH (07:08)
[2020-06-11] MEDS: predniSONE 20 MG TABLET PO SCH (07:08)
[2020-06-11] MEDS: CILOSTAZOL 100 MG TABLET PO SCH (07:08)
[2020-06-11] MEDS: PREGABALIN 75 MG CAPSULE PO SCH (08:27)
[2020-06-11] MEDS: CARBIDOPA/LEVODOPA 10/100 TABLET PO SCH (08:27)
[2020-06-11] MEDS: APIXABAN 5 MG TABLET PO SCH (08:27)
[2020-06-11] MEDS: METOPROLOL SUCCINATE 50 MG TAB.XL.24H PO SCH (08:27)
[2020-06-11] MEDS: ASPIRIN 81 MG TAB.CHEW PO SCH (08:27)
[2020-06-11] MEDS: VENLAFAXINE 150 MG CAP.XL.24H PO SCH (08:27)
[2020-06-11] MEDS: LEVOFLOXACIN 750 MG/150 ML BAG IV SCH (08:27)
[2020-06-11] MEDS: DOCUSATE SODIUM 100 MG CAPSULE PO SCH (09:23)
--- NOTE | 2020-06-11 10:06 | Discharge Summary ---
Discharge Provider Provider Patient information: Note initiated : 06/11/20 at 10:03 am Service Date, if different from initiated Date: [] Patient: Bobbi Murphy a 64 y/o F admitted on 06/07/20 for possible sepsis. Discharge diagnosis *Acute hypoxic respiratory failure: multifactorial from acute on likely chronic bronchitis / Atelectasis from restrictive component d/t obesity. Exercise oximetry for outpatient oxygen qualification prior to discharge *Acute Bronchitis, suspect COPD w/centrilobular emphysema:-RVP/covid neg. clinically improved. *Gen Weakness/falling: is on narcotics, always potential contributor. Managed with aggressive inpatient therapies. Recommend outpatient home health physical therapy on discharge *h/o peripheral edema:-echo with good EF, grade II diastolic dysfxn. *HTN urgency: improved *DM/neuropathy: *CKD III: Creatinine stable. Recommend outpatient nephrology follow-up for management of chronic kidney disease *Anemia, chronic: *PAF: On amiodarone and apixaban *Depression/anxiety: *Morbid obesity: *PVD: On cilostazol/ASA *GERD: *Complex regional pain syndrome: Follows with Dr. Bernard *on sinemet for tremors: started outpt empirically until seen by neurology *Chronic BEAUCHAMP's *Likely ALISSA: *incidental small pulm nodules on CT Brief hospital course Ms. Murphy is a 64 year old F Presents the ED with weakness and falls. Patient says she has been declining over the past week or so. She was put on antibiotic over week ago for a potential urinary tract infection which she thought was the case. Urine looks pretty good today although as previously mentioned she has been on antibiotics. She had a CT of the head which was unremarkable. Chest x-ray was concern for possibly some pulmonary edema. She had a CT chest abdomen pelvis rule out sepsis and further evaluation of lungs which showed bronchitis emphysema atelectasis and some very small bilateral pleural effusions. Abdomen pelvis was unremarkable for acute process. In the ED she dipped 87% on room air. And was put on several liters of oxygen. When I visited with her had her on half a liter and she was satting well. She has lower extremity edema from time to time she says tach a little bit worse today. Complained of a cough over the past week and says at times is been productive of white sputum. She is felt wheezy as well. She has some chronic shortness of breath for that she is had for at least 6 months but then noticed increased gina rtness of breath for 5 days ago. She does have a history of asthma no diagnosed history of COPD although CT does show emphysema type changes. She has been taking all her medications has not missed any. 06/08 Poor sleep but nothing in particular other than first night hospital per the patient. No new complaints. She has a mild dry cough. She has minimal dyspnea. She is on room air while awake but did require some oxygen while sleeping. Has never been evaluated for obstructive sleep apnea. 06/09 Poor sleep but otherwise no new complaints other than her chronic headache. Creatinine did bump. Did receive Lasix in ED. Will give gentle IV fluids today. On room air while awake. Patient essentially wheelchair-bound. Case management for placement issues possible short stay at SNF but does not sound like patient will agree to it. 06/10-patient stable overnight with no significant events. No additional concerns per nursing staff. However Patient does not feel close to baseline, feels very fatigued lethargi and does not feel good this morning. She denies however chest pain, diarrhea. Morbidly obese with frequent apnea noted. Anticipate discharge in 24 hours with outpatient sleep study/pulmonology follow-up 06/11-patient doing well. Discharging home to her with home health services and continued therapies. Exercise oximetry prior to discharge to qualify for home oxygen. Recommend outpatient CT in 3 months for evaluation of pulmonary nodules/outpatient sleep study for home CPAP. Date of admission: 06/07/20 18:49 Discharge date: 06/11/20 Primary care physician: Derrek Keen Consults: 06/07/20 Consult to Physician [CONS] Stat Comment: Consulting Provider: Chris Maurer Reason For Exam: Physician to Consult Discharge Meds Discharge Medications Home Medications Centrum Complete 1 ea PO QDAY 12/30/14 [History Confirmed 06/08/20 Last Taken 06/03/18] Toujeo SoloStar U-300 Insulin 38 unit SQ HS 12/30/14 [History Confirmed 06/08/20 Last Taken 01/28/17] albuterol sulfate [ProAir HFA] 1 - 2 puff IH PRN PRN 12/30/14 [History Confirmed 06/08/20 Last Taken 01/28/17] zfyjlmmplt-skhevqbmum-zpz-cod 1 cap PO PRN PRN 12/30/14 [History Confirmed 06/08/20 Last Taken 01/28/17] cholecalciferol (vitamin D3) 2,000 unit PO QDAY 12/30/14 [History Confirmed 06/08/20 Last Taken 06/07/20] cilostazol [Pletal] 100 mg PO BID 12/30/14 [History Confirmed 06/08/20 Last Taken 01/28/17] potassium chloride 10 meq PO BIDCC 12/30/14 [History Confirmed 06/07/20 Last Taken 01/28/17] zolpidem 10 mg PO HSP PRN 12/30/14 [History Confirmed 06/08/20 Last Taken 01/28/17] rabeprazole [AcipHex] 20 mg PO DAILY 10/13/15 [History Confirmed 06/07/20 Last Taken 01/28/17] aspirin 81 mg PO DAILY 02/07/16 [History Confirmed 06/08/20 Last Taken 01/28/17] amiodarone 200 mg tablet 200 mg PO DAILY tab 09/09/19 [History Confirmed 06/08/20 Last Taken Unknown] calcipotriene 0.005 % topical cream 1 applic TOPICAL .unknown g 09/09/19 [History Confirmed 06/08/20 Last Taken Unknown] Eliquis 5 mg PO BID 11/23/19 [History Confirmed 06/08/20 Last Taken Unknown] insulin aspart U-100 [Novolog Flexpen U-100 Insulin] See Protocol SUBCUT PRN PRN 11/23/19 [History Confirmed 06/08/20 Last Taken Unknown] metoprolol succinate 100 mg PO QDAY 11/24/19 [History Confirmed 06/08/20 Last Taken Unknown] venlafaxine 150 mg PO QDAY 11/24/19 [History Confirmed 06/08/20 Last Taken Unknown] lisinopril 20 mg PO BID #60 tab NS 12/01/19 [Rx Confirmed 06/08/20 Last Taken Unknown] morphine 15 mg tablet,extended release 15 mg PO Q12H #60 tab MDD 2 05/13/20 [Rx Confirmed 06/08/20 Last Taken Unknown] naloxone 4 mg/actuation nasal spray 4 mg INTRANASAL .COMPLEX PRN #2 each 05/13/20 [Rx Confirmed 06/08/20 Last Taken Unknown] hydrocodone 7.5 mg-acetaminophen 325 mg tablet 1 tab PO QID PRN #120 tab MDD 4 05/16/20 [Rx Confirmed 06/08/20 Last Taken Unknown] carbidopa-levodopa [Sinemet] 1 tab PO BID 06/08/20 [History Confirmed 06/08/20 Last Taken Unknown] pregabalin [Lyrica] 225 mg PO TID 06/08/20 [History Confirmed 06/09/20 Last Taken Unknown] COURSE Hospital Course Hospital course: . Discharge diagnosis: Acute hypoxic respiratory failure Time Spent with Patient Time attestation: Total time spent providing and/or coordinating discharge services: EXAM Constitutional Vitals: Temp Pulse Resp BP Pulse Ox 97.1 F 63 20 140/62 98 06/11/20 08:00 06/11/20 03:56 06/11/20 08:00 06/11/20 08:00 06/11/20 08:00 Discharge Plan Patient/Caregiver Discharge Instructions Activity: increase activity as tolerated Diet: Consistent Carbohydrate Instructions: Sleep Apnea (GEN), Fall Prevention for Older Adults (GEN), Weakness (GEN) Activity Restrictions/Additional Instructions: A referral has been sent to Dr. Canales (Derrick Boat Captain) for likely obstructive sleep apnea and COPD evaluation. They will contact you to schedule an appointment. Exercise oximetry for home oxygen qualification prior to discharge [facility] will contact you after discharge. If you have any questions please call PCP to coordinate outpatient CT chest in 3 months for evaluation of pulmonary nodule as an incidental finding during CT Outpatient nephrology follow-up for management of chronic kidney disease Transfer via home ambulance This discharge packet is provided to you to help keep you informed about your care. We want to ensure you get everything you need when you go home. You will also be receiving a call from us in a few days to follow up with you and see how you are doing since your discharge. This gives us a chance to listen to any concerns you maybe experiencing since you were discharged or any additional needs you may have, as well as providing us feedback on your care experience. We strive to always provide excellent care and thank you for your feedback and for choosing [facility]. Prescriptions: Continued Narcan 4 mg/actuation spray,non-aerosol 4 mg INTRANASAL .COMPLEX PRN (Reason: opioid overdose) Qty: 2 RF: 0 morphine 15 mg tablet extended release 15 mg PO Q12H MDD 2 Qty: 60 RF: 0 amiodarone 200 mg tablet 200 mg PO DAILY RF: 0 calcipotriene [Dovonex] 0.005 % cream 1 applic TOPICAL .unknown RF: 0 hydrocodone-acetaminophen 7.5-325 mg tablet 1 tab PO QID MDD 4 PRN (Reason: Pain) Qty: 120 RF: 0 cilostazol [Pletal] 50 MG tablet 100 mg PO BID RF: 0 potassium chloride 10 MEQ tablet extended release 10 meq PO BIDCC RF: 0 wgukzwvtrs-erapipvkvm-rmf-cod 1 EACH capsule 1 cap PO PRN PRN (Reason: Headache) RF: 0 zolpidem 10 MG tablet 10 mg PO HSP PRN (Reason: Insomnia) RF: 0 Toujeo SoloStar U-300 Insulin 300 UNIT/ML insulin pen 38 unit SQ HS RF: 0 cholecalciferol (vitamin D3) 2,000 UNIT tablet 2,000 unit PO QDAY RF: 0 Centrum Complete 1 EACH tablet 1 ea PO QDAY RF: 0 albuterol sulfate [ProAir HFA] 8.5 GM HFA aerosol inhaler 1 - 2 puff IH PRN PRN (Reason: Shortness Of Breath) RF: 0 rabeprazole [AcipHex] 20 MG tablet,delayed release (DR/EC) 20 mg PO DAILY RF: 0 aspirin 325 MG tablet,delayed release (DR/EC) 81 mg PO DAILY RF: 0 Eliquis 5 mg tablet 5 mg PO BID RF: 0 insulin aspart U-100 [Novolog Flexpen U-100 Insulin] 100 unit/mL (3 mL) insulin pen See Protocol unit subcut PRN PRN (Reason: Hyperglycemia) RF: 0 venlafaxine 150 mg Tablet Extended Release 24hr 150 mg PO QDAY RF: 0 metoprolol succinate 50 mg Capsule,Sprinkle,Er 24hr 100 mg PO QDAY RF: 0 lisinopril 20 mg Tablet 20 mg PO BID Qty: 60 RF: 2 carbidopa-levodopa [Sinemet] 25-100 mg tablet 1 tab PO BID RF: 0 pregabalin [Lyrica] 75 mg capsule 225 mg PO TID RF: 0 Discontinued fluconazole 150 mg tablet 150 mg PO DAILY RF: 0 sulfamethoxazole-trimethoprim 800-160 mg tablet 1 tab PO BID RF: 0 Follow Up Plan Follow up with: Luc Canales MD [Physician] - (A referral has been sent, they will contact you to schedule an appoinment) Derrek Keen MD [Primary Care Provider] - (We were unable to get an appoinment scheduled on Saturday before the office closed. Please call on Saturday to schedule an appointment.) Patient Disposition: Home Health Service Prognosis: Fair Rehab Potential: Fair I certify that the patient requires SNF services: No Overall status at discharge: patient is progressing back to baseline Discharge Orders: Discharge Order (Routine); Ordered 06/11/20 Ordered By: Naresh SHIRLEY VTE Deep Vein Thrombosis/Pulmonary Embolism Present on Admission: No
== END 2020-06-11 13:09 | disposition home health service (06) | DRG 189 ==
LOC: ED 09:18 → ICU 18:49
PROVIDERS: ADMIT Internal Medicine; ATTEND Internal Medicine